=== PATIENT | female | born 1955 | race Caucasian/White ===

== ENCOUNTER → 2016-05-10 | Outpatient (CLI) | payer OTHER ==
[~2016-05-10] MED LIST: /CELE20CA; /HCTZ25TA PO; /ONDA4TA OR; /PANT40TA OR; /PRAV20TA PO; /QUET10TA; /ZOLP6ER; AMBI10TA; AMBI10TA OR; AMBI5TAB; AMIT75TA PO; ARTIDRO OU; ASPI81TA7 PO; BUDE150T OR; BUSP15TA OR; BUSP5TA PO; CALCCHW19 PO; CLON1TAB OR; CLON2TAB PO; COLA100C2 OR; DALMANE PO; DEPAKOTE ER; DOCU10ELUD PO; EFFE75CA75 OR; HYDR12.56 PO; HYDR25TA6 OR; HYDR25TA8 OR; IBUP800T; KLON0.5T OR; KLON1TAB; KLON1TAB OR; KLON1TAB PO; LAMICTAL PO; LUNE3TAB PO; LYRI150C OR; LYRI200C OR; PAXI20TA3 PO; PRAV10TA2 OR; PREG100CA OR; PROZ20CA OR; PROZ20CA11 PO; PROZ40CA OR; PROZ40CA PO; PROZAC20 PO; PROZAC40 PO; QUET20XRTB; QUET30TA OR; SENO8.6T5; SER; SERO200T PO; SEROQUEL PO; SUBOXONE; Seroquel; TOPA50TA PO; TRAZ100T; TRAZ100T OR; TRAZ150T PO; TRAZODONE PO; Trazodone; VICODIN-ES 1-2 TABS; VICODIN-ES PO; WELL100T OR; WELL75TA PO; WELLTAB4 PO; XANA1TAB2 PO; ZOLO100T; ZOLO50TA; ZOLOFT; ZOLOFT100; ambien PO
[2016-05-10 12:56] LABS: ALBUMIN 3.9 GM/DL (3.2-5.2); ALBUMIN/GLOBULIN RATIO 1.08 (1.00-1.93); ALKALINE PHOSPHATASE 62 U/L (45-117); ALT/SGPT 34 U/L (12-78); ANION GAP 8 MEQ/L (8-16); AST/SGOT 21 U/L (15-37); BILIRUBIN,TOTAL 0.8 MG/DL (0.2-1.0); BLOOD UREA NITROGEN 12 MG/DL (7-18); CALCIUM LEVEL 9.3 MG/DL (8.5-10.1); CARBON DIOXIDE LEVEL 29 MEQ/L (21-32); CHLORIDE LEVEL 103 MEQ/L (98-107); CHOLESTEROL LEVEL 239 MG/DL (<200); CREATININE FOR GFR 0.82 MG/DL (0.55-1.02); GLOMERULAR FILTRATION RATE > 60.0 (>51); GLUCOSE, FASTING 102 MG/DL (70-105); POTASSIUM SERUM 4.5 MEQ/L (3.5-5.1); SODIUM LEVEL 140 MEQ/L (136-145); TOTAL PROTEIN 7.5 GM/DL (6.4-8.2); TRIGLYCERIDES LEVEL 135 MG/DL (<150)
[2016-05-11 16:57] LABS: FERRITIN 51 NG/ML (8-252); MAGNESIUM LEVEL 2.2 MG/DL (1.8-2.4)
[2016-05-11 18:28] LABS: PERCENT SATURATION 23.9 % (13.2-37.4); TOTAL IRON BINDING CAPACITY 364 UG/DL (250-450)
== END ==
LOC: M WUC 09:25
PROVIDERS: ATTEND Student in an Organized Health Care Education/Training Program
DX: E78.5 Hyperlipidemia, unspecified (principal); I10 Essential (primary) hypertension

== ENCOUNTER 2016-07-07 10:07 | Emergency (ER) | payer OTHER ==
[~2016-07-07] VITALS: Ht 165.1 cm; Wt 91.6 kg
[2016-07-07] MEDS ORDERED: TRAZ50TA4 (10:28)
[2016-07-07] MEDS ORDERED: SENE8.6T3 (10:28)
[2016-07-07] MEDS ORDERED: VITA200015 (10:28)
[2016-07-07] MEDS ORDERED: FLUO20CA9 (10:28)
[2016-07-07] MEDS ORDERED: GABA-282 (10:28)
[2016-07-07] MEDS ORDERED: HYDR25T (10:28)
[2016-07-07] MEDS ORDERED: KETOROLAC 60 MG/2 ML VIAL (J1885) IM ONE (10:45)
--- NOTE | 2016-07-07 10:59 | REP ---
CT Head without contrast HISTORY: Headache COMPARISON: 01/30/2012 There is no intraparenchymal hemorrhage, acute infarct, mass or midline shift. The ventricular system and cortical sulci are dilated consistent with minimal volume loss. There is no extra cerebral collection. There is no fracture. The visualized sinuses are clear. IMPRESSION: Minimal volume loss. Signed by Manolo Bowles MD 07/07/2016 10:51 A
[2016-07-07 11:25] VITALS: BP 134/69
== END 2016-07-07 11:35 | disposition home or self-care (01) ==
LOC: M ED 11:01
DX: R51 Headache (principal); I10 Essential (primary) hypertension; Z86.73 Personal history of transient ischemic attack (TIA), and cerebral infarction without residual deficits
CPT/HCPCS: 70450; 96372; 99282; J1885

== ENCOUNTER → 2016-09-05 | Outpatient (REF) | payer BC ==
[~2016-09-05] MED LIST changes: +FLUO20CA9; +GABA-282; +HYDR25T; +SENE8.6T3; +TRAZ50TA4; +VITA200015
== END ==
LOC: M SFHCPLAZ 12:09
PROVIDERS: ATTEND Family Medicine
DX: F32.9 Major depressive disorder, single episode, unspecified (principal); E55.9 Vitamin D deficiency, unspecified

== ENCOUNTER → 2016-10-24 | Outpatient (REF) | payer MEDICAID ==
[~2016-10-24] MED LIST changes: +FLUO20CA19; -FLUO20CA9; +HYDR-3363; -HYDR25T; +TRAZ50TA11; -TRAZ50TA4
[2016-10-24 11:12] LABS: BASO % 1.2 % (0.0-1.0); EOS # 0.2 K/mm3 (0.0-0.50); EOS % 5.4 % (0.0-3.0); LARGE UNSTAINED CELL # 0.1 K/mm3 (0.0-0.4); LARGE UNSTAINED CELL % 2.7 % (0.0-4.0); LYMPH # 2.1 K/mm3 (1.5-4.5); LYMPH % 44.4 % (24.0-44.0); MEAN CORPUSCULAR HEMOGLOBIN 30.2 pg (27.0-33.0); MEAN CORPUSCULAR HGB CONC 34.5 g/dl (32.0-36.5); MEAN CORPUSCULAR VOLUME 87.7 fl (80.0-96.0); MONO # 0.3 K/mm3 (0.0-0.8); MONO % 6.5 % (0.0-5.0); NEUTROPHILS # 1.8 K/mm3 (1.8-7.7); NEUTROPHILS % 39.8 % (36.0-66.0); PLATELET COUNT, AUTOMATED 262 k/mm3 (150-450); RED CELL DISTRIBUTION WIDTH 13.7 % (11.5-14.5); WHITE BLOOD COUNT 4.4 K/mm3 (4.0-10.0)
[2016-10-24 11:41] LABS: ALBUMIN 3.7 GM/DL (3.2-5.2); ALBUMIN/GLOBULIN RATIO 1.09 (1.00-1.93); ALKALINE PHOSPHATASE 66 U/L (45-117); ALT/SGPT 29 U/L (12-78); ANION GAP 11 MEQ/L (8-16); AST/SGOT 24 U/L (15-37); BILIRUBIN,TOTAL 0.4 MG/DL (0.2-1.0); BLOOD UREA NITROGEN 18 MG/DL (7-18); CALCIUM LEVEL 8.8 MG/DL (8.8-10.2); CARBON DIOXIDE LEVEL 25 MEQ/L (21-32); CHLORIDE LEVEL 106 MEQ/L (98-107); CREATININE FOR GFR 0.81 MG/DL (0.55-1.02); GLOMERULAR FILTRATION RATE > 60.0 (>45); GLUCOSE, FASTING 115 MG/DL (80-110); POTASSIUM SERUM 4.6 MEQ/L (3.5-5.1); SODIUM LEVEL 142 MEQ/L (136-145); TOTAL PROTEIN 7.1 GM/DL (6.4-8.2); VITAMIN B12 LEVEL 262 PG/ML (247-911)
== END ==
LOC: M SFHCPLAZ 09:37
PROVIDERS: ATTEND Student in an Organized Health Care Education/Training Program
DX: I10 Essential (primary) hypertension (principal); R53.82 Chronic fatigue, unspecified; R73.02 Impaired glucose tolerance (oral)

== ENCOUNTER → 2016-11-08 | Outpatient (REF) | payer MEDICAID ==
[2016-11-08 14:59] LABS: FREE T4 1.11 NG/DL (0.76-1.46)
== END ==
LOC: M SFHCPLAZ 11:26
PROVIDERS: ATTEND Family Medicine
DX: R82.90 Unspecified abnormal findings in urine (principal); R73.09 Other abnormal glucose; R53.83 Other fatigue

== ENCOUNTER → 2017-06-18 | Outpatient (CLI) | payer OTHER ==
[2017-06-18 11:43] LABS: ALBUMIN 3.6 GM/DL (3.2-5.2); ALBUMIN/GLOBULIN RATIO 0.95 (1.00-1.93); ALKALINE PHOSPHATASE 68 U/L (45-117); ALT/SGPT 73 U/L (12-78); ANION GAP 6 MEQ/L (8-16); AST/SGOT 45 U/L (7-37); BILIRUBIN,TOTAL 0.4 MG/DL (0.2-1.0); BLOOD UREA NITROGEN 11 MG/DL (7-18); CALCIUM LEVEL 9.2 MG/DL (8.8-10.2); CARBON DIOXIDE LEVEL 28 MEQ/L (21-32); CHLORIDE LEVEL 109 MEQ/L (98-107); CHOLESTEROL LEVEL 236 MG/DL (<200); CHOLESTEROL RISK RATIO 2.681 (<5); CREATININE FOR GFR 0.89 MG/DL (0.55-1.30); GLOMERULAR FILTRATION RATE > 60.0 (>45); GLUCOSE, FASTING 132 MG/DL (70-100); HDL CHOLESTEROL 88 MG/DL (>40); LDL CHOLESTEROL 111.6 MG/DL (<100); NON-HDL-C 148 MG/DL; PHOSPHORUS LEVEL 3.3 MG/DL (2.5-4.9); POTASSIUM SERUM 4.4 MEQ/L (3.5-5.1); SODIUM LEVEL 143 MEQ/L (136-145); TOTAL PROTEIN 7.4 GM/DL (6.4-8.2); TRIGLYCERIDES LEVEL 182 MG/DL (<150)
== END ==
LOC: M LAB 10:09
DX: R07.2 Precordial pain (principal)
CPT/HCPCS: 83735

== ENCOUNTER → 2017-07-03 | Outpatient (CLI) | payer OTHER | LOC: M WHC 10:07 | DX: Z12.31 Encounter for screening mammogram for malignant neoplasm of breast (principal); Z78.0 Asymptomatic menopausal state | CPT/HCPCS: 77067 ==

== ENCOUNTER → 2017-07-03 | Outpatient (REF) | payer OTHER | LOC: M SFHCWAGY 10:16 | DX: Z12.4 Encounter for screening for malignant neoplasm of cervix (principal) ==

== ENCOUNTER → 2017-07-18 | Outpatient (REF) | payer OTHER | LOC: M LAB REF 09:46 | DX: N39.0 Urinary tract infection, site not specified (principal) ==

== ENCOUNTER → 2017-08-16 | Outpatient (REF) | payer OTHER ==
[2017-08-16 18:48] LABS: ESTIMATED AVERAGE GLUCOSE 137 MG/DL (60-110); HEMOGLOBIN A1c 6.4 %
[2017-08-16 18:54] LABS: MALB URINE SIEMENS < 5.0 MG/L; MAU/CREAT RATIO 5.2 MCG/MG (0.0-30.0)
[2017-08-16 18:57] LABS: ALBUMIN 3.6 GM/DL (3.2-5.2); ALBUMIN/GLOBULIN RATIO 1.09 (1.00-1.93); ALKALINE PHOSPHATASE 71 U/L (45-117); ALT/SGPT 45 U/L (12-78); ANION GAP 7 MEQ/L (8-16); AST/SGOT 29 U/L (7-37); BILIRUBIN,TOTAL 0.4 MG/DL (0.2-1.0); BLOOD UREA NITROGEN 13 MG/DL (7-18); CALCIUM LEVEL 9.3 MG/DL (8.8-10.2); CARBON DIOXIDE LEVEL 28 MEQ/L (21-32); CHLORIDE LEVEL 105 MEQ/L (98-107); CHOLESTEROL LEVEL 200 MG/DL (<200); CHOLESTEROL RISK RATIO 2.816 (<5); CREATININE FOR GFR 0.79 MG/DL (0.55-1.30); GLOMERULAR FILTRATION RATE > 60.0 (>45); GLUCOSE, FASTING 109 MG/DL (70-100); HDL CHOLESTEROL 71 MG/DL (>40); LDL CHOLESTEROL 61.6 MG/DL (<100); NON-HDL-C 129 MG/DL; POTASSIUM SERUM 4.3 MEQ/L (3.5-5.1); SODIUM LEVEL 140 MEQ/L (136-145); TOTAL PROTEIN 6.9 GM/DL (6.4-8.2); TRIGLYCERIDES LEVEL 337 MG/DL (<150)
== END ==
LOC: M SFHCPLAZ 14:56
DX: R63.5 Abnormal weight gain (principal); E11.9 Type 2 diabetes mellitus without complications

== ENCOUNTER 2017-11-15 11:46 | Emergency (ER) | payer OTHER ==
[2017-11-15 13:34] LABS: ALBUMIN 3.6 GM/DL (3.2-5.2); ALBUMIN/GLOBULIN RATIO 0.95 (1.00-1.93); ALKALINE PHOSPHATASE 67 U/L (45-117); ALT/SGPT 54 U/L (12-78); ANION GAP 7 MEQ/L (8-16); AST/SGOT 30 U/L (7-37); BILIRUBIN,DIRECT 0.2 MG/DL (0.0-0.2); BLOOD UREA NITROGEN 17 MG/DL (7-18); CARBON DIOXIDE LEVEL 29 MEQ/L (21-32); CHLORIDE LEVEL 104 MEQ/L (98-107); CPK CREATINE PHOSPHOKINASE 77 U/L (26-192); CREATININE FOR GFR 1.03 MG/DL (0.55-1.30); GLUCOSE, FASTING 109 MG/DL (70-100); POTASSIUM SERUM 4.1 MEQ/L (3.5-5.1); SODIUM LEVEL 140 MEQ/L (136-145); TOTAL PROTEIN 7.4 GM/DL (6.4-8.2); TROPONIN I < 0.02 NG/ML (< 0.10)
[2017-11-15 13:36] LABS: BEDSIDE GLUCOSE 113 MG/DL (80-115)
[2017-11-15 13:40] LABS: BASO % 0.6 % (0.0-1.0); CK-MB VALUE MASS < 1.0 NG/ML (<3.6); EOS # 0.3 10^3/uL (0.0-0.50); EOS % 6.8 % (0.0-3.0); HEMATOCRIT 42.8 % (36.0-47.0); HEMOGLOBIN 14.6 g/dl (12.0-15.5); IMMATURE GRANULOCYTE % 0.4 % (0-3.0); LYMPH # 2.2 10^3/uL (1.5-4.5); LYMPH % 46.3 % (24.0-44.0); MB/CK RELATIVE INDEX 1.29 (< OR =4); MEAN CORPUSCULAR HEMOGLOBIN 31.6 pg (27.0-33.0); MEAN CORPUSCULAR HGB CONC 34.1 g/dl (32.0-36.5); MEAN CORPUSCULAR VOLUME 92.6 fl (80.0-96.0); MONO # 0.4 10^3/uL (0.0-0.8); MONO % 8.7 % (0.0-5.0); NEUTROPHILS # 1.7 10^3/uL (1.8-7.7); NEUTROPHILS % 37.2 % (36.0-66.0); PLATELET COUNT, AUTOMATED 203 10^3/uL (150-450); RED BLOOD COUNT 4.62 10^6/uL (4.00-5.40); RED CELL DISTRIBUTION WIDTH 13.3 % (11.5-14.5); WHITE BLOOD COUNT 4.7 10^3/uL (4.0-10.0)
[2017-11-15] MEDS: NS 1,000 ML IV (13:42)
[2017-11-15] MEDS: MECLIZINE 25 MG TABLET PO (13:43)
[2017-11-15 14:10] LABS: KETONE, URINE AUTO RFX NEGATIVE (NEGATIVE); MUCUS, URINE RFX SMALL (NEGATIVE); NITRITE, URINE AUTO RFX NEGATIVE (NEGATIVE); RBC, URINE AUTO RFX 1 /HPF (0-3); SPECIFIC GRAVITY UR AUTO RFX 1.008 (1.002-1.035); SQUAM EPITHELIAL CELL UR AURFX 9 /HPF (0-6); WBC, URINE AUTO RFX 3 /HPF (0-3)
[2017-11-15 14:28] LABS: LEUKOCYTE ESTERASE UR AUTO RFX TRACE (NEGATIVE)
== END 2017-11-15 15:36 | disposition home or self-care (01) ==
LOC: M ED 11:46
DX: H83.09 Labyrinthitis, unspecified ear (principal); E11.9 Type 2 diabetes mellitus without complications; Z79.899 Other long term (current) drug therapy; Z88.8 Allergy status to other drugs, medicaments and biological substances; Z91.013 Allergy to seafood
CPT/HCPCS: 71046

== ENCOUNTER → 2017-12-12 | Outpatient (REF) | payer OTHER, MEDICAID | LOC: M LAB REF 18:24 | DX: L92.1 Necrobiosis lipoidica, not elsewhere classified (principal) ==

== ENCOUNTER → 2018-02-19 | Outpatient (REF) | payer OTHER ==
[2018-02-19 16:25] LABS: BLOOD UREA NITROGEN 16 MG/DL (7-18); CARBON DIOXIDE LEVEL 29 MEQ/L (21-32); CHLORIDE LEVEL 105 MEQ/L (98-107); CREATININE FOR GFR 0.87 MG/DL (0.55-1.30); GLOMERULAR FILTRATION RATE > 60.0 (>45); GLUCOSE, FASTING 108 MG/DL (70-100); POTASSIUM SERUM 4.6 MEQ/L (3.5-5.1); SODIUM LEVEL 141 MEQ/L (136-145)
[2018-02-19 16:26] LABS: ALBUMIN 3.7 GM/DL (3.2-5.2); ALBUMIN/GLOBULIN RATIO 1.16 (1.00-1.93); ALKALINE PHOSPHATASE 59 U/L (45-117); ALT/SGPT 41 U/L (12-78); ANION GAP 7 MEQ/L (8-16); AST/SGOT 23 U/L (7-37); BILIRUBIN,TOTAL 0.6 MG/DL (0.2-1.0); C REACTIVE PROTEIN QUANTITATIV < 0.30 MG/DL (0.00-0.30); CALCIUM LEVEL 9.4 MG/DL (8.8-10.2); CHOLESTEROL LEVEL 215 MG/DL (<200); CHOLESTEROL RISK RATIO 2.311 (<5); HDL CHOLESTEROL 93 MG/DL (>40); LDL CHOLESTEROL 99 MG/DL (<100); NON-HDL-C 122 MG/DL; THYROID STIMULATING HORMONE 0.793 uIU/ML (0.358-3.740); TOTAL PROTEIN 6.9 GM/DL (6.4-8.2); TRIGLYCERIDES LEVEL 113 MG/DL (<150)
[2018-02-21 10:12] LABS: TISSUE TRANSGLUTAMINASE IgG <2 U/mL (0-5)
== END ==
LOC: M SFHCPLAZ 14:21
DX: K58.2 Mixed irritable bowel syndrome (principal)
CPT/HCPCS: 84443

== ENCOUNTER → 2018-07-08 | Outpatient (REF) | payer OTHER ==
[~2018-07-08] MED LIST changes: -/CELE20CA; -/HCTZ25TA PO; -/ONDA4TA OR; -/PANT40TA OR; -/PRAV20TA PO; -/QUET10TA; +BUPR300T34; +CELE1CAP4; -DOCU10ELUD PO; +DOCU5LIQ PO; -GABA-282; +GABA-843; +HYDR-3644 PO; +MECL-68 PO; +ONDA-1 OR; +PRAV1TAB39 PO; +PROT1TAB2 OR; -QUET20XRTB; +SERO1TAB; +SERO200T43; +TRAZ-160; -TRAZ50TA11
== END ==
LOC: M SFHCPLAZ 20:49
PROVIDERS: ATTEND Dermatology
DX: D48.5 Neoplasm of uncertain behavior of skin (principal)

== ENCOUNTER → 2018-10-30 | Outpatient (CLI) | payer OTHER, SELFPAY ==
[~2018-10-30] MED LIST changes: -TRAZ-160; +TRAZ-252
--- NOTE | 2018-11-05 00:33 | SLEEPHOME ---
DATE OF PROCEDURE: 10/30/2018 ORDERED BY: PAYTON Rivera Diagnostic home sleep testing was performed due to concern for the obstructive sleep apnea syndrome in this patient with a history of excessive somnolence and nonrestorative sleep. For testing a nocturnal T3 respiratory monitoring device was used. Continuous record was made of pulse, oxygen saturation, airflow, chest, abdominal strain and body position. 9 hours and 59 minutes of data were reviewed. There were 7 hours and 18 minutes marked as time in bed. During the interval marked time in bed, there were 64 respiratory events identified of 10 seconds in duration or greater for a respiratory event index of 8.8. The events were primarily obstructive. Baseline pulse rate 58, pulse rate ranged 49-90. Baseline saturation 89%, saturations fell to 83%. Testing was performed in both the supine and nonsupine positions. IMPRESSION: Abnormal home sleep testing with repetitive respiratory events and oxygen desaturations to 83% with a respiratory event index of 8.8 is consistent with the obstructive sleep apnea syndrome. RECOMMENDATIONS: The patient should be encouraged to undergo a formal sleep evaluation.
== END ==
LOC: M SLEEP HO 10-24 09:51
PROVIDERS: ATTEND Nurse Practitioner Family
DX: R40.0 Somnolence (principal)

== ENCOUNTER → 2018-12-05 | Outpatient (REF) | payer OTHER ==
[2018-12-05 19:43] LABS: HEMOGLOBIN A1c 6.8 %
[2018-12-05 19:55] LABS: CREATININE, URINE 83.9 MG/DL; MALB URINE SIEMENS < 5.0 MG/L; MAU/CREAT RATIO 5.9 MCG/MG (0.0-30.0)
[2018-12-05 19:59] LABS: BLOOD UREA NITROGEN 14 MG/DL (7-18); CALCIUM LEVEL 9.4 MG/DL (8.8-10.2); CARBON DIOXIDE LEVEL 30 MEQ/L (21-32); CHLORIDE LEVEL 103 MEQ/L (98-107); CHOLESTEROL LEVEL 159 MG/DL (<200); CHOLESTEROL RISK RATIO 2.038 (<5); CREATININE FOR GFR 0.77 MG/DL (0.55-1.30); GLOMERULAR FILTRATION RATE > 60.0 (>45); GLUCOSE, FASTING 90 MG/DL (70-100); HDL CHOLESTEROL 78 MG/DL (>40); LDL CHOLESTEROL 48 MG/DL (<100); NON-HDL-C 81 MG/DL; POTASSIUM SERUM 4.5 MEQ/L (3.5-5.1); SODIUM LEVEL 139 MEQ/L (136-145); TOTAL 25(OH) VITAMIN D 28.1 NG/ML (30.0-100.0); TRIGLYCERIDES LEVEL 165 MG/DL (<150)
== END ==
LOC: M SFHCPLAZ 14:38
DX: E11.9 Type 2 diabetes mellitus without complications (principal)

== ENCOUNTER → 2019-05-07 | Outpatient (CLI) | payer OTHER ==
[~2019-05-07] MED LIST changes: -BUPR300T34; +BUPR300T92; -FLUO20CA19; +FLUO20CA22; -MECL-68 PO; +MECL1TAB31 PO
--- NOTE | 2019-05-07 11:17 | REP ---
Clinical: Acute lower back pain. Technique: AP, lateral, bilateral oblique and coned-down views of the lumbosacral spine. Comparison: 11/16/2017 Findings: Alignment and lordosis maintained. No acute fracture / compression injury or subluxation. No spondylolysis or spondylolisthesis. Moderate to early advanced multilevel degenerative changes include endplate sclerosis, marginal spurring, disc space narrowing and hypertrophic facet changes most pronounced at the L5-S1, L4-5, and L3-4 levels. Calcified granulomata in the gluteal region again identified. Impression: Moderate/early advanced multilevel degenerative changes minimally progressed from prior examination. Electronically Signed by Alexis Garza MD 05/07/2019 11:08 A
== END ==
LOC: M RAD 10:38
PROVIDERS: ATTEND Student in an Organized Health Care Education/Training Program
DX: M54.5 Low back pain (principal)

== ENCOUNTER → 2019-07-09 | Outpatient (CLI) | payer OTHER ==
[2019-07-09 11:45] LABS: MALB URINE SIEMENS 7.6 MG/L; MAU/CREAT RATIO 4.7 MCG/MG (0.0-30.0)
[2019-07-09 12:12] LABS: BLOOD UREA NITROGEN 14 MG/DL (7-18); CALCIUM LEVEL 9.7 MG/DL (8.8-10.2); CARBON DIOXIDE LEVEL 28 MEQ/L (21-32); CHLORIDE LEVEL 104 MEQ/L (98-107); CHOLESTEROL LEVEL 176 MG/DL (<200); CREATININE FOR GFR 0.84 MG/DL (0.55-1.30); GLOMERULAR FILTRATION RATE > 60.0 (>45); GLUCOSE, FASTING 153 MG/DL (70-100); HDL CHOLESTEROL 85 MG/DL (>40); LDL CHOLESTEROL 66 MG/DL (<100); NON-HDL-C 91 MG/DL; POTASSIUM SERUM 4.5 MEQ/L (3.5-5.1); SODIUM LEVEL 139 MEQ/L (136-145); TRIGLYCERIDES LEVEL 127 MG/DL (<150)
[2019-07-09 12:57] LABS: HEMOGLOBIN A1c 7.8 %
== END ==
LOC: M LAB 09:13
PROVIDERS: ATTEND Internal Medicine
DX: E11.9 Type 2 diabetes mellitus without complications (principal)

== ENCOUNTER → 2019-08-26 | Outpatient (CLI) | payer OTHER ==
--- NOTE | 2019-08-26 10:08 | REP ---
MR LUMBAR SPINE: 08/26/2019 INDICATION: Low back pain with incontinence. TECHNIQUE: Multiplanar short and long TR sequences of the lumbar spine were obtained without IV gadolinium. COMPARISON: None. FINDINGS: Minimal retrolisthesis of L5 on S1 is present. Vertebral body alignment is otherwise unremarkable. Chronic appearing Schmorl's nodes are noted within the inferior L3 and L4 endplates. Disc desiccation and disc space narrowing are present at L3-L4 and to a lesser extent L4-L5. The visualized cord is unremarkable as are the paraspinal soft tissues. There is a small focus of elevated T1 and T2 signal within the right pedicle of L5 most consistent with an intraosseous hemangioma or focal fatty marrow. L1-2 and L2-3: There is no focal disc herniation or significant spinal canal/neural foraminal narrowing. L3-4: Diffuse disc and spur complex most pronounced anteriorly bilateral facet arthropathy and mild ligamental laxity are present. There is mild narrowing of the spinal canal/lateral recesses. Moderate left and mild right neural foraminal narrowing is present. L4-5: Diffuse disc and spur complex is present most pronounced anteriorly on the right. Bilateral facet arthropathy and mild ligamental laxity are additionally noted. There is mild narrowing of the spinal canal. Moderate left greater than right neural foraminal narrowing is present. L5-S1: Diffuse disc bulge is present with mild bilateral facet arthropathy. There is mild narrowing of the spinal canal. Mild to moderate bilateral neural foraminal narrowing is present. IMPRESSION: Degenerative sequelae of the lumbar spine as described without significant spinal canal or neural foraminal narrowing. MTDD
== END ==
LOC: M RAD 06:30
PROVIDERS: ATTEND Internal Medicine
DX: M54.5 Low back pain (principal); R32 Unspecified urinary incontinence

== ENCOUNTER → 2019-12-08 | Outpatient (CLI) | payer OTHER ==
[2019-12-08 14:46] LABS: HEMATOCRIT 41.6 % (36.0-47.0); HEMOGLOBIN 14.2 g/dl (12.0-15.5); MEAN CORPUSCULAR HEMOGLOBIN 31.6 pg (27.0-33.0); MEAN CORPUSCULAR HGB CONC 34.1 g/dl (32.0-36.5); MEAN CORPUSCULAR VOLUME 92.4 fl (80.0-96.0); PLATELET COUNT, AUTOMATED 222 10^3/uL (150-450); WHITE BLOOD COUNT 5.2 10^3/uL (4.0-10.0)
[2019-12-08 15:20] LABS: MALB URINE SIEMENS 12.3 MG/L; MAU/CREAT RATIO 5.4 MCG/MG (0.0-30.0)
[2019-12-08 15:39] LABS: BLOOD UREA NITROGEN 17 MG/DL (7-18); CARBON DIOXIDE LEVEL 26 MEQ/L (21-32); CHLORIDE LEVEL 103 MEQ/L (98-107); GLOMERULAR FILTRATION RATE > 60.0 (>45); GLUCOSE, FASTING 131 MG/DL (70-100); POTASSIUM SERUM 4.4 MEQ/L (3.5-5.1); SODIUM LEVEL 134 MEQ/L (136-145)
[2019-12-08 15:40] LABS: CALCIUM LEVEL 9.9 MG/DL (8.8-10.2); CHOLESTEROL LEVEL 171 MG/DL (<200); CHOLESTEROL RISK RATIO 1.781 (<5); HDL CHOLESTEROL 96 MG/DL (>40); LDL CHOLESTEROL 49 MG/DL (<100); NON-HDL-C 75 MG/DL; TRIGLYCERIDES LEVEL 129 MG/DL (<150)
[2019-12-08 17:00] LABS: HEMOGLOBIN A1c 7.5 %
== END ==
LOC: M LAB 14:14
DX: E11.8 Type 2 diabetes mellitus with unspecified complications (principal)

== ENCOUNTER → 2020-02-24 | Outpatient (CLI) | payer SELFPAY | LOC: M LABSMTC 14:50 | PROVIDERS: ATTEND Pediatrics | DX: Z11.59 Encounter for screening for other viral diseases (principal) ==

== ENCOUNTER → 2020-04-13 | Outpatient (REF) | payer OTHER ==
[~2020-04-13] MED LIST changes: +GABA-282; -GABA-843
[2020-04-13 14:41] LABS: ALT/SGPT 49 U/L (12-78); BILIRUBIN,TOTAL 0.6 MG/DL (0.2-1.0); BLOOD UREA NITROGEN 15 MG/DL (7-18); CALCIUM LEVEL 10.1 MG/DL (8.8-10.2); CARBON DIOXIDE LEVEL 31 MEQ/L (21-32); CHLORIDE LEVEL 102 MEQ/L (98-107); CHOLESTEROL LEVEL 167 MG/DL (<200); CHOLESTEROL RISK RATIO 1.795 (<5); CREATININE FOR GFR 0.88 MG/DL (0.55-1.30); GLOMERULAR FILTRATION RATE > 60.0 (>45); GLUCOSE, FASTING 107 MG/DL (70-100); HDL CHOLESTEROL 93 MG/DL (>40); LDL CHOLESTEROL 57 MG/DL (<100); NON-HDL-C 74 MG/DL; POTASSIUM SERUM 4.8 MEQ/L (3.5-5.1); SODIUM LEVEL 137 MEQ/L (136-145); TOTAL PROTEIN 7.5 GM/DL (6.4-8.2); TRIGLYCERIDES LEVEL 83 MG/DL (<150)
[2020-04-13 15:13] LABS: MALB URINE SIEMENS 6.3 MG/L; MAU/CREAT RATIO 3.5 MCG/MG (0.0-30.0)
[2020-04-13 16:13] LABS: HEMOGLOBIN A1c 6.6 %
== END ==
LOC: M SFHCPLAZ 11:45
PROVIDERS: ATTEND Family Medicine
DX: E11.9 Type 2 diabetes mellitus without complications (principal)

== ENCOUNTER 2020-06-01 12:37 | Inpatient (IN) | payer MEDICAID, OTHER ==
[~2020-06-01] VITALS: Ht 167.6 cm; Wt 87.4 kg
[~2020-06-01 12:37] MED LIST changes: +FLUO20CA22 PO; -TRAZ-252; +TRAZ-252 PO
[2020-06-01] MEDS ORDERED: LISI10TA22 PO (12:50)
[2020-06-01] MEDS ORDERED: TRUL0.5I SQ (12:50)
[2020-06-01] MEDS ORDERED: ATOR1TAB21 PO (12:50)
[2020-06-01 13:55] LABS: HEMOGLOBIN 14.4 g/dl (12.0-15.5); MEAN CORPUSCULAR HEMOGLOBIN 30.4 pg (27.0-33.0); MEAN CORPUSCULAR HGB CONC 32.7 g/dl (32.0-36.5); PLATELET COUNT, AUTOMATED 223 10^3/uL (150-450); RED BLOOD COUNT 4.73 10^6/uL (4.00-5.40); WHITE BLOOD COUNT 5.6 10^3/uL (4.0-10.0)
[2020-06-01 14:33] LABS: ACETAMINOPHEN LEVEL < 2.0 UG/ML (10.0-30.0); ALBUMIN 3.7 GM/DL (3.2-5.2); ALT/SGPT 57 U/L (12-78); AMPHETAMINES LEVEL URINE NEGATIVE (NEGATIVE); BARBITURATES URINE NEGATIVE (NEGATIVE); BENZODIAZEPINES URINE NEGATIVE (NEGATIVE); BILIRUBIN,DIRECT 0.2 MG/DL (0.0-0.2); BILIRUBIN,TOTAL 0.6 MG/DL (0.2-1.0); BLOOD UREA NITROGEN 14 MG/DL (7-18); CALCIUM LEVEL 9.7 MG/DL (8.8-10.2); CANNABINOIDS URINE NEGATIVE (NEGATIVE); CARBON DIOXIDE LEVEL 33 MEQ/L (21-32); CHLORIDE LEVEL 104 MEQ/L (98-107); COCAINE METABOLITE URINE NEGATIVE (NEGATIVE); CREATININE FOR GFR 0.88 MG/DL (0.55-1.30); ETHYL ALCOHOL (ETHANOL) < 0.003 % (0.000-0.010); GLOMERULAR FILTRATION RATE > 60.0 (>45); GLUCOSE, FASTING 103 MG/DL (70-100); METHADONE URINE NEGATIVE (NEGATIVE); OPIATES URINE NEGATIVE (NEGATIVE); PHENCYCLIDINE URINE NEGATIVE (NEGATIVE); POTASSIUM SERUM 3.7 MEQ/L (3.5-5.1); SALICYLATE LEVEL < 1.7 MG/DL (5.0-30.0); SODIUM LEVEL 140 MEQ/L (136-145); TOTAL PROTEIN 7.1 GM/DL (6.4-8.2)
[2020-06-01] MEDS ORDERED: ASPI81TA27 PO (15:39)
[2020-06-01 16:32] LABS: RSV AMPLIFICATION NEGATIVE (NEGATIVE)
[2020-06-01] MEDS ORDERED: ACETAMINOPHEN TAB 650MG DOSE (2X325MG) PO PRN (16:55)
[2020-06-01] MEDS ORDERED: traZODone 50 MG TAB PO PRN (16:55)
[2020-06-01] MEDS ORDERED: MAALOX 30 ML SUSP *UDC PO PRN (16:55)
[2020-06-01] MEDS ORDERED: MOM 30ML SUSPENSION UDC PO PRN (16:55)
[2020-06-01 19:17] VITALS: BP 11/60
[2020-06-02 06:37] VITALS: BP 115/58
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
[2020-06-02] MEDS ORDERED: GLUCAGON INJ 1MG VIAL SC PRN (16:30)
[2020-06-02] MEDS ORDERED: DEXTROSE 50% 50 ML SYRINGE IV PRN (16:30)
[2020-06-02] MEDS ORDERED: GLUCOSE 4GM CHEW TABLET PO PRN (16:30)
[2020-06-02 16:42] VITALS: BP 140/70
[2020-06-02] MEDS: ATORVASTATIN 20 MG TAB PO SCH (17:06)
[2020-06-02] MEDS: ASPIRIN 81MG ENTERIC TABLET PO SCH (17:06)
[2020-06-02] MEDS: HumaLOG INSULIN (NovoLOG) PER UNIT SC SCH (17:12)
[2020-06-02] MEDS ORDERED: HumaLOG INSULIN (NovoLOG) PER UNIT SC SCH (21:00)
[2020-06-03 06:15] VITALS: BP 132/73
[2020-06-03] MEDS: HumaLOG INSULIN (NovoLOG) PER UNIT SC SCH (07:04)
[2020-06-03 09:05] VITALS: BP 132/73
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
[2020-06-03 09:44] VITALS: BP 132/73
[2020-06-03] MEDS: ASPIRIN 81MG ENTERIC TABLET PO SCH (09:44)
[2020-06-03] MEDS: ATORVASTATIN 20 MG TAB PO SCH (09:44)
== END 2020-06-03 11:15 | disposition home or self-care (01) | DRG 754 ==
LOC: M ED 12:37 → M ED INP 16:51 → M PSY 17:20
PROVIDERS: ADMIT Psychiatry & Neurology Child & Adolescent Psychiatry; ATTEND Psychiatry & Neurology Child & Adolescent Psychiatry
DX: F43.21 Adjustment disorder with depressed mood (principal); E11.9 Type 2 diabetes mellitus without complications; R45.851 Suicidal ideations; Z79.899 Other long term (current) drug therapy; Z79.82 Long term (current) use of aspirin; Z88.8 Allergy status to other drugs, medicaments and biological substances; Z91.013 Allergy to seafood; F41.9 Anxiety disorder, unspecified; Z86.73 Personal history of transient ischemic attack (TIA), and cerebral infarction without residual deficits; I10 Essential (primary) hypertension; E78.5 Hyperlipidemia, unspecified

== ENCOUNTER → 2020-07-21 | Outpatient (REF) | payer OTHER ==
[~2020-07-21] MED LIST changes: +ASPI81TA27 PO; +ATOR1TAB21 PO; +BUPR150T12 PO; +CLON0.5T2 PO; +KP F1200 PO; +LISI10TA22 PO; +SENN8.6T58 PO; +TRUL0.5I SQ; +VITA-243 PO; +ZOLP10TA2 PO
== END ==
LOC: M SFHCWAGY 10:09
PROVIDERS: ATTEND Nurse Practitioner Women's Health
DX: Z12.4 Encounter for screening for malignant neoplasm of cervix (principal); R87.610 Atypical squamous cells of undetermined significance on cytologic smear of cervix (ASC-US)

== ENCOUNTER → 2020-07-21 | Outpatient (CLI) | payer OTHER ==
--- NOTE | 2020-07-21 16:06 | REPMRS ---
Patient History The patient states she had a clinical breast exam in 07/2020. Patient is postmenopausal. Family history of breast cancer at age 50 or over in paternal aunt, endometrial cancer in paternal grandmother. Took estrogen for 1 year. Patient states no breast complaints today. Patient has signed MRS History Sheet. Digital Woman Screen Mammo: July 21, 2020 - Exam #: [id number] Bilateral CC and MLO view(s) were taken. Technologist: Yue Rosenberg, Technologist Prior study comparison: July 03, 2017, digital woman screen mammo performed at [facility]. February 16, 2016, digital woman screen mammo performed at [facility]. FINDINGS: The breast tissue is heterogeneously dense. This may lower the sensitivity of mammography. Screening. Digital screening (2D) mammography was performed bilaterally in the CC and MLO projections. Additionally, breast tomosynthesis (3D mammography) was performed bilaterally in the CC and MLO projections. Todays exam was compared to the prior exams(s). By history, the patient has no complaints of a palpable breast abnormality or other significant breast complaints. The breasts are unchanged in size and shape. There are no radhika-soft tissue densities or spiculated masses. There is no internal architectural distortion. There are no suspicious radhika-calcific clusters. Skin thickening or nipple retraction is not present. IMPRESSION: BI-RADS Category 2- Benign Findings(s). There is no evidence of malignant alteration of the breasts. Followup examination recommended in one year. This mammogram was read with the assistance of [facility],an FDA approved computer aided detection system for mammography. The Volpara volumetric breast density category is B, there are scattered areas of fibroglandular density. Negative x-ray reports should not delay surgical consultation if a dominant or clinically suspicious mass is present. The lifetime Tyrer-Cuzick score is 8.3% Not all breast cancers can be identified by mammography. Therefore, we recommend that you continue to perform regular breast self-examination and physical examination and then promptly contact your physician of any concerns or changes. Adenosis and dense breasts may obscure an underlying neoplasm. Assessment: BI-RADS/ACR category 2 mammogram. Benign Findings. Recommendation Routine screening mammogram of both breasts in 1 year. Electronically Signed By: Andrwe Martinez, 07/21/20 [id number]
--- NOTE | 2020-07-21 16:23 | DEXAMM ---
INDICATION: Z13.820 SCREENING FOR OSTEOPOROSIS. COMPARISON: None. TECHNIQUE: Bone density was measured using dual-energy x-ray absorptionmetry (DEXA). FINDINGS: AP SPINE L1-L4 BMD 1.256 g/cm2 Young Adult T-Score 0.5 Age Matched Z-Score 2.0. LT FEMUR, TOTAL BMD 1.072 g/cm2 Young Adult T-Score 0.5 Age Matched Z-Score 1.6. LT NECK BMD 0.963 g/cm2 Young Adult T-Score -0.5 Age Matched Z-Score 0.9. RT FEMUR, TOTAL BMD 1.042 g/cm2 Young Adult T-Score 0.3 Age Matched Z-Score 1.4. RT NECK BMD 0.927 g/cm2 Young Adult T-Score -0.8 Age Matched Z-Score 0.6. IMPRESSION: There is normal bone density of the spine. There is normal bone density of the left hip. There is normal bone density of the right hip. FOLLOW-UP: Recommendation for the next bone density exam: 5 years. <Electronically signed by Moses Triplett > 07/21/20 [id number]
== END ==
LOC: M WHC 14:08
PROVIDERS: ATTEND Student in an Organized Health Care Education/Training Program
DX: Z12.31 Encounter for screening mammogram for malignant neoplasm of breast (principal); Z13.820 Encounter for screening for osteoporosis; Z78.0 Asymptomatic menopausal state; Z92.23 Personal history of estrogen therapy

== ENCOUNTER → 2020-07-24 | Outpatient (CLI) | payer OTHER | LOC: M LABSMTC 09:26 | PROVIDERS: ATTEND Anesthesiology | DX: Z01.812 Encounter for preprocedural laboratory examination (principal); Z11.52 Encounter for screening for COVID-19 ==

== ENCOUNTER → 2020-07-26 | Outpatient (REF) | payer OTHER ==
[2020-07-26 13:25] LABS: BLOOD UREA NITROGEN 10 MG/DL (7-18); CALCIUM LEVEL 9.7 MG/DL (8.8-10.2); CARBON DIOXIDE LEVEL 29 MEQ/L (21-32); CHLORIDE LEVEL 104 MEQ/L (98-107); CREATININE FOR GFR 0.67 MG/DL (0.55-1.30); GLOMERULAR FILTRATION RATE > 60.0 (>45); GLUCOSE, FASTING 105 MG/DL (70-100); POTASSIUM SERUM 4.4 MEQ/L (3.5-5.1); SODIUM LEVEL 138 MEQ/L (136-145)
[2020-07-26 13:30] LABS: CREATININE, URINE 76.1 MG/DL; MALB URINE SIEMENS < 5.0 MG/L; MAU/CREAT RATIO 6.5 MCG/MG (0.0-30.0)
[2020-07-26 13:48] LABS: HEMOGLOBIN A1c 6.1 %
== END ==
LOC: M SFHCPLAZ 10:06
PROVIDERS: ATTEND Family Medicine
DX: E11.9 Type 2 diabetes mellitus without complications (principal)

== ENCOUNTER → 2020-08-08 | Outpatient (CLI) | payer OTHER ==
--- NOTE | 2020-08-09 14:43 | SLEEPCENT ---
NOCTURNAL POLYSOMNOGRAPHY DATE: 08/08/2020 ORDERED BY: CESARIO Rivera Nocturnal polysomnography was performed for evaluation of sleep physiology in this patient with a history of excessive somnolence and nonrestorative sleep. Prior home testing suggesting the presence of sleep apnea as well. 7 hours and 19 minutes of data were reviewed. There were 301.5 minutes of sleep identified. Sleep latency was prolonged at 87.5 minutes. REM latency was prolonged at 180 minutes. Sleep architecture showed fragmentation. There were only two brief REM cycles noted. Overall sleep efficiency was 69.5%. The electrocardiogram showed a sinus bradycardia with an average heart rate of 44 beats per minute. EEG showed normal waveforms for wake and sleep. There were 81 respiratory events identified of 10 seconds in duration or greater for an apnea-hypopnea index of 16.1. The events were primarily obstructive, not exclusive to sleep stage nor body posture. Arousals from respiratory events occurred 4.8 times per hour. There was significant limb activity noted in the EMG leads, three to four trains of events, and limb movement arousal index was 11.5. IMPRESSION: 1. Obstructive sleep apnea syndrome (G47.33), apnea-hypopnea index 16. 2. Periodic limb movement disorder (G47.61), limb movement arousal index 11.5. RECOMMENDATION: The patient should be encouraged to return to [facility] for [facility]. In the interim, alcohol and sedative avoidance should be practiced and caution exercised during the operation of motor vehicles. Pending response to pressure therapy interventions to reduce the frequency of arousal from limb activity may also be helpful.
== END ==
LOC: M SLEEP 20:00
PROVIDERS: ATTEND Nurse Practitioner Family
DX: G47.33 Obstructive sleep apnea (adult) (pediatric) (principal); G47.61 Periodic limb movement disorder

== ENCOUNTER → 2020-08-21 | Outpatient (CLI) | payer OTHER | LOC: M LABSMTC 09:05 | PROVIDERS: ATTEND Anesthesiology | DX: Z01.812 Encounter for preprocedural laboratory examination (principal); Z11.52 Encounter for screening for COVID-19 ==

== ENCOUNTER 2020-08-26 08:21 | Day surgery (SDC) | payer OTHER ==
[~2020-08-26] VITALS: Ht 170.2 cm; Wt 83.5 kg
[~2020-08-26 08:21] MED LIST changes: +LR 1,000 ML IV ONE; +TRUL0.5I SC; -TRUL0.5I SQ; +dexameTHASONE 4 MG/ML 1ML VIAL (J1100 PER 1MG) IV ONE
[2020-08-26] MEDS ORDERED: MIDAZOLAM INJ 2MG/2ML VIAL (J2250 PER 1MG) As Ordered ONE (11:07)
[2020-08-26] MEDS ORDERED: fentaNYL 250 MCG/5 ML INJECTION (J3010) As Ordered ONE (11:07)
[2020-08-26] MEDS ORDERED: LIDOCAINE 2% 100MG/5ML SDV (FOR ANES.) As Ordered ONE (11:08)
[2020-08-26] MEDS ORDERED: propofoL 200 MG/20 ML VIAL As Ordered ONE (11:08)
[2020-08-26] MEDS ORDERED: dexameTHASONE 4 MG/ML 1ML VIAL (J1100 PER 1MG) As Ordered ONE (11:08)
[2020-08-26] MEDS ORDERED: ROCURONIUM BROMIDE 50 MG/5 ML VIAL As Ordered ONE (11:08)
[2020-08-26] MEDS ORDERED: ONDANSETRON 4MG/2ML VIAL As Ordered ONE (11:08)
[2020-08-26] MEDS ORDERED: METHYLENE BLUE 0.5% (5MG/ML) 10 ML AMP (PROVAYBLUE) As Ordered ONE (12:02)
[2020-08-26] MEDS ORDERED: LIDOCAINE W/EPINEPHRINE 1% 20ML VIAL As Ordered ONE (12:02)
[2020-08-26] MEDS ORDERED: EPINEPHrine 1MG/ML INJ 30ML MD-VIAL As Ordered ONE (12:03)
[2020-08-26] MEDS ORDERED: SUGAMMADEX SODIUM 500 MG/5 ML VIAL (BRIDION) As Ordered ONE (12:53)
[2020-08-26] MEDS ORDERED: SODIUM CHLORIDE 0.9% NASAL GEL 15GM (AYR) As Ordered ONE (13:07)
[2020-08-26] MEDS ORDERED: ONDANSETRON 4MG/2ML VIAL IV PRN ×2 (13:30→13:40)
[2020-08-26] MEDS ORDERED: fentaNYL 100 MCG/2 ML INJECTION (J3010) IV PRN (13:30)
[2020-08-26] MEDS ORDERED: HYDROMORPHONE HCL 0.5 MG/ 0.5 ML SYRINGE (J1170 PER 1) IV PRN (13:30)
[2020-08-26] MEDS ORDERED: LR 1,000 ML IV SCH ×3 (13:30→14:45)
[2020-08-26] MEDS ORDERED: METOCLOPRAMIDE INJ 10MG/2ML VIAL (J2765 PER 1) IV PRN (13:30)
[2020-08-26] MEDS ORDERED: PERCOCET 5MG/325MG TAB PO PRN ×2 (13:30→16:20)
[2020-08-26] MEDS ORDERED: ACETAMINOPHEN TAB 650MG DOSE (2X325MG) PO PRN (13:35)
[2020-08-26] MEDS ORDERED: GLUCAGON INJ 1MG VIAL SC PRN (13:35)
[2020-08-26] MEDS ORDERED: GLUCOSE 4GM CHEW TABLET PO PRN (13:35)
[2020-08-26] MEDS ORDERED: DEXTROSE 50% 50 ML SYRINGE IV PRN (13:35)
[2020-08-26] MEDS ORDERED: MORPHINE 4 MG/ML 1ML VIAL/SYRINGE (J2270) IV PRN ×2 (13:40→16:20)
[2020-08-26 14:29] VITALS: BP 145/75
[2020-08-26] MEDS ORDERED: clonazePAM 0.5 MG TAB PO PRN (15:00)
[2020-08-26 15:09] VITALS: BP 163/80
[2020-08-26] MEDS: SODIUM CHLORIDE NASAL 0.65% SPRAY BTL (OCEAN) SCH ×2 (15:53→21:40)
[2020-08-26 16:12] VITALS: BP 134/74
--- NOTE | 2020-08-26 16:23 | HPEPDOC ---
[facility] Medical History & Physical Date of Admission Aug 26, 2020 Date of Service: Aug 26, 2020 Attending Physician: NIDHI DOMINGUEZ MD History and Physical CHIEF COMPLAINT: Post septoplasty observation HISTORY OF PRESENT ILLNESS: 65 yo W with a history of DM, HTN, HLD, depression, remote history of PSUD and [place] who had an elective septoplasty by ENT today and is being admitted to medicine for observation post-op. She reports a history of chronic nasal congestion with a history of a traumatic fall and breaking her nose >10y ago that may have been the event that led up to a deviated septum. Her pre-op optimization was done by her PCP in the outpatient setting without any complications. On arrival to the floor, she reports 8/10 pain around her nose. Bleeding has stopped with some now drying bloody gauze and bandaid around her nose. She otherwise is now on room air and speaking in fulll sentences. She denies any headache, vision changes, recent fever, chills, chest pain. Past Medical History HX DUB HX PMB 2009, 2012 HX ALCOHOL AND DRUG ABUSE, TREATED [facility] 2008 AND [facility] 2010 INTERSTITIAL CYSTITIS/OAB FRACTURED SHOULDER WITH FALL 2012 DEPRESSION/ANXIETY MAJOR DEPRESSIVE EPISODE 2009 , [facility] [place], SUICIDAL IDEATIONS HTN HX HSV II SHINGLES 2006 TIAS AGE 33 PNEUMONIA 2009 11 YEAR ASCVD RISK 2.0% - 07/09/2014 DIABETES MELLITUS, TYPE II, NON-INSULIN DEPEDENT Surgical History ENDOMETRIAL BIOSPY 2006, 2009 TUBAL LIGATION 2000 TONSILLECTOMY CHILD ADENOIDECTOMY CHILD HYSTEROSCOPY, D&C 2009 COLONOSCOPY (DR. GEORGE) 2010 Family History FATHER: 84 YRS, ALZHEIMER MOTHER: 83 YRS, RESTLESS LEG SYNDROME, MULTIPLE FX, OSTEOPOROSIS, HTN HEART DISEASE ALLERGIES: iodine, shellfish derived. REVIEW OF SYSTEMS: 10 point ROS was negative except the pain noted in the HPI. HOME MEDICATIONS: Please see below. PHYSICAL EXAMINATION: VITAL SIGNS: see below GENERAL APPEARANCE: NAD, speaking in full sentences HEENT: NCAT, with bandaid with small gauze with drying blood at nasal entrance, EOMI, MMM CARDIOVASCULAR: RRR, no m/r/g LUNGS: CTAB ABDOMEN: Obese, soft, NTND EXTREMITIES: WWP, no LE edema NEUROLOGICAL: CN 3-12 intact, moving all extremities, grossly nonfocal examination PSYCHIATRIC: AOx3 LABORATORY DATA: See below. MICROBIOLOGY: Please see below. ASSESSMENT: 65 yo W with a history of DM, HTN, HLD, depression, remote history of PSUD and [place] who had an elective septoplasty by ENT today and is being admitted to medicine for observation post-op. Deviated septum s/p septoplasty: -Tylenol 650mg q6HP for mild pain -Percocet 1 tab Q4HP for moderate pain -Percocet 2tabs Q6HP for severe pain -morphine 4mg Q8HP for severe breakthrough pain DM: -hold PO antihyperglycemics -SSI AC/HS -FSBG AC/HS -hypoglycemia protocol -consistent carb diet [place]O: -recently not on CPAP as she could not tolerate it -may require supplemental O2 overnight HTN: -cont home meds HLD -cont home meds Depression, anxiety -continue home meds DVT ppx: ESTEFANY and sequentials Vital Signs Vital Signs Date Time Temp Pulse Resp B/P (MAP) Pulse Ox O2 Delivery O2 Flow Rate FiO2 08/26/20 15:53 20 08/26/20 14:29 97.6 59 145/75 (98) 92 Room Air 08/26/20 13:55 2.0 Laboratory Data Labs 24H Laboratory Tests 2 08/26/20 09:00: Bedside Glucose (Misc Panel) 113 Home Medications Scheduled Ascorbic Acid (Vitamin C) 500 Mg Tablet, 1,000 MG PO DAILY Aspirin (Aspirin EC) 81 Mg Tablet.dr, 81 MG PO DAILY Atorvastatin Calcium (Atorvastatin Calcium) 20 Mg Tablet, 20 MG PO DAILY Dulaglutide (Trulicity) 1.5 Mg/0.5 Ml Pen.injctr, 1.5 MG SQ QWEEK Fish Oil/Dha/Epa (Fish Oil 1,200 mg Fish Oil) 1 Each Capsule, 1 CAP PO DAILY Fluoxetine HCl (Prozac) 40 Mg Capsule, 40 MG PO DAILY Lisinopril (Lisinopril) 10 Mg Tablet, 10 MG PO DAILY Sennosides (Senna) 8.6 Mg Tablet, 1 TAB PO DAILY Scheduled PRN Clonazepam (Clonazepam) 0.5 Mg Tablet, 0.5 MG PO TIDP PRN for ANXIETY Trazodone HCl (Trazodone HCl) 50 Mg Tab, 50 MG PO QHS PRN for SLEEP Zolpidem Tartrate (Zolpidem Tartrate) 10 Mg Tablet, 10 MG PO QHSP PRN for INSOMNIA Allergies Coded Allergies: iodine (Verified Allergy, Severe, anaphylaxis, 08/19/20) shellfish derived (Verified Allergy, Severe, anaphylaxis, 08/19/20) A-FIB/CHADSVASC A-FIB History Current/History of A-Fib/PAF?: No Current PO Anticoag Therapy: No Age/Risk Factor Scoring CHADSVASC: CHADSVASC Response (Comments) Value Age Risk Factor Age < 65 years old 0 Gender Risk Factor Female 1 Hx of CHF No 0 Hx of HTN Yes 1 Hx of Stroke/TIA/or VTE No 0 Hx of Diabetes Yes 1 Hx of Vascular Disease No 0 Total 3 Treatment Treatment ordered: NONE Reason Anticoagulant not given: Not indicated/[id number] NIDHI DOMINGUEZ MD Aug 26, 2020 16:23
[2020-08-26 17:16] VITALS: BP 137/77
[2020-08-26] MEDS: HumaLOG INSULIN (NovoLOG) PER UNIT SC SCH (18:02)
[2020-08-26 18:21] VITALS: BP 142/75
[2020-08-26] MEDS ORDERED: AUGMENTIN 875 MG TAB PO SCH (21:00)
[2020-08-26] MEDS ORDERED: HumaLOG INSULIN (NovoLOG) PER UNIT SC SCH (21:00)
[2020-08-26] MEDS ORDERED: traZODone 50 MG TAB PO PRN (21:00)
[2020-08-26] MEDS: PERCOCET 5MG/325MG TAB PO PRN (21:39)
[2020-08-26] MEDS: AUGMENTIN 875 MG TAB PO SCH (21:39)
[2020-08-26 22:00] VITALS: BP 134/66
[2020-08-27] MEDS ORDERED: zolPIDEM TARTRATE 5 MG TAB PO PRN (03:10)
[2020-08-27 06:00] VITALS: BP 124/56
[2020-08-27 06:23] LABS: HEMOGLOBIN 13.9 g/dl (12.0-15.5); MEAN CORPUSCULAR HEMOGLOBIN 30.5 pg (27.0-33.0); MEAN CORPUSCULAR HGB CONC 33.1 g/dl (32.0-36.5); MEAN CORPUSCULAR VOLUME 92.1 fl (80.0-96.0); PLATELET COUNT, AUTOMATED 208 10^3/uL (150-450); RED BLOOD COUNT 4.56 10^6/uL (4.00-5.40)
[2020-08-27 06:55] LABS: BLOOD UREA NITROGEN 15 MG/DL (7-18); CALCIUM LEVEL 9.1 MG/DL (8.8-10.2); CARBON DIOXIDE LEVEL 28 MEQ/L (21-32); CHLORIDE LEVEL 103 MEQ/L (98-107); CREATININE FOR GFR 0.69 MG/DL (0.55-1.30); GLOMERULAR FILTRATION RATE > 60.0 (>45); GLUCOSE, FASTING 136 MG/DL (70-100); POTASSIUM SERUM 4.3 MEQ/L (3.5-5.1); SODIUM LEVEL 138 MEQ/L (136-145)
--- NOTE | 2020-08-27 08:05 | DS.PDOC ---
Discharge Summary General Date of Admission 08/26/2020 Date of Discharge 08/27/2020 Attending Physician: NIDHI DOMINGUEZ MD Discharge Summary PROCEDURES PERFORMED DURING STAY: None ADMITTING DIAGNOSES: Deviated nasal septum DISCHARGE DIAGNOSES: Deviated nasal septum s/p septoplasty [place] DM Depression HTN HLD COMPLICATIONS/CHIEF COMPLAINT: Deviated Nasal Septum. HISTORY OF PRESENT ILLNESS: 65 yo W with a history of DM, HTN, HLD, depression, remote history of PSUD and [place] who had an elective septoplasty by ENT and admitted to medicine for observation post-op. She reported a history of chronic nasal congestion with a history of a traumatic fall and breaking her nose >10y ago that may have been the event that led up to a deviated septum. Her pre-op optimization was done by her PCP in the outpatient setting without any complications. HOSPITAL COURSE: On arrival to the floor, she reports 8/10 pain around her nose. She otherwise was on room air and speaking in full sentences. She denied any headaches, vision changes, recent fever, chills, chest pain. Her overnight observational stay was unremarkable and pain was well controlled with Percocet. She is now being d ischarged home with 10d of augmentin prescribed already by ENT and he recommended saline nasal spray TID and PRN and is to follow up with ENT within 1 week for stent removal and nasal cavity debridement. DISCHARGE MEDICATIONS: Please see below. ALLERGIES: Please see below. PHYSICAL EXAMINATION ON DISCHARGE: VITAL SIGNS: Please see below. GENERAL APPEARANCE: NAD, speaking in full sentences HEENT: NCAT, with bandaid with small gauze with no active bleeding, EOMI, MMM CARDIOVASCULAR: RRR, no m/r/g LUNGS: CTAB ABDOMEN: Obese, soft, NTND EXTREMITIES: WWP, no LE edema NEUROLOGICAL: CN 3-12 intact, moving all extremities, grossly nonfocal examination PSYCHIATRIC: AOx3 LABORATORY DATA: Please see below. IMAGING: none PROGNOSIS: Good ACTIVITY: As tolerated DIET: consistent carb DISCHARGE PLAN: Home with 10d of augmentin already sent to the pharmacy by ENT and close ENT follow up DISPOSITION: Home DISCHARGE INSTRUCTIONS: Home with 10d of augmentin already sent to the pharmacy by ENT and close ENT follow up ITEMS TO FOLLOWUP ON ON OUTPATIENT: s/p septoplasty to follow up with ENT Pulmonology with ongoing [place] evaluation pending CPAP fitting DISCHARGE CONDITION: Stable TIME SPENT ON DISCHARGE: 34 minutes. Vital Signs/I&Os Vital Signs Date Time Temp Pulse Resp B/P (MAP) Pulse Ox O2 Delivery O2 Flow Rate FiO2 08/27/20 06:00 97.4 52 19 124/56 (78) 94 Room Air 08/26/20 13:55 2.0 I&O- Last 24 Hours up to 6 AM 08/27/20 06:00 Intake Total 1650 ml Output Total 5 ml Balance 1645 ml Laboratory Data Labs 24H Laboratory Tests 2 08/26/20 09:00: Bedside Glucose (Misc Panel) 113 08/26/20 17:14: Bedside Glucose (Misc Panel) 162H 08/26/20 21:46: Bedside Glucose (Misc Panel) 205H 08/27/20 05:54: Nucleated Red Blood Cells % (auto) 0.0, Anion Gap 7L, Glomerular Filtration Rate > 60.0, Calcium Level 9.1 CBC/BMP Laboratory Tests 08/27/20 05:54 FSBS Laboratory Tests Test 08/26/20 09:00 08/26/20 17:14 08/26/20 21:46 Range/Units Bedside Glucose (Misc Panel) 113 162 205 80-115 MG/DL Discharge Medications Scheduled Ascorbic Acid (Vitamin C) 500 Mg Tablet, 1,000 MG PO DAILY, (Reported) Aspirin (Aspirin EC) 81 Mg Tablet.dr, 81 MG PO DAILY, (Reported) Atorvastatin Calcium (Atorvastatin Calcium) 20 Mg Tablet, 20 MG PO DAILY, (Reported) Dulaglutide (Trulicity) 1.5 Mg/0.5 Ml Pen.injctr, 1.5 MG SQ QWEEK, (Reported) Fish Oil/Dha/Epa (Fish Oil 1,200 mg Fish Oil) 1 Each Capsule, 1 CAP PO DAILY, (Reported) Fluoxetine HCl (Prozac) 40 Mg Capsule, 40 MG PO DAILY, (Reported) Lisinopril (Lisinopril) 10 Mg Tablet, 10 MG PO DAILY, (Reported) Sennosides (Senna) 8.6 Mg Tablet, 1 TAB PO DAILY, (Reported) Scheduled PRN Clonazepam (Clonazepam) 0.5 Mg Tablet, 0.5 MG PO TIDP PRN for ANXIETY, (Reported) Trazodone HCl (Trazodone HCl) 50 Mg Tab, 50 MG PO QHS PRN for SLEEP, (Reported) Zolpidem Tartrate (Zolpidem Tartrate) 10 Mg Tablet, 10 MG PO QHSP PRN for INSOMNIA, (Reported) Allergies Coded Allergies: iodine (Verified Allergy, Severe, anaphylaxis, 08/19/20) shellfish derived (Verified Allergy, Severe, anaphylaxis, 08/19/20) NIDHI DOMINGUEZ MD Aug 27, 2020 08:05
[2020-08-27] MEDS ORDERED: HM S0.65 NARES (08:11)
[2020-08-27] MEDS ORDERED: PERCOCET PO (08:11)
[2020-08-27] MEDS ORDERED: DIFL150T PO (08:13)
[2020-08-27] MEDS: SODIUM CHLORIDE NASAL 0.65% SPRAY BTL (OCEAN) SCH (08:45)
[2020-08-27] MEDS: PERCOCET 5MG/325MG TAB PO PRN (08:46)
[2020-08-27] MEDS: AUGMENTIN 875 MG TAB PO SCH (08:47)
[2020-08-27 08:49] VITALS: BP 117/64
[2020-08-27] MEDS: HumaLOG INSULIN (NovoLOG) PER UNIT SC SCH (08:50)
[2020-08-27] MEDS ORDERED: SENNA 8.6 MG TAB (SENOKOT) PO SCH (09:00)
[2020-08-27] MEDS ORDERED: ASCORBIC ACID 500 MG TAB PO SCH (09:00)
[2020-08-27] MEDS ORDERED: ATORVASTATIN 20 MG TAB PO SCH (09:00)
[2020-08-27] MEDS ORDERED: FLUoxetine 20 MG CAP PO SCH (09:00)
[2020-08-27] MEDS ORDERED: ASPIRIN 81MG ENTERIC TABLET PO SCH (09:00)
--- NOTE | 2020-09-07 11:06 | RO ---
OPERATIVE NOTE DATE OF OPERATION: 08/26/2020 PREOPERATIVE DIAGNOSIS: Deviated nasal septum. POSTOPERATIVE DIAGNOSIS: Deviated nasal septum. PROCEDURE PERFORMED: Septoplasty. SURGEON: Ramy Franklin MD. CNC OPERATOR PROGRAMMER: ANESTHESIA: General. CLINICAL PREAMBLE: This 65-year-old woman presented to the office complaining of chronic nasal congestion, worse on the left side. She has had a history of nasal trauma eight years ago. Physical examination confirmed presence of a deviated nasal septum with a bony spur impinging on the left inferior nasal turbinate. Management options including septoplasty have been discussed with the patient. She understood and consented to the procedure. OR NARRATION: Patient was identified in preholding and brought to the operating room in stable condition. In the supine position on the operating table, patient received general anesthesia followed by orotracheal intubation without incident. Patient was prepped and draped in the usual fashion for the procedure. The nasal L-strut was palpated and found to be intact. Both sides of the nasal cavity were then packed using pledgets soaked in 1:1000 epinephrine. After a waiting period, the pledgets were removed. The nasal septum was then infiltrated with 1% lidocaine with 1:100,000 epinephrine. The left hemitransfixion incision was made. The mucoperichondrial and mucoperiosteal flap was developed on the left side of the nasal septum. The bony cartilaginous junction was identified and then disarticulated. The deviated portion of the vomer bone and the perpendicular plate was then isolated and resected using the cutting Farlington-Cespedes forceps. The deviated portion of the nasal septum was isolated and resected as well. The maxillary crest was then also isolated and resected as well. At this time, the nasal septum had returned to a more midline position. The left hemitransfixion incision was closed using chromic suture. The Hood splints were inserted into each side of the nasal cavity and then secured anteriorly using the 3-0 nylon suture. At the end of the procedure, sponge and instrument counts were correct. No complication was encountered. Estimated blood loss was approximately 20 mL. General anesthesia was reversed, and patient was extubated and brought to the recovery room in stable condition.
== END 2020-08-27 11:24 | disposition home or self-care (01) ==
LOC: M SDC 08:21 → M ED INP 13:39 → M MS5PR 14:20 → M SDC 08-27 11:24
PROVIDERS: ADMIT Internal Medicine; ATTEND Otolaryngology
DX: J34.2 Deviated nasal septum (principal); J34.89 Other specified disorders of nose and nasal sinuses; G47.33 Obstructive sleep apnea (adult) (pediatric); E11.9 Type 2 diabetes mellitus without complications; I10 Essential (primary) hypertension; E78.5 Hyperlipidemia, unspecified; F32.9 Major depressive disorder, single episode, unspecified; Z87.440 Personal history of urinary (tract) infections; R94.31 Abnormal electrocardiogram [ECG] [EKG]; M19.90 Unspecified osteoarthritis, unspecified site; Z86.73 Personal history of transient ischemic attack (TIA), and cerebral infarction without residual deficits; Z91.5 Personal history of self-harm; J45.909 Unspecified asthma, uncomplicated; E66.9 Obesity, unspecified; Z68.30 Body mass index [BMI] 30.0-30.9, adult; Z87.898 Personal history of other specified conditions; Z79.899 Other long term (current) drug therapy; Z79.82 Long term (current) use of aspirin; Z79.84 Long term (current) use of oral hypoglycemic drugs; Z88.8 Allergy status to other drugs, medicaments and biological substances; Z91.013 Allergy to seafood
CPT/HCPCS: 30520; 36415; 80048; 85027; 88300; 96374; J1100; J2250; J2270; J2405; J3010; Q9968

== ENCOUNTER 2020-09-05 20:12 | Emergency (ER) | payer OTHER ==
[~2020-09-05] VITALS: Ht 167.6 cm; Wt 82.7 kg
[~2020-09-05 20:12] MED LIST changes: +DIFL150T PO; +HM S0.65 NARES; -LR 1,000 ML IV ONE; +PERCOCET PO; -TRUL0.5I SC; +TRUL0.5I SQ; -dexameTHASONE 4 MG/ML 1ML VIAL (J1100 PER 1MG) IV ONE
[2020-09-05 21:33] LABS: BASO % 0.5 % (0.0-1.0); EOS # 0.2 10^3/uL (0.0-0.5); EOS % 1.8 % (0.0-3.0); HEMATOCRIT 44.2 % (36.0-47.0); HEMOGLOBIN 14.5 g/dl (12.0-15.5); LYMPH # 3.2 10^3/uL (1.5-5.0); MEAN CORPUSCULAR HEMOGLOBIN 30.3 pg (27.0-33.0); MEAN CORPUSCULAR HGB CONC 32.8 g/dl (32.0-36.5); MEAN CORPUSCULAR VOLUME 92.3 fl (80.0-96.0); MONO # 0.7 10^3/uL (0.0-0.8); MONO % 8.1 % (2.0-8.0); NEUTROPHILS # 4.7 10^3/uL (1.5-8.5); NEUTROPHILS % 53.1 % (36.0-66.0); PLATELET COUNT, AUTOMATED 293 10^3/uL (150-450); RED BLOOD COUNT 4.79 10^6/uL (4.00-5.40); WHITE BLOOD COUNT 8.8 10^3/uL (4.0-10.0)
[2020-09-05] MEDS ORDERED: NS 1,000 ML IV SCH (22:00)
[2020-09-05 22:02] LABS: AMPHETAMINES LEVEL URINE NEGATIVE (NEGATIVE); BARBITURATES URINE NEGATIVE (NEGATIVE); BENZODIAZEPINES URINE NEGATIVE (NEGATIVE); CANNABINOIDS URINE NEGATIVE (NEGATIVE); COCAINE METABOLITE URINE NEGATIVE (NEGATIVE); METHADONE URINE NEGATIVE (NEGATIVE); OPIATES URINE NEGATIVE (NEGATIVE); PHENCYCLIDINE URINE NEGATIVE (NEGATIVE)
[2020-09-05 22:10] LABS: ALBUMIN 4.1 GM/DL (3.2-5.2); ALT/SGPT 58 U/L (12-78); BILIRUBIN,DIRECT 0.3 MG/DL (0.0-0.2); BILIRUBIN,TOTAL 0.8 MG/DL (0.2-1.0); BLOOD UREA NITROGEN 12 MG/DL (7-18); CALCIUM LEVEL 9.7 MG/DL (8.8-10.2); CARBON DIOXIDE LEVEL 28 MEQ/L (21-32); CHLORIDE LEVEL 102 MEQ/L (98-107); CK-MB VALUE MASS 1.6 NG/ML (<3.6); CPK CREATINE PHOSPHOKINASE 104 U/L (26-192); CREATININE FOR GFR 0.79 MG/DL (0.55-1.30); GLOMERULAR FILTRATION RATE > 60.0 (>45); GLUCOSE, FASTING 159 MG/DL (70-100); MB/CK RELATIVE INDEX 1.54 (< OR =4); SALICYLATE LEVEL < 1.7 MG/DL (5.0-30.0); SODIUM LEVEL 138 MEQ/L (136-145); TOTAL PROTEIN 7.7 GM/DL (6.4-8.2); TROPONIN I 0.96 NG/ML (< 0.10)
[2020-09-05] MEDS ORDERED: THIAMINE 100 MG TAB PO ONE (22:10)
[2020-09-05 22:11] LABS: ACETAMINOPHEN LEVEL < 2.0 UG/ML (10.0-30.0); ETHYL ALCOHOL (ETHANOL) < 0.003 % (0.000-0.010)
--- NOTE | 2020-09-05 23:06 | REPVR ---
PROCEDURE INFORMATION: Exam: CT Head Without Contrast Exam date and time: 09/05/2020 9:40 PM Age: 65 years old Clinical indication: Altered mental status/memory loss TECHNIQUE: Imaging protocol: Computed tomography of the head without contrast. Radiation optimization: All CT scans at this facility use at least one of these dose optimization techniques: automated exposure control; mA and/or kV adjustment per patient size (includes targeted exams where dose is matched to clinical indication); or iterative reconstruction. COMPARISON: CT Head without contrast 11/15/2017 12:59 PM FINDINGS: Brain: Normal. No hemorrhage. Unremarkable white matter. No mass effect. There are upper normal sulci. Cerebral ventricles: No ventriculomegaly. Paranasal sinuses: Visualized sinuses are unremarkable. No fluid levels. Mastoid air cells: Visualized mastoid air cells are well aerated. Bones/joints: Unremarkable. No acute fracture. Soft tissues: Unremarkable. IMPRESSION: Negative noncontrast head CT without change from 11/15/2017. Electronically signed by: Subhash Whitehead On 09/05/2020 23:05:59 PM
--- NOTE | 2020-09-05 23:07 | REPVR ---
PROCEDURE INFORMATION: Exam: XR Chest Exam date and time: 09/05/2020 9:54 PM Age: 65 years old Clinical indication: Other: AMS; Additional info: Altered mental status TECHNIQUE: Imaging protocol: XR of the chest. Views: 2 views. COMPARISON: CR Chest, 1 view 09/14/2015 2:37 PM FINDINGS: Lungs: There are no interval infiltrates. Pleural spaces: Unremarkable. No pleural effusion. No pneumothorax. Heart/Mediastinum: The heart and mediastinum are unchanged. Bones/joints: Degenerative spurring is noted in the left humeral head with question of residua of old fracture. Wedge compression of T12 which is likely chronic. Soft tissues: There are moderately generous overlying soft tissues. IMPRESSION: Stable essentially negative chest since 09/14/2015. Electronically signed by: Subhash Whitehead On 09/05/2020 23:07:12 PM
[2020-09-05] MEDS ORDERED: ASPIRIN 325 MG TAB PO ONE (23:40)
[2020-09-06 00:29] LABS: CK-MB VALUE MASS 4.5 NG/ML (<3.6); MB/CK RELATIVE INDEX 3.52 (< OR =4); TROPONIN I 1.79 NG/ML (< 0.10)
[2020-09-06] MEDS ORDERED: LORazepam 2 MG/ML VIAL IV STA (00:54)
[2020-09-06 01:30] LABS: RSV AMPLIFICATION NEGATIVE (NEGATIVE)
[2020-09-06] MEDS ORDERED: NITROGLYCERIN 2% OINT 1 GM *U/D* PKT TOP ONE (01:30)
[2020-09-06] MEDS ORDERED: HEPARIN SOD (PORCINE) 5000UNITS/ML 1ML VIAL/SYRINGE IV ONE (01:30)
[2020-09-06] MEDS ORDERED: HEPARIN DRIP 25,000 UNITS in IV 1 EA IV SCH (01:35)
[2020-09-06 01:52] VITALS: BP 167/81
[2020-09-06 02:45] VITALS: BP 168/77
--- NOTE | 2020-09-06 15:19 | ECGEPIP ---
[facility] - ED Test Date: 2020-09-05 Pat Name: HEYDI SANTO Department: Room: - Gender: Female Ophthalmic Technologist: LESLY : 1955 Requested By: PAUL Croonel Order Number: [id number] Reading MD: Addison Gomes Measurements Intervals [place] Rate: 95 P: 43 MA: 244 QRS: -1 QRSD: 78 T: 255 QT: 332 QTc: 417 Interpretive Statements Sinus rhythm with 1st degree AV block ST & T wave abnormality, consider anterolateral ischemia Similar to tracing done 09-14-15 but with more artifact Electronically Signed on 09-06-2020 15:19:05 EDT by Addison Gomes
--- NOTE | 2020-09-06 15:23 | ECGEPIP ---
[facility] [place] - ED Test Date: 2020-09-05 Pat Name: HEYDI SANTO Department: Room: - Gender: Female Car Distributor: CHRISTOPHER HENRIQUEZ : 1955 Requested By: PAUL Coronel Order Number: [id number] Reading MD: Addison Gomes Measurements Intervals [place] Rate: 95 P: 70 MS: 230 QRS: -23 QRSD: 76 T: 269 QT: 370 QTc: 464 Interpretive Statements Sinus rhythm with 1st degree AV block ST & T wave abnormality, consider lateral ischemia Baseline artifact Similar to tracing done 20:50 on same date Electronically Signed on 09-06-2020 15:23:05 EDT by Addison Gomes
== END 2020-09-06 02:59 | disposition short-term general hospital (02) ==
LOC: M ED 20:12
DX: I21.4 Non-ST elevation (NSTEMI) myocardial infarction (principal); F19.10 Other psychoactive substance abuse, uncomplicated; G47.33 Obstructive sleep apnea (adult) (pediatric); E11.9 Type 2 diabetes mellitus without complications; Z79.82 Long term (current) use of aspirin; Z79.891 Long term (current) use of opiate analgesic; Z79.899 Other long term (current) drug therapy
CPT/HCPCS: 51701; 70450; 71046; 80048; 80076; 80143; 80307; 81001; 82077; 82140; 82550; 82553; 84443; 85025; 87631; 93005; 93041; 94760; 96361; 96365; 96375; 99285; J1644; J2060

== ENCOUNTER 2020-10-21 22:20 | Inpatient (IN) | payer OTHER ==
[~2020-10-21] VITALS: Ht 165.1 cm; Wt 79.1 kg
[~2020-10-21 22:20] MED LIST changes: +TRUL0.5I SC; -TRUL0.5I SQ
[2020-10-21 22:53] LABS: HEMATOCRIT 42.6 % (36.0-47.0); HEMOGLOBIN 14.3 g/dl (12.0-15.5); MEAN CORPUSCULAR HGB CONC 33.6 g/dl (32.0-36.5); MEAN CORPUSCULAR VOLUME 89.5 fl (80.0-96.0); PLATELET COUNT, AUTOMATED 246 10^3/uL (150-450); RED BLOOD COUNT 4.76 10^6/uL (4.00-5.40); WHITE BLOOD COUNT 7.1 10^3/uL (4.0-10.0)
[2020-10-21 23:14] LABS: BASO # 0.1 10^3/uL (0.0-0.2); BASO % 0.7 % (0.0-1.0); EOS # 0.1 10^3/uL (0.0-0.5); EOS % 0.9 % (0.0-3.0); LYMPH # 2.4 10^3/uL (1.5-5.0); LYMPH % 32.4 % (24.0-44.0); MONO # 0.5 10^3/uL (0.0-0.8); NEUTROPHILS # 4.4 10^3/uL (1.5-8.5); NEUTROPHILS % 58.7 % (36.0-66.0)
[2020-10-21 23:31] LABS: OSMOLALITY SERUM 284 MOSM/KG (280-301)
--- NOTE | 2020-10-21 23:34 | REPVR ---
PROCEDURE INFORMATION: Exam: CT Head Without Contrast Exam date and time: 10/21/2020 10:51 PM Age: 65 years old Clinical indication: Altered mental status/memory loss; Confusion or disorientation TECHNIQUE: Imaging protocol: Computed tomography of the head without contrast. Radiation optimization: All CT scans at this facility use at least one of these dose optimization techniques: automated exposure control; mA and/or kV adjustment per patient size (includes targeted exams where dose is matched to clinical indication); or iterative reconstruction. COMPARISON: CT Head without contrast 09/05/2020 9:30 PM FINDINGS: Brain: Age-related volume loss. No acute intracranial hemorrhage, midline shift or intracranial mass effect. Cerebral ventricles: No hydrocephalus. Paranasal sinuses: Visualized sinuses are unremarkable. No fluid levels. Mastoid air cells: Visualized mastoid air cells are well aerated. Bones/joints: Unremarkable. No acute fracture. Soft tissues: Unremarkable. IMPRESSION: No acute intracranial abnormality. Electronically signed by: Sergio Vu On 10/21/2020 23:33:41 PM
--- NOTE | 2020-10-21 23:35 | REPVR ---
PROCEDURE INFORMATION: Exam: XR Chest Exam date and time: 10/21/2020 11:04 PM Age: 65 years old Clinical indication: Other: Altered mental status TECHNIQUE: Imaging protocol: XR of the chest. Views: 1 view. COMPARISON: CR Chest, 2 view PA, Lat 09/05/2020 9:36 PM FINDINGS: Lungs: No consolidation. Pleural spaces: Unremarkable. No pleural effusion. No pneumothorax. Heart/Mediastinum: Stable cardiac silhouette. Bones/joints: Osteopenia. IMPRESSION: No acute process. Electronically signed by: Sergio Vu On 10/21/2020 23:34:41 PM
[2020-10-21 23:40] LABS: AMPHETAMINES LEVEL URINE NEGATIVE (NEGATIVE); BARBITURATES URINE NEGATIVE (NEGATIVE); BENZODIAZEPINES URINE NEGATIVE (NEGATIVE); CANNABINOIDS URINE NEGATIVE (NEGATIVE); COCAINE METABOLITE URINE NEGATIVE (NEGATIVE); METHADONE URINE NEGATIVE (NEGATIVE); OPIATES URINE NEGATIVE (NEGATIVE); PHENCYCLIDINE URINE NEGATIVE (NEGATIVE)
[2020-10-21 23:53] LABS: ACETAMINOPHEN LEVEL < 2.0 UG/ML (10.0-30.0); BLOOD UREA NITROGEN 7 MG/DL (7-18); CARBON DIOXIDE LEVEL 27 MEQ/L (21-32); CHLORIDE LEVEL 105 MEQ/L (98-107); CK-MB VALUE MASS < 1.0 NG/ML (<3.6); CPK CREATINE PHOSPHOKINASE 123 U/L (26-192); CREATININE FOR GFR 0.72 MG/DL (0.55-1.30); ETHYL ALCOHOL (ETHANOL) < 0.003 % (0.000-0.010); GLOMERULAR FILTRATION RATE > 60.0 (>45); GLUCOSE, FASTING 155 MG/DL (70-100); MB/CK RELATIVE INDEX 0.81 (< OR =4); SALICYLATE LEVEL < 1.7 MG/DL (5.0-30.0); SODIUM LEVEL 138 MEQ/L (136-145); TROPONIN I < 0.02 NG/ML (< 0.10)
[2020-10-22] VITALS (7 sets, daily range): BP systolic 106–150; BP diastolic 56–82
[2020-10-22] MEDS ORDERED: hydrALAZINE 20MG/ML 1ML VIAL (J0360 PER 20MG) IV ONE (00:30)
[2020-10-22] MEDS ORDERED: **hydrALAZINE HCL** 25 MG TAB PO ONE (01:05)
[2020-10-22] MEDS ORDERED: LORazepam 2 MG/ML VIAL IV STA (02:11)
[2020-10-22] MEDS ORDERED: MAALOX 30 ML SUSP *UDC PO PRN (02:15)
[2020-10-22] MEDS ORDERED: DEXTROSE 50% 50 ML SYRINGE IV PRN (02:15)
[2020-10-22] MEDS ORDERED: MOM 30ML SUSPENSION UDC PO PRN (02:15)
[2020-10-22] MEDS ORDERED: GLUCAGON INJ 1MG VIAL SC PRN (02:15)
[2020-10-22] MEDS ORDERED: GLUCOSE 4GM CHEW TABLET PO PRN (02:15)
[2020-10-22] MEDS ORDERED: LORazepam 2 MG TAB PO PRN (02:15)
[2020-10-22] MEDS ORDERED: SENN8.6T28 PO (02:17)
[2020-10-22] MEDS ORDERED: HM S0.65 (02:17)
[2020-10-22] MEDS ORDERED: PROAAER10 INH (02:17)
[2020-10-22] MEDS ORDERED: FISH1000 PO (02:17)
[2020-10-22] MEDS ORDERED: ATIV1TAB7 PO (02:17)
[2020-10-22] MEDS ORDERED: ZALE10CA PO (02:17)
[2020-10-22] MEDS ORDERED: FLUO20CA20 PO (02:18)
--- NOTE | 2020-10-22 02:18 | HPEPDOC ---
[facility] & Physical Date of Admission Oct 22, 2020 Date of Service: Oct 22, 2020 Attending Physician: PATRICIA VALENCIA MD History and Physical CHIEF COMPLAINT: [65 y/o presents with ams] HISTORY OF PRESENT ILLNESS: [This is a 65 y/o female with a pmh of cva, tia, migraines, hld, htn and dm2 who was brought to our ed on 10/21 by her son for evaluation of altered mental status. As of my seeing of the patient, the son has left and patient is not oriented and unable to provide me history due to her incoherence. History is obtained from ed staff and the chart. Apparently, patient is a former alcoholic and has been 8 years sober up until 2 days ago. Patient began drinking two days ago after an episode of family drama. It is unclear how much she was drinking or what she was drinking. Blood pressures in the ED shown to be very elevated with highest readings showing systolic >240 ] PAST MEDICAL HISTORY: 1. [See HPI PAST SURGICAL HISTORY: 1. [Tonsillectomy]. 2. [Cystoscopy x2]. SOCIAL HISTORY: Unable to obtain d/t mentation FAMILY HISTORY: Unable to obtain d/t mentation ALLERGIES: Please see below. REVIEW OF SYSTEMS: Unable to obtain d/t mentation HOME MEDICATIONS: Please see below. PHYSICAL EXAMINATION: VITAL SIGNS: Please see below. GENERAL APPEARANCE: [This is a disheveled appearing 65 y/o female. She is awake and answers questions with nonsensical answers. She appears anxious and diaphoretic but does not appear to be in distress]. HEENT: [No mass or lesion. EOMI. Pupils even. No scleral icterus. Nares patent. Oral mucosa very dry.]. CARDIOVASCULAR: [Tachy rate, regular rhythm. No murmurs, rubs, gallops]. LUNGS: [Good air flow b/l. No wheezing, rales, rhonchi.]. ABDOMEN: [Soft, non tender]. MUSCULOSKELETAL: [No joint deformity noted]. EXTREMITIES: [No pedal edema appreciated. No overlying skin changes. Pulses intact]. NEUROLOGICAL: [Patient not oriented. Speech nonsensical. Patient moves all fours during exam.]. PSYCHIATRIC: [Patient is not oriented]. LABORATORY DATA: See below. IMAGING: [CXR: FINDINGS: Lungs: No consolidation. Pleural spaces: Unremarkable. No pleural effusion. No pneumothorax. Heart/Mediastinum: Stable cardiac silhouette. Bones/joints: Osteopenia. IMPRESSION: No acute process. Head CT: FINDINGS: Brain: Age-related volume loss. No acute intracranial hemorrhage, midline shift or intracranial mass effect. Cerebral ventricles: No hydrocephalus. Paranasal sinuses: Visualized sinuses are unremarkable. No fluid levels. Mastoid air cells: Visualized mastoid air cells are well aerated. Bones/joints: Unremarkable. No acute fracture. Soft tissues: Unremarkable. IMPRESSION: No acute intracranial abnormality. ] MICROBIOLOGY: Please see below. ASSESSMENT: [Very confused 65 y/o female with supposedly distant history of alcohol abuse with recent relapse. Patient unable to provide history at time of my exam. Blood pressures in the ED shown to be very elevated with highest readings showing systolic >240]. . PLAN: 1. [AMS - Potentially hypertensive encephalopathy. Other ddx includes etoh withdrawal/korsakoff syndrome, cva - Patient given hydralazine in the ed to brief relief - Will give iv labetalol - Will start ciwa protocol - MRI/MRA brain ordered to r/o cva or other acute intracranial activity - Suspicion for encephalitis is low without fevers, white count, nuchal rigidity - Will keep on tele d/t possible etoh withdrawal - b1, b12, folate, ggt ordered - Admit to pcu for w/u and tx 2. DM2 - sliding scale coverage - hypoglycemic protocol 3. HTN - continue lisinopril - patient most likely needs up titration of this dose pending workup 4. HLD - continue atorvastatin 5. Asthma - continue inhalers 6. Depression/anxiety - continue prozac - holding at home ativan dose for now. patient will be receiving this via ciwa protocol for now DVT prophylaxis - mechanical]. Vital Signs Vital Signs Date Time Temp Pulse Resp B/P (MAP) Pulse Ox O2 Delivery O2 Flow Rate FiO2 10/22/20 00:35 242/116 10/22/20 00:29 99.7 10/22/20 00:08 80 18 97 Room Air Laboratory Data Labs 24H Laboratory Tests 2 10/21/20 22:37: Immature Granulocyte % (Auto) 0.3, Neutrophils (%) (Auto) 58.7, Lymphocytes (%) (Auto) 32.4, Monocytes (%) (Auto) 7.0, Eosinophils (%) (Auto) 0.9, Basophils (%) (Auto) 0.7, Neutrophils # (Auto) 4.4, Lymphocytes # (Auto) 2.4, Monocytes # (Auto) 0.5, Eosinophils # (Auto) 0.1, Basophils # (Auto) 0.1, Nucleated Red Blood Cells % (auto) 0.0, Anion Gap 6L, Glomerular Filtration Rate > 60.0, Osmolality 284, Calcium Level 9.0, Total Creatine Kinase 123, Creatine Kinase MB < 1.0, Creatine Kinase MB Relative Index 0.81, Troponin I < 0.02, Salicylates Level < 1.7L, Acetaminophen Level < 2.0L, Ethyl Alcohol Level < 0.003 10/21/20 22:55: Urine Color YELLOW, Urine Appearance CLEAR, Urine pH 7.0, Urine Specific [place] 1.006, Urine Protein NEGATIVE, Urine Glucose (UA) NEGATIVE, Urine Ketones NEGATIVE, Urine Blood NEGATIVE, Urine Nitrite NEGATIVE, Urine Bilirubin NEGATIVE, Urine Urobilinogen 0.2, Urine Leukocyte Esterase TRACEH, Urine WBC (Auto) 2, Urine RBC (Auto) 0, Urine Hyaline Casts (Auto) 0, Urine Bacteria (Auto) NEGATIVE, Urine Squamous Epithelial Cells 5, Urine Sperm (Auto) 10/21/20 22:57: Urine Opiates Screen NEGATIVE, Urine Methadone Screen NEGATIVE, Urine Barbiturates Screen NEGATIVE, Urine Phencyclidine Screen NEGATIVE, Urine Amphetamines Screen NEGATIVE, Urine Benzodiazepines Screen NEGATIVE, Urine Cocaine Metabolite Screen NEGATIVE, Urine Cannabinoids Screen NEGATIVE 10/22/20 00:27: Ammonia 21 CBC/BMP Laboratory Tests 10/21/20 22:37 Microbiology Microbiology 10/21/20 Urine Culture, Received Pending Home Medications Scheduled Ascorbic Acid (Vitamin C) 500 Mg Tablet, 1,000 MG PO DAILY Aspirin (Aspirin EC) 81 Mg Tablet.dr, 81 MG PO DAILY Atorvastatin Calcium (Atorvastatin Calcium) 20 Mg Tablet, 20 MG PO DAILY Dulaglutide (Trulicity) 1.5 Mg/0.5 Ml Pen.injctr, 1.5 MG SC QWEEK Fluoxetine Hcl (Fluoxetine HCl) 20 Mg Capsule, 40 MG PO DAILY Lisinopril (Lisinopril) 10 Mg Tablet, 10 MG PO DAILY [place]-3 Fatty Acids/Fish Oil (Fish Oil 1,000 mg Capsule) 1 Each Capsule, 1,000 MG PO DAILY Sennosides (Senna) 8.6 Mg Tablet, 1 TAB PO DAILY Scheduled PRN Albuterol Sulfate (Proair Hfa) 8.5 Gm Hfa.aer.ad, 2 PUFF INH QID PRN for SHORTNESS OF BREATH Lorazepam (Ativan) 1 Mg Tablet, 1 MG PO QID PRN for ANXIETY Sodium Chloride (Saline Nasal [place]) 44 Ml [place], 1 SPRAY NA QID PRN for NASAL DRYNESS Trazodone HCl (Trazodone HCl) 50 Mg Tab, 50 MG PO QHS PRN for INSOMNIA Zaleplon (Zaleplon) 10 Mg Capsule, 10 MG PO QHS PRN for INSOMNIA Allergies Coded Allergies: iodine (Verified Allergy, Severe, anaphylaxis, 08/19/20) shellfish derived (Verified Allergy, Severe, anaphylaxis, 08/19/20) A-FIB/CHADSVASC A-FIB History Current/History of A-Fib/PAF?: No TOD PASTRANA Oct 22, 2020 02:18
[2020-10-22] MEDS ORDERED: HOME MED LIST COMPLETE! XX SCH (02:20)
[2020-10-22] MEDS ORDERED: ALBUTEROL 90 MCG/ACT 8GM HFA INHALER INH PRN (02:25)
[2020-10-22] MEDS ORDERED: SODIUM CHLORIDE NASAL 0.65% SPRAY BTL (OCEAN) PRN (02:25)
[2020-10-22] MEDS: LABETALOL 100MG/20ML VIAL IV SCH ×3 (03:00→03:10)
[2020-10-22 03:06] LABS: RSV AMPLIFICATION NEGATIVE (NEGATIVE)
[2020-10-22] MEDS ORDERED: LORazepam 2 MG/ML VIAL IV PRN (04:05)
[2020-10-22] MEDS: OXAZEPAM 10 MG CAP PO SCH ×3 (06:24→21:00)
--- NOTE | 2020-10-22 08:02 | ECGEPIP ---
[facility] - ED Test Date: 2020-10-21 Pat Name: HEYDI SANTO Department: Room: [place] [address] Gender: Female Lift Operator: PAUL : 1955 Requested By: RITA Espinoza Order Number: [id number] Reading MD: James Molina Measurements Intervals [place] Rate: 82 P: 7 GA: 94 QRS: -30 QRSD: 82 T: 24 QT: 394 QTc: 460 Interpretive Statements Sinus rhythm with short GA Nonspecific ST and T wave abnormality BASELINE ARTIFACT AFFECTS INTERPRETATION SIMILAR TO 09/05/20 Electronically Signed on 10-22-2020 8:02:01 EDT by James Molina
[2020-10-22 08:19] LABS: FOLATE 21.9 NG/ML (>5.4)
--- NOTE | 2020-10-22 08:56 | REPVR ---
PROCEDURE INFORMATION: Exam: MR Head Without Contrast Exam date and time: 10/22/2020 8:12 AM Age: 65 years old Clinical indication: Altered mental status/memory loss; Confusion or disorientation; Additional info: AMS, hypertensive crisis TECHNIQUE: Imaging protocol: MR of the head without contrast. COMPARISON: CT Head without contrast 10/21/2020 11:16 PM FINDINGS: Brain: There is mild patchy increased T2 signal intensity within the bilateral cerebral periventricular white matter, consistent with chronic microvascular ischemic changes. There is no abnormal diffusion weighted signal intensity to suggest an acute ischemic event. On gradient echo imaging, no susceptibility changes are seen to represent parenchymal calcification or degraded blood products. There is mild diffuse cerebral atrophy present, consistent with this patient's age. Cerebral ventricles: The ventricular system demonstrates mild diffuse compensatory enlargement. Bones/joints: Unremarkable. Paranasal sinuses: Normal as visualized. No acute sinusitis. Mastoid air cells: Normal as visualized. No mastoid effusion. Orbital cavity: Unremarkable. Soft tissues: Unremarkable. IMPRESSION: 1. No acute infarction, masses or hemorrhage is seen. No acute intracranial abnormality is identified. 2. Diffuse age-related cerebral atrophy and mild chronic microvascular white matter ischemic changes, without evidence of an acute intracranial abnormality. 3. There has been no adverse interval change since the previous study. Electronically signed by: Greyson Rashid On 10/22/2020 08:56:29 AM
--- NOTE | 2020-10-22 08:56 | REP ---
INDICATION: Assess stenosis TECHNIQUE: Carotid ultrasonography was performed bilaterally FINDINGS: Right: CCA systolic: 58.5 centimeters/second CCA diastolic: 12.8 centimeters/second ICA systolic: 53.6 centimeters/second ICA diastolic: 20.6 centimeters/second ICA CCA ratio: 0.92 Left: CCA systolic: 78.1 centimeters/second CCA diastolic: 24.6 centimeters/second ICA systolic: 52.8 centimeters/second ICA diastolic: 22.9 centimeters/second ICA CCA ratio: 0.68 Vertebral artery: Right: Antegrade flow left: Antegrade flow IMPRESSION: According to the SRU criteria there is less than 50% stenosis of the internal carotid artery bilaterally <Electronically signed by Andrew Martinez > 10/22/20 [id number]
--- NOTE | 2020-10-22 08:59 | REPVR ---
PROCEDURE INFORMATION: Exam: MRA Head Without Contrast; Arteriography Exam date and time: 10/22/2020 8:12 AM Age: 65 years old Clinical indication: Cognitive deficit; Altered mental status; Additional info: Encephalopathy TECHNIQUE: Imaging protocol: Magnetic resonance angiography head without contrast. Exam focused on the arteries. 3D rendering (Not supervised by radiologist): MIP and/or 3D reconstructed images were created by the technologist. COMPARISON: CT Head without contrast 10/21/2020 11:16 PM FINDINGS: ANTERIOR CIRCULATION: Right internal carotid artery: Intracranial segment is patent with no significant stenosis. No aneurysm. Right middle cerebral artery: No occlusion or significant stenosis. No aneurysm. Right anterior cerebral artery: No occlusion or significant stenosis. No aneurysm. Left internal carotid artery: Intracranial segment is patent with no significant stenosis. No aneurysm. Left middle cerebral artery: No occlusion or significant stenosis. No aneurysm. Left anterior cerebral artery: No occlusion or significant stenosis. No aneurysm. POSTERIOR CIRCULATION: Right vertebral artery: No occlusion or significant stenosis. No aneurysm. Hypoplastic. Left vertebral artery: No occlusion or significant stenosis. No aneurysm. Basilar artery: No occlusion or significant stenosis. No aneurysm. Right posterior cerebral artery: No occlusion or significant stenosis. No aneurysm. origin. Left posterior cerebral artery: No occlusion or significant stenosis. No aneurysm. IMPRESSION: No stenosis.No occlusion. No aneurysm. Electronically signed by: Greyson Rashid On 10/22/2020 08:58:56 AM
[2020-10-22] MEDS: THIAMINE 100 MG TAB PO SCH ×2 (09:22→21:00)
[2020-10-22] MEDS: DOCUSATE SODIUM 100MG CAPSULE PO SCH ×2 (09:22→20:59)
[2020-10-22] MEDS: FLUoxetine 20 MG CAP PO SCH (09:22)
[2020-10-22] MEDS: SENNA 8.6 MG TAB (SENOKOT) PO SCH (09:23)
[2020-10-22] MEDS: MULTIVITAMINS/MINERALS THERAP 1 TAB PO SCH (09:23)
[2020-10-22] MEDS: ASPIRIN 81MG ENTERIC TABLET PO SCH (09:23)
[2020-10-22] MEDS: FOLIC ACID 1 MG TAB PO SCH (09:23)
[2020-10-22] MEDS: ATORVASTATIN 20 MG TAB PO SCH (09:23)
[2020-10-22] MEDS: HumaLOG INSULIN (NovoLOG) PER UNIT SC SCH ×4 (09:27→20:09)
--- NOTE | 2020-10-22 14:32 | IPNPDOC ---
Text Note Date of Service The patient was seen on 10/22/20. NOTE Subjective: Patient is a 65-year-old female with past medical history of CVA, TIA, migraines, hyperlipidemia, hypertension and type 2 diabetes who was brought to the emergency department on 10 21 by her son for evaluation for altered mental status. Patient was unable to provide a history at the time of her admission. Patient tells me today that she has been having issues with her family. Patient states that she started drinking but only drank 2 malt beverages 3 days ago. Patient was reported to have very high blood pressures when she initially presented. Patient tells me today that she has been hearing spiritual music and other sounds but denies having any suicidal or homicidal ideation. Patient denies hearing any voices. Patient says that she is feeling better than she was when she came in. Review of systems: General: Patient denies fevers HEENT: Patient denies headaches Cardiovascular: Patient denies chest pain Respiratory: Patient denies shortness of breath, cough GI: Patient denies abdominal pain, nausea, vomiting, diarrhea : Patient denies increased frequency or pain with urination Extremities: Patient denies swelling or pain in extremities Neurological: Patient denies numbness or tingling in legs Physical exam: Vitals: See below General: Alert and oriented female patient who was sitting up in bed when I walked in. Patient did not appear to be in any acute distress. HEENT: Normocephalic, atraumatic, moist mucous membranes. Neck: No lymphadenopathy or thyromegaly Cardiac: Regular rate and rhythm, no murmurs, normal S1, normal S2 Pulm: Clear to auscultation bilaterally. No wheezes, rhonchi, rales Abd: Nondistended, nontender to palpation, normal bowel sounds Ext: No edema bilateral lower extremities Psych: Patient denies suicidal homicidal ideations. Patient does report hearing spiritual music. Labs: See below Imaging: MRI of the brain performed without contrast on 10/22/2020 is reported to show no acute infarction, masses or hemorrhage is seen. No acute intracranial abnormalities identified. Diffuse age-related cerebral atrophy and mild chronic microvascular white matter ischemic changes, without evidence of an acute intra cranial abnormality. There has been no adverse interval change since the previous study. MRA of the head performed without contrast on 10/22/2020 was reported to show no stenosis, no occlusion, no aneurysm. Carotid duplex ultrasound performed on 10/22/2020 is reported to show according to the SRU criteria there is less than 50% stenosis of the internal carotid arteries bilaterally. Assessment/plan: 65-year-old female supposedly distant history of alcohol abuse with recent relapse who presented to the emergency department with her son due to altered mental status who was found to have very elevated blood pressures. 1. Altered mental status. This was potentially due to hypertensive encepha lopathy although other differential included EtOH withdrawal/Korsakoff syndrome/CVA. MRI does not show any evidence of CVA. Patient's mentation is better today as her blood pressure has improved. Patient will remain on the CIWA protocol. We will continue to monitor the patient's blood pressure. In talking with nursing who spoke with the patient's daughter who cares for the patient, patient has been known to take a 30-day supply of medication in 3 days. Patient is prescribed benzodiazepines for anxiety which this may be the reason why the patient was having the altered mental status although her tox screen was negative. Patient also does have a psychiatric history with suicidal ideations in the past. Once the patient is medically stable, I will consult psychiatry to see the patient. This will most likely be tomorrow. 2. Hypertensive emergency, resolved. Patient's systolic blood pressures were greater than 240 on the highest reading of the altered mental status patient's blood pressure needed to be decreased quickly. Patient's blood pressure is now back within a normal range and we will continue her home hypertensives. 3. Type 2 diabetes. Sliding scale coverage. 4. Hyperlipidemia. Continue atorvastatin. 5. Asthma. Continue inhalers. 6. Depression/anxiety. Hold Ativan for now. Patient will be on CIPR protocol. DVT Prophylaxis: Mechanical Disposition: Pending clinical improvement and psychiatric evaluation. VS,Fishbone, I+O VS, Fishbone, I+O Laboratory Tests 10/21/20 22:37 Vital Signs Date Time Temp Pulse Resp B/P (MAP) Pulse Ox O2 Delivery O2 Flow Rate FiO2 10/22/20 09:26 145/80 10/22/20 08:30 98.4 89 18 96 Room Air I&O- Last 24 Hours up to 6 AM 10/22/20 06:00 Intake Total 0 ml Output Total 150 ml Balance -150 ml MARCIA GUADALUPE DO Oct 22, 2020 14:32
[2020-10-23] VITALS (9 sets, daily range): BP systolic 106–163; BP diastolic 59–92
[2020-10-23] MEDS: OXAZEPAM 10 MG CAP PO SCH (05:54)
[2020-10-23] MEDS: ACETAMINOPHEN TAB 650MG DOSE (2X325MG) PO PRN (06:01)
[2020-10-23 06:07] LABS: HEMATOCRIT 42.3 % (36.0-47.0); MEAN CORPUSCULAR HGB CONC 33.1 g/dl (32.0-36.5); MEAN CORPUSCULAR VOLUME 90.8 fl (80.0-96.0); PLATELET COUNT, AUTOMATED 224 10^3/uL (150-450); RED BLOOD COUNT 4.66 10^6/uL (4.00-5.40); WHITE BLOOD COUNT 7.5 10^3/uL (4.0-10.0)
[2020-10-23 06:32] LABS: ALBUMIN 3.6 GM/DL (3.2-5.2); ALT/SGPT 80 U/L (12-78); BILIRUBIN,TOTAL 1.3 MG/DL (0.2-1.0); BLOOD UREA NITROGEN 12 MG/DL (7-18); CALCIUM LEVEL 8.9 MG/DL (8.8-10.2); CARBON DIOXIDE LEVEL 26 MEQ/L (21-32); CHLORIDE LEVEL 108 MEQ/L (98-107); GLOMERULAR FILTRATION RATE > 60.0 (>45); GLUCOSE, FASTING 137 MG/DL (70-100); MAGNESIUM LEVEL 2.2 MG/DL (1.8-2.4); POTASSIUM SERUM 4.2 MEQ/L (3.5-5.1); SODIUM LEVEL 139 MEQ/L (136-145); TOTAL PROTEIN 6.9 GM/DL (6.4-8.2)
[2020-10-23] MEDS: HumaLOG INSULIN (NovoLOG) PER UNIT SC SCH ×4 (08:43→21:04)
[2020-10-23] MEDS: MULTIVITAMINS/MINERALS THERAP 1 TAB PO SCH (08:43)
[2020-10-23] MEDS: ASPIRIN 81MG ENTERIC TABLET PO SCH (08:43)
[2020-10-23] MEDS: FLUoxetine 20 MG CAP PO SCH (08:43)
[2020-10-23] MEDS: FOLIC ACID 1 MG TAB PO SCH (08:43)
[2020-10-23] MEDS: SENNA 8.6 MG TAB (SENOKOT) PO SCH (08:44)
[2020-10-23] MEDS: DOCUSATE SODIUM 100MG CAPSULE PO SCH ×2 (08:44→20:27)
[2020-10-23] MEDS: ATORVASTATIN 20 MG TAB PO SCH (08:44)
[2020-10-23] MEDS: THIAMINE 100 MG TAB PO SCH ×2 (09:02→20:27)
--- NOTE | 2020-10-23 09:55 | MHCRPDOC ---
[facility] Consultation Consultation DATE OF CONSULTATION: 10/23/20 CONSULTATION REQUESTED BY: REASON FOR CONSULTATION: Altered mental status. RELEVANT HISTORY: 65-year-old female with history of the polysubstance abuse primarily benzodiazepine Percocet and alcohol. She reportedly was in sobriety for 6 years but in the past 3 months has been using combination of benzodiazepine and also started drinking heavily in the past 2 weeks. Patient came to emergency room and grossly confused mental status admitted for evaluation of encephalopathy and admission tox screen was negative.. PAST PSYCHIATRIC HISTORY: Patient has long history of prescription medicine abuse and alcohol abuse. She had 1 brief admission inpatient psychiatry in August of this year but discharged after 2 days. PAST MEDICAL HISTORY: History of hypertension FAMILY HISTORY: Mother: Father: Siblings: Children: Has 1 son biological son with schizoaffective disorder and 1 adopted a daughter who also has schizoaffective disorder PERSONAL AND SOCIAL HISTORY: The patient was born and raised in [place]. 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 Currently doing volunteer work SUBSTANCE ABUSE HISTORY: Smoking: ETOH: Was in sobriety but relapsed about 2 months ago last drink was about 4 nights ago Illicit Drugs: Primarily prescription medicine Percocet Vicodin and benzodiazepines. Recently used 3-month supply of benzodiazepine in a matter of few days but last use was about 7 days ago which he explains may be a negative tox screen. She denies any use of Percocet or Vicodin since nasal surgery 2 months ago LEGAL HISTORY: No legal history. MENTAL STATUS EXAMINATION: Patient is a AGE-year old female, who is alert awake in no acute distress. Speech is rational and coherent but at times slightly circumstantial. Language skills are good. Thought processes including: Organized but at times circumstantial. Thought content: Denies any paranoia hallucination or suicidal thoughts. Abstract reasoning, and computation: Fair. Description of associations: Fairly well organized. Description of abnormal or psychotic thoughts: Was reporting hearing some music at times but currently no auditory or visual hallucinations and no paranoia. Judgment: Fair. Insight: Fair. Orientation to well oriented. Recent and remote memory: No gross impairment. Attention span and concentration: Fair. Language:. Fund of knowledge: Average. Mood: Euthymic. Affect: Appropriate. DIAGNOSIS: 1. The patient apparently suffered from acute delirium most likely from benzodiazepine abuse. Her last use of the benzodiazepine was 7 days ago and her continued alcohol use might have masked acute withdrawal until she stopped drinking 4 nights ago. In either case she is showing much improvement and currently showing no gross hallucination paranoia or confusion and does not appear to be clinically depressed and not suicidal. She is not showing good deal of intellectual insight and understands that she cannot be taking any benzodiazepine or opiate pain medicine. She will be encouraged to attend substance abuse treatment including self-help group.. PLAN: 1.. Patient can be discharged when medically clear 2.. Vital Signs Vital Signs Date Time Temp Pulse Resp B/P (MAP) Pulse Ox O2 Delivery O2 Flow Rate FiO2 10/23/20 08:48 64 148/78 10/23/20 08:37 98.7 18 97 Room Air Laboratory Data 24H Labs Laboratory Tests 2 10/22/20 12:10: Bedside Glucose (Misc Panel) 115 10/22/20 17:28: Bedside Glucose (Misc Panel) 117H 10/22/20 20:08: Bedside Glucose (Misc Panel) 146H 10/23/20 05:43: Nucleated Red Blood Cells % (auto) 0.0, Anion Gap 5L, Glomerular Filtration Rate > 60.0, Calcium Level 8.9, Magnesium Level 2.2, Total Bilirubin 1.3H, Aspartate Amino Transf (AST/SGOT) 50H, Alanine Aminotransferase (ALT/SGPT) 80H, Alkaline Phosphatase 86, Total Protein 6.9, Albumin 3.6, Albumin/Globulin Ratio 1.1L Home Medications Current Medications Current Medications Medications (Trade) Dose Ordered Sig/Natan Route PRN Reason Start Time Stop Time Status Last Admin Dose Admin Acetaminophen (Tylenol Tab) 650 mg Q4H PRN PO MILD PAIN or TEMP > 101 10/22/20 02:15 10/23/20 06:01 Al Hydrox/Mg Hydrox/Simethicone (Mylanta) 30 ml DAILY PRN PO DYSPEPSIA 10/22/20 02:15 Albuterol Sulfate (Proventil, Ventolin Hfa) 2 puff QID PRN INH SHORTNESS OF BREATH 10/22/20 02:25 Aspirin (Ecotrin) 81 mg DAILY PO 10/22/20 09:00 10/23/20 08:43 Atorvastatin Calcium (Lipitor) 20 mg DAILY PO 10/22/20 09:00 10/23/20 08:44 Dextrose (Dextrose 50%) 25 ml ASDIRECTED PRN IV SEE LABEL COMMENTS 10/22/20 02:15 Docusate Sodium (Colace) 100 mg BID PO 10/22/20 09:00 10/23/20 08:44 Fluoxetine HCl (PROzac) 40 mg DAILY PO 10/22/20 09:00 10/23/20 08:43 Folic Acid (Folic Acid) 1 mg DAILY PO 10/22/20 09:00 10/23/20 08:43 Glucagon (Glucagon) 1 mg ASDIRECTED PRN SC SEE LABEL COMMENTS 10/22/20 02:15 Glucose (Glucose) 16 GM ASDIRECTED PRN PO SEE LABEL COMMENTS 10/22/20 02:15 Home Med (Home Med List Complete!) ASDIRECTED XX 10/22/20 02:20 10/22/20 02:43 DC Insulin Human Lispro (HumaLOG INSULIN) SEE PROTOCOL TABLE AC SC 10/22/20 07:30 10/23/20 08:43 Insulin Human Lispro (HumaLOG INSULIN) SEE PROTOCOL TABLE QHS SC 10/22/20 21:00 Labetalol HCl (Normodyne, Trandate) 20 mg Q5M IV 10/22/20 03:00 10/22/20 03:11 DC Lisinopril (Prinivil) 10 mg DAILY PO 10/22/20 09:00 10/23/20 08:44 Lorazepam (Ativan) 2 mg ASDIRECTED PRN IV SEE PROTOCOL 10/22/20 04:05 Lorazepam (Ativan) 2 mg ASDIRECTED PRN PO SEE PROTOCOL 10/22/20 02:15 10/22/20 04:08 DC Lorazepam (Ativan) 2 mg STAT STAT IV 10/22/20 02:11 10/22/20 02:17 DC 10/22/20 02:40 Magnesium Hydroxide (Milk Of Magnesia) 30 ml DAILY PRN PO CONSTIPATION 10/22/20 02:15 Multivitamins (Theragram-M) 1 tab DAILY PO 10/22/20 09:00 10/23/20 08:43 Oxazepam (Serax) 20 mg Q8H PO 10/22/20 06:00 10/23/20 05:54 Senna (Senokot) 1 tab DAILY PO 10/22/20 09:00 10/23/20 08:44 Sodium Chloride ([place] Nasal [place]) 1 spray QID PRN NA NASAL DRYNESS 10/22/20 02:25 Thiamine HCl (Thiamine HCl) 100 mg BID PO 10/22/20 09:00 10/25/20 08:59 10/23/20 09:02 Scheduled Ascorbic Acid (Vitamin C) 500 Mg Tablet, 1,000 MG PO DAILY, (Reported) Aspirin (Aspirin EC) 81 Mg Tablet.dr, 81 MG PO DAILY, (Reported) Atorvastatin Calcium (Atorvastatin Calcium) 20 Mg Tablet, 20 MG PO DAILY, (Reported) Dulaglutide (Trulicity) 1.5 Mg/0.5 Ml Pen.injctr, 1.5 MG SC QWEEK, (Reported) Fluoxetine Hcl (Fluoxetine HCl) 20 Mg Capsule, 40 MG PO DAILY, (Reported) Lisinopril (Lisinopril) 10 Mg Tablet, 10 MG PO DAILY, (Reported) [place]-3 Fatty Acids/Fish Oil (Fish Oil 1,000 mg Capsule) 1 Each Capsule, 1,000 MG PO DAILY, (Reported) Sennosides (Senna) 8.6 Mg Tablet, 1 TAB PO DAILY, (Reported) Scheduled PRN Albuterol Sulfate (Proair Hfa) 8.5 Gm Hfa.aer.ad, 2 PUFF INH QID PRN for SHORTNESS OF BREATH, (Reported) Lorazepam (Ativan) 1 Mg Tablet, 1 MG PO QID PRN for ANXIETY, (Reported) Sodium Chloride (Saline Nasal [place]) 44 Ml [place], 1 SPRAY NA QID PRN for NASAL DRYNESS, (Reported) Trazodone HCl (Trazodone HCl) 50 Mg Tab, 50 MG PO QHS PRN for INSOMNIA, (Reported) Zaleplon (Zaleplon) 10 Mg Capsule, 10 MG PO QHS PRN for INSOMNIA, (Reported) Allergies Coded Allergies: iodine (Verified Allergy, Severe, anaphylaxis, 08/19/20) shellfish derived (Verified Allergy, Severe, anaphylaxis, 08/19/20) ADE MARTINEZ M.D. Oct 23, 2020 09:55
[2020-10-23] MEDS ORDERED: OXAZ15CA4 PO (10:22)
[2020-10-23] MEDS ORDERED: OXAZ10CA3 PO ×4 (10:22→10:26)
[2020-10-23] MEDS ORDERED: OXAZEPAM 15 MG CAP PO SCH (14:00)
--- NOTE | 2020-10-23 14:22 | IPNPDOC ---
Text Note Date of Service The patient was seen on 10/23/20. NOTE Subjective: 65-year-old female with past medical history of CVA, TIA, migraines, hyperlipidemia, hypertension, and type 2 diabetes who was brought to the emergency room by her son for evaluation due to altered mental status. Patient most likely was withdrawing from benzodiazepines. Patient will go in and out of being lucid before, becoming paranoid. Patient is otherwise doing well at this time. Patient was seen by psychiatry earlier today. Review of systems: General: Patient denies fevers HEENT: Patient denies headaches Cardiovascular: Patient denies chest pain Respiratory: Patient denies shortness of breath, cough GI: Patient denies abdominal pain, nausea, vomiting, diarrhea : Patient denies increased frequency or pain with urination Extremities: Patient denies swelling or pain in extremities Neurological: Patient denies numbness or tingling in legs Physical exam: Vitals: See below General: Alert and oriented female sitting up in bed when I walked in. Patient did not appear to be in any acute distress. HEENT: Normocephalic, atraumatic, moist mucous membranes. Neck: No lymphadenopathy or thyromegaly Cardiac: Regular rate and rhythm, no murmurs, normal S1, normal S2 Pulm: Clear to auscultation bilaterally. No wheezes, rhonchi, rales Abd: Nondistended, nontender to palpation, normal bowel sounds Ext: No edema bilateral lower extremities psych: Patient denies any suicidal or homicidal ideations. Patient denies hearing spiritual or other music Labs: See below Imaging: No new imaging has been performed Assessment/plan: 65-year-old female with supposedly distant history of alcohol abuse with long history of benzodiazepine abuse who presented to the hospital with altered mental status. 1. Altered mental status. Potentially due to hypertensive encephalopathy however, patient continues to have episodes of paranoia. Patient was seen by anastasiia morocho who cleared the patient from a mental health standpoint however, patient still having some paranoid delusions which may be secondary to the patient's benzodiazepine withdrawal. I queried the state prescription monitoring program (iSTOP: [id number]) and saw that the patient received a presc ription of lorazepam 1 mg on 10/09/2020 for a 30-day supply with 120 tablets dispensed. In speaking with the patient's daughter who had a long conversation on the phone that lasted about 26 minutes, patient's daughter states that the patient took all of these medications within an 8 to 10-day period. Patient's daughter states that the patient does not tell them what medication she is prescribed. The prescription monitoring program states that the patient has been getting 0.5 mg of clonazepam on a regular basis for a 30-day supply of 120 tablets dispensed on a monthly basis for the past few months prior to October 09 when she was switched over to lorazepam. I believe the patient is still with drawing from benzodiazepines. Patient was initially planned to be discharged today however, the patient appeared to be more confused and paranoid in the afternoon so her discharge was canceled. 2. Hypertensive emergency, resolved. Patient systolic blood pressures were greater than 240 at the highest. Altered mental status has waxed and waned as above now that her pressures are back in the normal range. We will have to continue to monitor. 3. Type 2 diabetes. Sliding scale coverage. 4. Hyperlipidemia. Continue atorvastatin. 5. Asthma. Continue inhalers. 6. Depression/anxiety. Hold benzodiazepines for now. Patient is currently on Serax. DVT Prophylaxis: Mechanical Disposition: Pending clinical improvement. VS,Stevebone, I+O VS, Fishbone, I+O Laboratory Tests 10/23/20 05:43 Vital Signs Date Time Temp Pulse Resp B/P (MAP) Pulse Ox O2 Delivery O2 Flow Rate FiO2 10/23/20 12:00 80 144/83 10/23/20 08:37 98.7 18 97 Room Air I&O- Last 24 Hours up to 6 AM 10/23/20 06:00 Intake Total 900 ml Output Total 0 ml Balance 900 ml MARCIA GUADALUPE DO Oct 23, 2020 14:22
[2020-10-23] MEDS: OXAZEPAM 15 MG CAP PO SCH (20:27)
[2020-10-24] MEDS: OXAZEPAM 15 MG CAP PO SCH ×2 (01:58→08:06)
[2020-10-24 06:00] VITALS: BP 142/86
[2020-10-24 07:43] LABS: HEMATOCRIT 45.3 % (36.0-47.0); HEMOGLOBIN 15.2 g/dl (12.0-15.5); MEAN CORPUSCULAR HEMOGLOBIN 30.1 pg (27.0-33.0); MEAN CORPUSCULAR HGB CONC 33.6 g/dl (32.0-36.5); MEAN CORPUSCULAR VOLUME 89.7 fl (80.0-96.0); PLATELET COUNT, AUTOMATED 293 10^3/uL (150-450); RED BLOOD COUNT 5.05 10^6/uL (4.00-5.40); WHITE BLOOD COUNT 9.9 10^3/uL (4.0-10.0)
[2020-10-24] MEDS: FLUoxetine 20 MG CAP PO SCH ×2 (08:06→09:00)
[2020-10-24] MEDS: DOCUSATE SODIUM 100MG CAPSULE PO SCH ×3 (08:06→22:08)
[2020-10-24] MEDS: FOLIC ACID 1 MG TAB PO SCH ×2 (08:06→09:00)
[2020-10-24] MEDS: ASPIRIN 81MG ENTERIC TABLET PO SCH ×2 (08:06→09:00)
[2020-10-24] MEDS: ATORVASTATIN 20 MG TAB PO SCH ×2 (08:06→09:00)
[2020-10-24] MEDS: MULTIVITAMINS/MINERALS THERAP 1 TAB PO SCH ×2 (08:06→09:00)
[2020-10-24] MEDS: THIAMINE 100 MG TAB PO SCH ×3 (08:07→22:08)
[2020-10-24] MEDS: SENNA 8.6 MG TAB (SENOKOT) PO SCH ×2 (08:08→09:00)
[2020-10-24] MEDS: HumaLOG INSULIN (NovoLOG) PER UNIT SC SCH ×4 (08:08→22:07)
[2020-10-24 08:17] LABS: ALBUMIN 4.1 GM/DL (3.2-5.2); ALT/SGPT 93 U/L (12-78); BILIRUBIN,TOTAL 1.3 MG/DL (0.2-1.0); BLOOD UREA NITROGEN 11 MG/DL (7-18); CARBON DIOXIDE LEVEL 23 MEQ/L (21-32); CHLORIDE LEVEL 105 MEQ/L (98-107); CREATININE FOR GFR 0.78 MG/DL (0.55-1.30); GLOMERULAR FILTRATION RATE > 60.0 (>45); GLUCOSE, FASTING 163 MG/DL (70-100); MAGNESIUM LEVEL 2.3 MG/DL (1.8-2.4); SODIUM LEVEL 138 MEQ/L (136-145); TOTAL PROTEIN 8.2 GM/DL (6.4-8.2)
[2020-10-24] MEDS: clonazePAM 1 MG TAB PO SCH ×3 (10:25→22:05)
--- NOTE | 2020-10-24 10:38 | MHCRPDOC ---
[facility] Consultation Consultation DATE OF CONSULTATION: 10/24/20 This is a psychiatric follow-up consult due to persistent mental status changes. When she was seen on October 23 she was in very good contact and control and was quite coherent and rational with no gross confusion. Patient apparently has been showing increasing confusion with the poor orientation and also making comments about hearing different voices with some paranoid islam preoccupations. Patient was seen for follow-up evaluation this morning and she is showing very poor orientation ,does not remember this MD from yesterday's visits and she is not sure of the date and place. She admits that she sometimes hear noises and voices but not able to elaborate. She is showing fairly clear evidence of delirium with the fluctuating level of memory and orientation and appears perplexed and very anxious. The history again shows serious abuse of benzodiazepine and reportedly was given either 120 tablets or 300 some tablets of Ativan 1 mg to be taken 4 times a day in September and apparently does not have any medication left. She was also given Klonopin prior to that. Her admission tox screen and tox screen done yesterday shows no presence of benzodiazepine. Patient specifically was asked about diverting the benzodiazepine prescription and the patient strongly denies giving it away and believes that she took it all. The short half-life of Ativan may be the reason why the tox screen is negative. In any case the patient seems to show significant withdrawal symptoms from benzodiazepine which could have been masked earlier by her alcohol abuse. I will have to assume that this is case of serious benzodiazepine withdrawal and first try long-acting benzodiazepine Klonopin to treat the withdrawal and gradually taper off. CONSULTATION REQUESTED BY: REASON FOR CONSULTATION: Patient has been showing increasing confusion and has been reporting occasional hallucinations. RELEVANT HISTORY: Per previous notes. PAST PSYCHIATRIC HISTORY: Per previous notes PAST MEDICAL HISTORY: FAMILY HISTORY: Mother: Father: Siblings: Children: PERSONAL AND SOCIAL HISTORY: The patient was born and raised in [place]. Resides in: [place] Marital Status: M Children: Employment: SUBSTANCE ABUSE HISTORY: Smoking: ETOH: Illicit Drugs: LEGAL HISTORY: . MENTAL STATUS EXAMINATION: Patient is a 65]-year old female, who is in control but very perplexed and poor contact. Speech is relevant but not coherent. Language skills are poor. Thought processes including: Fragmented. Thought content: Ms. grossly disorganized. Abstract reasoning, and computation: Poor. Description of associations: Disorganized. Description of abnormal or psychotic thoughts: Admits to occasional hallucinations auditory and visual. Judgment: Poor. Insight: Poor. Orientation to grossly confused. Recent and remote memory: Poor. Attention span and concentration: Poor. Language:. Fund of knowledge:. Mood: Anxious perplexed. Affect: Somewhat labile. DIAGNOSIS: 1. Acute delirium from benzodiazepine withdrawal. PLAN: 1. Start Klonopin 1 mg every 8 hours p.o.. 2.. Supportive care and I will follow Vital Signs Vital Signs Date Time Temp Pulse Resp B/P (MAP) Pulse Ox O2 Delivery O2 Flow Rate FiO2 10/24/20 08:07 135/86 10/24/20 06:00 101 10/24/20 06:00 96.6 18 99 Room Air Laboratory Data 24H Labs Laboratory Tests 2 10/23/20 11:41: Bedside Glucose (Misc Panel) 106 10/23/20 16:54: Bedside Glucose (Misc Panel) 96 10/23/20 21:03: Bedside Glucose (Misc Panel) 148H 10/24/20 06:34: Nucleated Red Blood Cells % (auto) 0.0, Anion Gap 10, Glomerular Filtration Rate > 60.0, Calcium Level 10.0, Magnesium Level 2.3, Total Bilirubin 1.3H, Aspartate Amino Transf (AST/SGOT) 47H, Alanine Aminotransferase (ALT/SGPT) 93H, Alkaline Phosphatase 113, Total Protein 8.2, Albumin 4.1, Albumin/Globulin Ratio 1.0L 10/24/20 07:57: Bedside Glucose (Misc Panel) 162H Home Medications Current Medications Current Medications Medications (Trade) Dose Ordered Sig/Natan Route PRN Reason Start Time Stop Time Status Last Admin Dose Admin Acetaminophen (Tylenol Tab) 650 mg Q4H PRN PO MILD PAIN or TEMP > 101 10/22/20 02:15 10/23/20 06:01 Al Hydrox/Mg Hydrox/Simethicone (Mylanta) 30 ml DAILY PRN PO DYSPEPSIA 10/22/20 02:15 Albuterol Sulfate (Proventil, Ventolin Hfa) 2 puff QID PRN INH SHORTNESS OF BREATH 10/22/20 02:25 Aspirin (Ecotrin) 81 mg DAILY PO 10/22/20 09:00 10/24/20 08:06 Atorvastatin Calcium (Lipitor) 20 mg DAILY PO 10/22/20 09:00 10/24/20 08:06 Clonazepam (KlonoPIN) 1 mg TID PO 10/24/20 09:00 Dextrose (Dextrose 50%) 25 ml ASDIRECTED PRN IV SEE LABEL COMMENTS 10/22/20 02:15 Docusate Sodium (Colace) 100 mg BID PO 10/22/20 09:00 10/24/20 08:06 Fluoxetine HCl (PROzac) 40 mg DAILY PO 10/22/20 09:00 10/24/20 08:06 Folic Acid (Folic Acid) 1 mg DAILY PO 10/22/20 09:00 10/24/20 08:06 Glucagon (Glucagon) 1 mg ASDIRECTED PRN SC SEE LABEL COMMENTS 10/22/20 02:15 Glucose (Glucose) 16 GM ASDIRECTED PRN PO SEE LABEL COMMENTS 10/22/20 02:15 Home Med (Home Med List Complete!) ASDIRECTED XX 10/22/20 02:20 10/22/20 02:43 DC Insulin Human Lispro (HumaLOG INSULIN) SEE PROTOCOL TABLE AC SC 10/22/20 07:30 10/24/20 08:08 Insulin Human Lispro (HumaLOG INSULIN) SEE PROTOCOL TABLE QHS SC 10/22/20 21:00 Labetalol HCl (Normodyne, Trandate) 20 mg Q5M IV 10/22/20 03:00 10/22/20 03:11 DC Lisinopril (Prinivil) 10 mg DAILY PO 10/22/20 09:00 10/24/20 08:07 Lorazepam (Ativan) 2 mg ASDIRECTED PRN IV SEE PROTOCOL 10/22/20 04:05 Lorazepam (Ativan) 2 mg ASDIRECTED PRN PO SEE PROTOCOL 10/22/20 02:15 10/22/20 04:08 DC Lorazepam (Ativan) 2 mg STAT STAT IV 10/22/20 02:11 10/22/20 02:17 DC 10/22/20 02:40 Magnesium Hydroxide (Milk Of Magnesia) 30 ml DAILY PRN PO CONSTIPATION 10/22/20 02:15 Multivitamins (Theragram-M) 1 tab DAILY PO 10/22/20 09:00 10/24/20 08:06 Oxazepam (Serax) 15 mg Q6H PO 10/23/20 20:00 10/24/20 09:37 DC 10/24/20 01:58 Oxazepam (Serax) 15 mg Q8H PO 10/23/20 14:00 10/23/20 15:07 DC 10/23/20 14:18 Oxazepam (Serax) 20 mg Q8H PO 10/22/20 06:00 10/23/20 10:06 DC 10/23/20 05:54 Senna (Senokot) 1 tab DAILY PO 10/22/20 09:00 10/24/20 08:08 Sodium Chloride ([place] Nasal [place]) 1 spray QID PRN NA NASAL DRYNESS 10/22/20 02:25 Thiamine HCl (Thiamine HCl) 100 mg BID PO 10/22/20 09:00 10/25/20 08:59 10/24/20 08:07 Scheduled Ascorbic Acid (Vitamin C) 500 Mg Tablet, 1,000 MG PO DAILY, (Reported) Aspirin (Aspirin EC) 81 Mg Tablet.dr, 81 MG PO DAILY, (Reported) Atorvastatin Calcium (Atorvastatin Calcium) 20 Mg Tablet, 20 MG PO DAILY, (Reported) Dulaglutide (Trulicity) 1.5 Mg/0.5 Ml Pen.injctr, 1.5 MG SC QWEEK, (Reported) Fluoxetine Hcl (Fluoxetine HCl) 20 Mg Capsule, 40 MG PO DAILY, (Reported) Lisinopril (Lisinopril) 10 Mg Tablet, 10 MG PO DAILY, (Reported) [place]-3 Fatty Acids/Fish Oil (Fish Oil 1,000 mg Capsule) 1 Each Capsule, 1,000 MG PO DAILY, (Reported) Oxazepam (Oxazepam) 15 Mg Capsule, 1 CAP PO TID Oxazepam (Oxazepam) 10 Mg Capsule, 1 CAP PO TID Oxazepam (Oxazepam) 10 Mg Capsule, 1 CAP PO BID Oxazepam (Oxazepam) 10 Mg Capsule, 10 MG PO QHS Sennosides (Senna) 8.6 Mg Tablet, 1 TAB PO DAILY, (Reported) Scheduled PRN Albuterol Sulfate (Proair Hfa) 8.5 Gm Hfa.aer.ad, 2 PUFF INH QID PRN for SHORTNESS OF BREATH, (Reported) Sodium Chloride (Saline Nasal [place]) 44 Ml [place], 1 SPRAY NA QID PRN for NASAL DRYNESS, (Reported) Trazodone HCl (Trazodone HCl) 50 Mg Tab, 50 MG PO QHS PRN for INSOMNIA, (Reported) Allergies Coded Allergies: iodine (Verified Allergy, Severe, anaphylaxis, 08/19/20) shellfish derived (Verified Allergy, Severe, anaphylaxis, 08/19/20) ADE MARTINEZ M.D. Oct 24, 2020 10:38
[2020-10-24 14:00] VITALS: BP 152/113
[2020-10-24] MEDS ORDERED: HALOPERIDOL 5MG/ML VIAL (J1630 PER 1) IM STA (14:05)
[2020-10-24] MEDS ORDERED: diphenhydrAMINE 50MG/ML VIAL (J1200) IM STA (14:05)
[2020-10-24] MEDS ORDERED: HALOPERIDOL 5MG/ML VIAL (J1630 PER 1) IM PRN (14:15)
[2020-10-24] MEDS ORDERED: diphenhydrAMINE 50MG/ML VIAL (J1200) IM PRN (14:15)
--- NOTE | 2020-10-24 16:39 | IPNPDOC ---
Text Note Date of Service The patient was seen on 10/24/20. NOTE Subjective: 65-year-old female with past medical history of CVA, TIA, migraines, hyperlipidemia, hypertension, and type 2 diabetes who was brought to the emergency department by her son for evaluation due to altered mental status. Patient is most likely withdrawing from benzodiazepines. Patient is much more paranoid and delusional today. Psychiatry came and saw the patient and agrees the patient is much more confused than she was yesterday. Patient is walking around with a bed sheet around her with orthodox preoccupation and talking about how we would do not look her in the eye when speaking with her. Patient was becoming more aggressive and agitated with staff. Patient initially would not speak to me when I went to talk to her today. Patient would not open her eyes and look at me when I was in the room talking with her. Review of systems: Unobtainable as the patient would not speak to me. Physical exam: Vitals: See below General: Alert but not oriented female who was sitting up in bed. Patient was seen walking around the unit. Patient did not appear to be in any acute distress. HEENT: Normocephalic, atraumatic, moist mucous membranes. Neck: No lymphadenopathy or thyromegaly Cardiac: Regular rate and rhythm, no murmurs, normal S1, normal S2 Pulm: Clear to auscultation bilaterally. No wheezes, rhonchi, rales Abd: Nondistended, nontender to palpation, normal bowel sounds Ext: No edema bilateral lower extremities Psych: Patient was paranoid and had orthodox preoccupation. Patient was walking around with a bedsheet draped over her shoulders and then wrapped around her waist with her hands up stating that Gaby and Cedrick were present. Labs: See below Imaging: No new imaging has been performed. Assessment/plan: 65-year-old female with a supposedly distant history of alcohol abuse with long history of benzodiazepine abuse who presented to the hospital with altered mental status. 1. Altered mental status. This may have been secondary to hypertensive encephalopathy however, the patient continues to have episodes of paranoia. Pat ient appears to be in benzodiazepine withdrawal. Patient has been treated with clonazepam 1 mg every 8 hours however, patient was not getting better and actually getting worse as the patient was now becoming more agitated with staff. Patient has as needed Benadryl and haloperidol ordered for increased agitation and this need to be given around 1420 this afternoon. We will continue to monitor. Psychiatry will continue to follow with the patient. 2. Hypertensive emergency, resolved. Systolic blood pressures were 2 oh 40 at their greatest. Patient's mental status has waxed and waned as her blood pressure is back in the normal range. 3. Diabetes mellitus. Sliding scale coverage 4. Hyperlipidemia. Continue atorvastatin. 5. Asthma. Continue inhalers. 6. Depression/anxiety. Patient will be treated with Klonopin for benzodiazepine withdrawal. DVT Prophylaxis: Mechanical Disposition: Patient will most likely need extended stay at detox facility for benzodiazepine withdrawal. VS,Fishbone, I+O VS, Fishbone, I+O Laboratory Tests 10/24/20 06:34 Vital Signs Date Time Temp Pulse Resp B/P (MAP) Pulse Ox O2 Delivery O2 Flow Rate FiO2 10/24/20 06:00 101 142/86 10/24/20 06:00 96.6 18 99 Room Air I&O- Last 24 Hours up to 6 AM 10/24/20 06:00 Intake Total 1530 ml Balance 1530 ml MARCIA GUADALUPE DO Oct 24, 2020 16:39
[2020-10-24 22:00] VITALS: BP 166/78
[2020-10-25 06:00] VITALS: BP 168/86
[2020-10-25 06:21] LABS: HEMATOCRIT 42.2 % (36.0-47.0); HEMOGLOBIN 14.2 g/dl (12.0-15.5); MEAN CORPUSCULAR HEMOGLOBIN 30.3 pg (27.0-33.0); MEAN CORPUSCULAR HGB CONC 33.6 g/dl (32.0-36.5); MEAN CORPUSCULAR VOLUME 90.2 fl (80.0-96.0); PLATELET COUNT, AUTOMATED 232 10^3/uL (150-450); RED BLOOD COUNT 4.68 10^6/uL (4.00-5.40); WHITE BLOOD COUNT 6.8 10^3/uL (4.0-10.0)
[2020-10-25 06:53] LABS: ALBUMIN 3.8 GM/DL (3.2-5.2); ALT/SGPT 81 U/L (12-78); BILIRUBIN,TOTAL 1.5 MG/DL (0.2-1.0); BLOOD UREA NITROGEN 9 MG/DL (7-18); CALCIUM LEVEL 9.6 MG/DL (8.8-10.2); CARBON DIOXIDE LEVEL 24 MEQ/L (21-32); CHLORIDE LEVEL 107 MEQ/L (98-107); CREATININE FOR GFR 0.69 MG/DL (0.55-1.30); GLOMERULAR FILTRATION RATE > 60.0 (>45); GLUCOSE, FASTING 147 MG/DL (70-100); MAGNESIUM LEVEL 2.2 MG/DL (1.8-2.4); POTASSIUM SERUM 3.9 MEQ/L (3.5-5.1); SODIUM LEVEL 139 MEQ/L (136-145); TOTAL PROTEIN 7.2 GM/DL (6.4-8.2)
[2020-10-25] MEDS: HumaLOG INSULIN (NovoLOG) PER UNIT SC SCH ×4 (08:21→20:36)
[2020-10-25] MEDS: ATORVASTATIN 20 MG TAB PO SCH (08:22)
[2020-10-25] MEDS: ASPIRIN 81MG ENTERIC TABLET PO SCH (08:22)
[2020-10-25] MEDS: SENNA 8.6 MG TAB (SENOKOT) PO SCH (08:22)
[2020-10-25] MEDS: DOCUSATE SODIUM 100MG CAPSULE PO SCH ×2 (08:22→20:38)
[2020-10-25] MEDS: FOLIC ACID 1 MG TAB PO SCH (08:22)
[2020-10-25] MEDS: FLUoxetine 20 MG CAP PO SCH (08:23)
[2020-10-25] MEDS: MULTIVITAMINS/MINERALS THERAP 1 TAB PO SCH (08:24)
[2020-10-25] MEDS: clonazePAM 1 MG TAB PO SCH ×5 (08:24→20:38)
--- NOTE | 2020-10-25 10:03 | MHCRPDOC ---
[facility] Consultation Consultation DATE OF CONSULTATION: 10/25/20 Saw the patient for follow-up. She had a very agitated episode yesterday and required Haldol and Benadryl injection to control the agitation. She appears in better control and contact this morning is able to recognize the MD and has fully cooperate with assessment. She stated that she really did not sleep last night, was awake most of the time and had a several episode of auditory hallucination and some visual illusions. She stated that she felt the presence of her ex- and also hearing noises and voices which were not there. She is not expressing any gross delusional ideas and appears to be much better organized and oriented this morning. She admits that she was taking 8 to 10 tablets of Ativan in September after she received prescription for 120 tablets but did not get any Klonopin prescription none she does not remember when was the last time she took Ativan. She understands that she was hallucinating occasionally since her admission but does not remember the episode yesterday when she was agitated and required injectable Haldol. She apparently refused to her Klonopin yesterday but this morning she understands the reason for that prescription and she agreed to cooperate and took Klonopin without any objection. I would recommend to continue Klonopin 1 mg 3 times a day until the delirium is under control and then will taper to half milligrams 3 times a day before discontinuing. CONSULTATION REQUESTED BY: REASON FOR CONSULTATION:. RELEVANT HISTORY:. PAST PSYCHIATRIC HISTORY: PAST MEDICAL HISTORY: FAMILY HISTORY: Mother: Father: Siblings: Children: PERSONAL AND SOCIAL HISTORY: The patient was born and raised in [place]. Resides in: [place] Marital Status: M Children: Employment: SUBSTANCE ABUSE HISTORY: Smoking: ETOH: Illicit Drugs: LEGAL HISTORY: . MENTAL STATUS EXAMINATION: Patient is a AGE-year old female, who is. Speech is. Language skills are. Thought processes including:. Thought content:. Abstract reasoning, and computation:. Description of associations:. Description of abnormal or psychotic thoughts:. Judgment:. Insight:. Orientation to. Recent and remote memory:. Attention span and concentration:. Language:. Fund of knowledge:. Mood:. Affect:. DIAGNOSIS: 1.. PLAN: 1.. 2.. Vital Signs Vital Signs Date Time Temp Pulse Resp B/P (MAP) Pulse Ox O2 Delivery O2 Flow Rate FiO2 10/25/20 08:23 148/94 10/25/20 06:00 98.4 78 18 99 Room Air Laboratory Data 24H Labs Laboratory Tests 2 10/24/20 11:58: Bedside Glucose (Misc Panel) 187H 10/24/20 16:31: Bedside Glucose (Misc Panel) 168H 10/24/20 22:04: Bedside Glucose (Misc Panel) 126H 10/25/20 06:02: Nucleated Red Blood Cells % (auto) 0.0, Anion Gap 8, Glomerular Filtration Rate > 60.0, Calcium Level 9.6, Magnesium Level 2.2, Total Bilirubin 1.5H, Aspartate Amino Transf (AST/SGOT) 45H, Alanine Aminotransferase (ALT/SGPT) 81H, Alkaline Phosphatase 95, Total Protein 7.2, Albumin 3.8, Albumin/Globulin Ratio 1.1L Home Medications Current Medications Current Medications Medications (Trade) Dose Ordered Sig/Natan Route PRN Reason Start Time Stop Time Status Last Admin Dose Admin Acetaminophen (Tylenol Tab) 650 mg Q4H PRN PO MILD PAIN or TEMP > 101 10/22/20 02:15 10/23/20 06:01 Al Hydrox/Mg Hydrox/Simethicone (Mylanta) 30 ml DAILY PRN PO DYSPEPSIA 10/22/20 02:15 Albuterol Sulfate (Proventil, Ventolin Hfa) 2 puff QID PRN INH SHORTNESS OF BREATH 10/22/20 02:25 Aspirin (Ecotrin) 81 mg DAILY PO 10/22/20 09:00 10/25/20 08:22 Atorvastatin Calcium (Lipitor) 20 mg DAILY PO 10/22/20 09:00 10/25/20 08:22 Clonazepam (KlonoPIN) 1 mg TID PO 10/24/20 09:00 10/24/20 22:05 Dextrose (Dextrose 50%) 25 ml ASDIRECTED PRN IV SEE LABEL COMMENTS 10/22/20 02:15 Diphenhydramine HCl (Benadryl) 50 mg Q6HP PRN IM AGITATION 10/24/20 14:15 10/24/20 14:20 Diphenhydramine HCl (Benadryl) 50 mg STAT STAT IM 10/24/20 14:05 10/24/20 14:11 DC Docusate Sodium (Colace) 100 mg BID PO 10/22/20 09:00 10/25/20 08:22 Fluoxetine HCl (PROzac) 40 mg DAILY PO 10/22/20 09:00 10/25/20 08:23 Folic Acid (Folic Acid) 1 mg DAILY PO 10/22/20 09:00 10/25/20 08:22 Glucagon (Glucagon) 1 mg ASDIRECTED PRN SC SEE LABEL COMMENTS 10/22/20 02:15 Glucose (Glucose) 16 GM ASDIRECTED PRN PO SEE LABEL COMMENTS 10/22/20 02:15 Haloperidol (Haldol) 5 mg Q8HP PRN IM AGITATION 10/24/20 14:15 10/24/20 14:20 Haloperidol (Haldol) 5 mg STAT STAT IM 10/24/20 14:05 10/24/20 14:11 DC Home Med (Home Med List Complete!) ASDIRECTED XX 10/22/20 02:20 10/22/20 02:43 DC Insulin Human Lispro (HumaLOG INSULIN) SEE PROTOCOL TABLE AC SC 10/22/20 07:30 10/25/20 08:21 Insulin Human Lispro (HumaLOG INSULIN) SEE PROTOCOL TABLE QHS SC 10/22/20 21:00 Labetalol HCl (Normodyne, Trandate) 20 mg Q5M IV 10/22/20 03:00 10/22/20 03:11 DC Lisinopril (Prinivil) 10 mg DAILY PO 10/22/20 09:00 10/25/20 08:23 Lorazepam (Ativan) 2 mg ASDIRECTED PRN IV SEE PROTOCOL 10/22/20 04:05 Lorazepam (Ativan) 2 mg ASDIRECTED PRN PO SEE PROTOCOL 10/22/20 02:15 10/22/20 04:08 DC Lorazepam (Ativan) 2 mg STAT STAT IV 10/22/20 02:11 10/22/20 02:17 DC 10/22/20 02:40 Magnesium Hydroxide (Milk Of Magnesia) 30 ml DAILY PRN PO CONSTIPATION 10/22/20 02:15 Multivitamins (Theragram-M) 1 tab DAILY PO 10/22/20 09:00 10/25/20 08:24 Oxazepam (Serax) 15 mg Q6H PO 10/23/20 20:00 10/24/20 09:37 DC 10/24/20 01:58 Oxazepam (Serax) 15 mg Q8H PO 10/23/20 14:00 10/23/20 15:07 DC 10/23/20 14:18 Oxazepam (Serax) 20 mg Q8H PO 10/22/20 06:00 10/23/20 10:06 DC 10/23/20 05:54 Senna (Senokot) 1 tab DAILY PO 10/22/20 09:00 10/25/20 08:22 Sodium Chloride ([place] Nasal [place]) 1 spray QID PRN NA NASAL DRYNESS 10/22/20 02:25 Thiamine HCl (Thiamine HCl) 100 mg BID PO 10/22/20 09:00 10/25/20 08:59 10/23/20 20:27 Scheduled Ascorbic Acid (Vitamin C) 500 Mg Tablet, 1,000 MG PO DAILY, (Reported) Aspirin (Aspirin EC) 81 Mg Tablet.dr, 81 MG PO DAILY, (Reported) Atorvastatin Calcium (Atorvastatin Calcium) 20 Mg Tablet, 20 MG PO DAILY, (Reported) Dulaglutide (Trulicity) 1.5 Mg/0.5 Ml Pen.injctr, 1.5 MG SC QWEEK, (Reported) Fluoxetine Hcl (Fluoxetine HCl) 20 Mg Capsule, 40 MG PO DAILY, (Reported) Lisinopril (Lisinopril) 10 Mg Tablet, 10 MG PO DAILY, (Reported) [place]-3 Fatty Acids/Fish Oil (Fish Oil 1,000 mg Capsule) 1 Each Capsule, 1,000 MG PO DAILY, (Reported) Sennosides (Senna) 8.6 Mg Tablet, 1 TAB PO DAILY, (Reported) Scheduled PRN Albuterol Sulfate (Proair Hfa) 8.5 Gm Hfa.aer.ad, 2 PUFF INH QID PRN for SHORTNESS OF BREATH, (Reported) Sodium Chloride (Saline Nasal [place]) 44 Ml [place], 1 SPRAY NA QID PRN for NASAL DRYNESS, (Reported) Trazodone HCl (Trazodone HCl) 50 Mg Tab, 50 MG PO QHS PRN for INSOMNIA, (Repo rted) Allergies Coded Allergies: iodine (Verified Allergy, Severe, anaphylaxis, 08/19/20) shellfish derived (Verified Allergy, Severe, anaphylaxis, 08/19/20) ADE MARTINEZ M.D. Oct 25, 2020 10:03
--- NOTE | 2020-10-25 12:02 | IPNPDOC ---
Text Note Date of Service The patient was seen on 10/25/20. NOTE Subjective: Patient is a 65-year-old female with past medical history of CVA, TIA, migraines, hyperlipidemia, hypertension, and type 2 diabetes who was brought to the emergency department by her son for evaluation of her altered mental status. Patient is most likely withdrawing from benzodiazepines as she was getting many of these outpatients in talking with her daughter, patient does have a history of benzodiazepine abuse who has been to rehab a few times for both alcohol and benzodiazepine abuse. Patient is feeling much better. Patient states she does not remember much of the day yesterday. Patient is more lucid today. Patient is feeling well otherwise. Review of systems: General: Patient denies fevers HEENT: Patient denies headaches Cardiovascular: Patient denies chest pain Respiratory: Patient denies shortness of breath, cough GI: Patient denies abdominal pain, nausea, vomiting, diarrhea : Patient denies increased frequency or pain with urination Extremities: Patient denies swelling or pain in extremities Neurological: Patient denies numbness or tingling in legs Physical exam: Vitals: See below General: Alert and oriented x3 female patient who was in the bathroom washing her hands when I walked in the room. Patient was able to walk without di fficulty to the bed and sat down. Patient was much more cooperative answering questions appropriately today. Patient did not appear to be in any acute distress. HEENT: Normocephalic, atraumatic, moist mucous membranes. Neck: No lymphadenopathy or thyromegaly Cardiac: Regular rate and rhythm, no murmurs, normal S1, normal S2 Pulm: Clear to auscultation bilaterally. No wheezes, rhonchi, rales Abd: Nondistended, nontender to palpation, normal bowel sounds Ext: No edema bilateral lower extremities Psych: Patient denies suicidal ideation. Patient is no longer hearing any voices. Labs: See below Imaging: No new imaging has been performed Assessment/plan: 65-year-old female with supposedly distant history of alcohol abuse with longstanding history of benzodiazepine abuse who presented to the hospital with altered mental status. 1. Altered mental status. This is secondary to benzodiazepine withdrawal. Patient is now on clonazepam 1 mg every 8 hours. Patient is more lucid today. Patient did require haloperidol and Benadryl yesterday intramuscularly in order to calm the patient down as she was going to hurt herself or somebody else she was walking around the unit was very difficult to control. Patient has not needed any more of these medications. These medications can be discontinued at this time. Psychiatry will continue to follow the patient. 2. Hypertensive emergency, resolved. Systolic blood pressures were greater than 240 at their greatest. Patient's mental status has waxed and waned as the blood pressure is back in the normal range. Blood pressure increases most likely due to benzodiazepine withdrawal. 3. Diabetes mellitus. Continue sliding scale coverage. 4. Hyperlipidemia. Continue atorvastatin. 5. Asthma. Continue inhalers. 6. Depression with anxiety. Patient will be treated with Klonopin for benzodiazepine withdrawal. DVT Prophylaxis: Mechanical in early ambulation Disposition: Patient will most likely need extended stay at detox facility for benzodiazepine withdrawal. I spoke with clinical discharge planning who will begin this process. VS,Maureen, I+O VS, Maureen, I+O Laboratory Tests 10/25/20 06:02 Vital Signs Date Time Temp Pulse Resp B/P (MAP) Pulse Ox O2 Delivery O2 Flow Rate FiO2 10/25/20 08:23 148/94 10/25/20 06:00 98.4 78 18 99 Room Air I&O- Last 24 Hours up to 6 AM 10/25/20 06:00 Intake Total 870 ml Output Total 0 ml Balance 870 ml MARCIA GUADALUPE DO Oct 25, 2020 12:02
[2020-10-25 14:00] VITALS: BP 174/96
[2020-10-25 20:50] VITALS: BP 188/84
[2020-10-25 21:17] VITALS: BP 164/100
[2020-10-25 22:01] VITALS: BP 138/78
[2020-10-26 06:00] VITALS: BP 162/82
[2020-10-26 06:31] LABS: HEMATOCRIT 44.4 % (36.0-47.0); HEMOGLOBIN 15.1 g/dl (12.0-15.5); MEAN CORPUSCULAR HEMOGLOBIN 30.6 pg (27.0-33.0); MEAN CORPUSCULAR VOLUME 89.9 fl (80.0-96.0); PLATELET COUNT, AUTOMATED 273 10^3/uL (150-450); RED BLOOD COUNT 4.94 10^6/uL (4.00-5.40); WHITE BLOOD COUNT 8.4 10^3/uL (4.0-10.0)
[2020-10-26 07:01] LABS: ALBUMIN 3.9 GM/DL (3.2-5.2); ALT/SGPT 82 U/L (12-78); BILIRUBIN,TOTAL 1.4 MG/DL (0.2-1.0); BLOOD UREA NITROGEN 10 MG/DL (7-18); CALCIUM LEVEL 9.5 MG/DL (8.8-10.2); CARBON DIOXIDE LEVEL 23 MEQ/L (21-32); CHLORIDE LEVEL 106 MEQ/L (98-107); CREATININE FOR GFR 0.69 MG/DL (0.55-1.30); GLOMERULAR FILTRATION RATE > 60.0 (>45); GLUCOSE, FASTING 138 MG/DL (70-100); SODIUM LEVEL 135 MEQ/L (136-145); TOTAL PROTEIN 8.1 GM/DL (6.4-8.2)
[2020-10-26 07:02] LABS: MAGNESIUM LEVEL 2.3 MG/DL (1.8-2.4)
[2020-10-26] MEDS: DOCUSATE SODIUM 100MG CAPSULE PO SCH ×2 (08:14→20:27)
[2020-10-26] MEDS: FOLIC ACID 1 MG TAB PO SCH (08:14)
[2020-10-26] MEDS: ASPIRIN 81MG ENTERIC TABLET PO SCH (08:14)
[2020-10-26] MEDS: FLUoxetine 20 MG CAP PO SCH (08:14)
[2020-10-26] MEDS: HumaLOG INSULIN (NovoLOG) PER UNIT SC SCH ×4 (08:14→19:17)
[2020-10-26] MEDS: MULTIVITAMINS/MINERALS THERAP 1 TAB PO SCH (08:15)
[2020-10-26] MEDS: ATORVASTATIN 20 MG TAB PO SCH (08:15)
[2020-10-26] MEDS: SENNA 8.6 MG TAB (SENOKOT) PO SCH (08:15)
[2020-10-26] MEDS: clonazePAM 1 MG TAB PO SCH ×3 (08:15→20:27)
--- NOTE | 2020-10-26 10:49 | MHCRPDOC ---
[facility] Consultation Consultation DATE OF CONSULTATION: 10/26/20 Saw the patient for follow-up evaluation. Patient is in good control but appears a little bit more preoccupied and perplexed. She appears slightly more confused today and thinks it is November and does not know the date. She also reports that she did not sleep last night and was hearing several different voices including one of her ex-. When further questioned patient stated that this type of problem started several months ago and she was having fairly frequent episodes of hearing voices and getting very scared and confused. She is denying any command hallucination and is not expressing any gross organized delusional thinking. She was in much better contact and control yesterday and her affect was more animated and appropriate yesterday but today her affect is more anxious with a moderately fearful nature. Her orientation is poor in regards to time and her memory is also poor to recent events. Considering that she showed marked improvement after the injection of Haldol and Benadryl I would like to recommend to give her Haldol 5 mg and Benadryl 50 mg orally at nighttime around 8 or 9 PM along with her current Klonopin. Depending on the response we can titrate Klonopin dose further down. I will follow. CONSULTATION REQUESTED BY: REASON FOR CONSULTATION: . RELEVANT HISTORY: . PAST PSYCHIATRIC HISTORY: PAST MEDICAL HISTORY: FAMILY HISTORY: Mother: Father: Siblings: Children: PERSONAL AND SOCIAL HISTORY: The patient was born and raised in [place]. Resides in: [place] Marital Status: M Children: Employment: SUBSTANCE ABUSE HISTORY: Smoking: ETOH: Illicit Drugs: LEGAL HISTORY: . MENTAL STATUS EXAMINATION: Patient is a [AGE]-year old female, who is . Speech is . Language skills are . Thought processes including: . Thought content: . Abstract reasoning, and computation: . Description of associations: . Description of abnormal or psychotic thoughts: . Judgment: . Insight: . Orientation to . Recent and remote memory: . Attention span and concentration: . Language: . Fund of knowledge: . Mood: . Affect: . DIAGNOSIS: 1. . PLAN: 1. . 2. . Vital Signs Vital Signs Date Time Temp Pulse Resp B/P (MAP) Pulse Ox O2 Delivery O2 Flow Rate FiO2 10/26/20 08:14 154/91 10/26/20 06:00 97.3 96 18 94 Room Air Laboratory Data 24H Labs Laboratory Tests 2 10/25/20 11:51: Bedside Glucose (Misc Panel) 128H 10/25/20 17:04: Bedside Glucose (Misc Panel) 144H 10/25/20 20:25: Bedside Glucose (Misc Panel) 122H 10/26/20 06:11: Nucleated Red Blood Cells % (auto) 0.0, Anion Gap 6L, Glomerular Filtration Rate > 60.0, Calcium Level 9.5, Magnesium Level 2.3, Total Bilirubin 1.4H, Aspartate Amino Transf (AST/SGOT) 46H, Alanine Aminotransferase (ALT/SGPT) 82H, Alkaline Phosphatase 91, Total Protein 8.1, Albumin 3.9, Albumin/Globulin Ratio 0.9L Home Medications Current Medications Current Medications Medications (Trade) Dose Ordered Sig/Natan Route PRN Reason Start Time Stop Time Status Last Admin Dose Admin Acetaminophen (Tylenol Tab) 650 mg Q4H PRN PO MILD PAIN or TEMP > 101 10/22/20 02:15 10/23/20 06:01 Al Hydrox/Mg Hydrox/Simethicone (Mylanta) 30 ml DAILY PRN PO DYSPEPSIA 10/22/20 02:15 Albuterol Sulfate (Proventil, Ventolin Hfa) 2 puff QID PRN INH SHORTNESS OF BREATH 10/22/20 02:25 Aspirin (Ecotrin) 81 mg DAILY PO 10/22/20 09:00 10/26/20 08:14 Atorvastatin Calcium (Lipitor) 20 mg DAILY PO 10/22/20 09:00 10/26/20 08:15 Clonazepam (KlonoPIN) 1 mg TID PO 10/24/20 09:00 10/26/20 08:15 Dextrose (Dextrose 50%) 25 ml ASDIRECTED PRN IV SEE LABEL COMMENTS 10/22/20 02:15 Diphenhydramine HCl (Benadryl) 50 mg Q6HP PRN IM AGITATION 10/24/20 14:15 10/24/20 14:20 Diphenhydramine HCl (Benadryl) 50 mg STAT STAT IM 10/24/20 14:05 10/24/20 14:11 DC Docusate Sodium (Colace) 100 mg BID PO 10/22/20 09:00 10/26/20 08:14 Fluoxetine HCl (PROzac) 40 mg DAILY PO 10/22/20 09:00 10/26/20 08:14 Folic Acid (Folic Acid) 1 mg DAILY PO 10/22/20 09:00 10/26/20 08:14 Glucagon (Glucagon) 1 mg ASDIRECTED PRN SC SEE LABEL COMMENTS 10/22/20 02:15 Glucose (Glucose) 16 GM ASDIRECTED PRN PO SEE LABEL COMMENTS 10/22/20 02:15 Haloperidol (Haldol) 5 mg Q8HP PRN IM AGITATION 10/24/20 14:15 10/24/20 14:20 Haloperidol (Haldol) 5 mg STAT STAT IM 10/24/20 14:05 10/24/20 14:11 DC Home Med (Home Med List Complete!) ASDIRECTED XX 10/22/20 02:20 10/22/20 02:43 DC Insulin Human Lispro (HumaLOG INSULIN) SEE PROTOCOL TABLE AC SC 10/22/20 07:30 10/26/20 08:14 Insulin Human Lispro (HumaLOG INSULIN) SEE PROTOCOL TABLE QHS SC 10/22/20 21:00 Labetalol HCl (Normodyne, Trandate) 20 mg Q5M IV 10/22/20 03:00 10/22/20 03:11 DC Lisinopril (Prinivil) 10 mg DAILY PO 10/22/20 09:00 10/26/20 08:14 Lorazepam (Ativan) 2 mg ASDIRECTED PRN IV SEE PROTOCOL 10/22/20 04:05 Cancel Lorazepam (Ativan) 2 mg ASDIRECTED PRN PO SEE PROTOCOL 10/22/20 02:15 10/22/20 04:08 DC Lorazepam (Ativan) 2 mg STAT STAT IV 10/22/20 02:11 10/22/20 02:17 DC 10/22/20 02:40 Magnesium Hydroxide (Milk Of Magnesia) 30 ml DAILY PRN PO CONSTIPATION 10/22/20 02:15 Multivitamins (Theragram-M) 1 tab DAILY PO 10/22/20 09:00 10/26/20 08:15 Oxazepam (Serax) 15 mg Q6H PO 10/23/20 20:00 10/24/20 09:37 DC 10/24/20 01:58 Oxazepam (Serax) 15 mg Q8H PO 10/23/20 14:00 10/23/20 15:07 DC 10/23/20 14:18 Oxazepam (Serax) 20 mg Q8H PO 10/22/20 06:00 10/23/20 10:06 DC 10/23/20 05:54 Senna (Senokot) 1 tab DAILY PO 10/22/20 09:00 10/26/20 08:15 Sodium Chloride ([place] Nasal [place]) 1 spray QID PRN NA NASAL DRYNESS 10/22/20 02:25 Thiamine HCl (Thiamine HCl) 100 mg BID PO 10/22/20 09:00 10/25/20 08:59 DC 10/23/20 20:27 Scheduled Ascorbic Acid (Vitamin C) 500 Mg Tablet, 1,000 MG PO DAILY, (Reported) Aspirin (Aspirin EC) 81 Mg Tablet.dr, 81 MG PO DAILY, (Reported) Atorvastatin Calcium (Atorvastatin Calcium) 20 Mg Tablet, 20 MG PO DAILY, (Reported) Dulaglutide (Trulicity) 1.5 Mg/0.5 Ml Pen.injctr, 1.5 MG SC QWEEK, (Reported) Fluoxetine Hcl (Fluoxetine HCl) 20 Mg Capsule, 40 MG PO DAILY, (Reported) Lisinopril (Lisinopril) 10 Mg Tablet, 10 MG PO DAILY, (Reported) [place]-3 Fatty Acids/Fish Oil (Fish Oil 1,000 mg Capsule) 1 Each Capsule, 1,000 MG PO DAILY, (Reported) Sennosides (Senna) 8.6 Mg Tablet, 1 TAB PO DAILY, (Reported) Scheduled PRN Albuterol Sulfate (Proair Hfa) 8.5 Gm Hfa.aer.ad, 2 PUFF INH QID PRN for SHORTNESS OF BREATH, (Reported) Sodium Chloride (Saline Nasal [place]) 44 Ml [place], 1 SPRAY NA QID PRN for NASAL DRYNESS, (Reported) Trazodone HCl (Trazodone HCl) 50 Mg Tab, 50 MG PO QHS PRN for INSOMNIA, (Reported) Allergies Coded Allergies: iodine (Verified Allergy, Severe, anaphylaxis, 08/19/20) shellfish derived (Verified Allergy, Severe, anaphylaxis, 08/19/20) ADE MARTINEZ M.D. Oct 26, 2020 10:49
[2020-10-26 14:00] VITALS: BP 134/76
[2020-10-26 16:29] VITALS: BP 132/76
--- NOTE | 2020-10-26 18:37 | IPNPDOC ---
Text Note Date of Service The patient was seen on 10/26/20. NOTE Subjective: No any acute events overnight. Patient was alert and oriented in the morning Objective: GENERAL APPEARANCE: NAD HEENT: no scleral icterus, no JVD, EOMI CARDIOVASCULAR: S1S2 LUNGS: CTA ABDOMEN: soft & not tender w palpation MUSCULOSKELETAL: no cyanosis, no swelling INTEGUMENT: no generalized pallor NEUROLOGICAL: cranial nerve function from 2-12 intact, follows commands, speech not dysarthric Assessment plan Patient is 65 years old female with past medical history of EtOH abuse and benzodiazepine abuse presented to the hospital with altered mental status Metabolic encephalopathy Improved today Most likely secondary to benzodiazepine withdrawal Continue clonazepam and Benadryl according to psych recommendation Haldol nightly Hypertensive emergency Resolved Blood pressure under control Continue lisinopril Type 2 diabetes Insulin sliding scale Glucose level under control Hyperlipidemia Continue statin Asthma Continue inhalers Not in acute exacerbation Depression and anxiety Continue Klonopin for now VS,Fishbone, I+O VS, Fishbone, I+O Laboratory Tests 10/26/20 06:11 Vital Signs Date Time Temp Pulse Resp B/P (MAP) Pulse Ox O2 Delivery O2 Flow Rate FiO2 10/26/20 16:29 82 132/76 (94) 10/26/20 14:00 98.4 17 95 Room Air LIVIA SHANKAR DO Oct 26, 2020 18:37
[2020-10-26] MEDS: diphenhydrAMINE 50MG CAP PO SCH (20:27)
[2020-10-26] MEDS: haloperidoL 5 MG TAB PO SCH (20:27)
[2020-10-26] MEDS: HEPARIN SOD (PORCINE) 5000UNITS/ML 1ML VIAL/SYRINGE SQ SCH (20:28)
[2020-10-26 20:46] VITALS: O2SAT 94
[2020-10-26 22:00] VITALS: BP 134/76
[2020-10-27 06:00] VITALS: BP 140/78
[2020-10-27 06:32] LABS: HEMOGLOBIN 14.2 g/dl (12.0-15.5); MEAN CORPUSCULAR HEMOGLOBIN 30.3 pg (27.0-33.0); MEAN CORPUSCULAR VOLUME 91.9 fl (80.0-96.0); PLATELET COUNT, AUTOMATED 229 10^3/uL (150-450); RED BLOOD COUNT 4.68 10^6/uL (4.00-5.40); WHITE BLOOD COUNT 6.2 10^3/uL (4.0-10.0)
[2020-10-27 06:55] LABS: ALBUMIN 3.5 GM/DL (3.2-5.2); ALT/SGPT 73 U/L (12-78); BILIRUBIN,TOTAL 1.2 MG/DL (0.2-1.0); BLOOD UREA NITROGEN 17 MG/DL (7-18); CALCIUM LEVEL 9.5 MG/DL (8.8-10.2); CARBON DIOXIDE LEVEL 26 MEQ/L (21-32); CHLORIDE LEVEL 108 MEQ/L (98-107); CREATININE FOR GFR 0.77 MG/DL (0.55-1.30); GLOMERULAR FILTRATION RATE > 60.0 (>45); GLUCOSE, FASTING 133 MG/DL (70-100); MAGNESIUM LEVEL 2.2 MG/DL (1.8-2.4); SODIUM LEVEL 140 MEQ/L (136-145); TOTAL PROTEIN 6.8 GM/DL (6.4-8.2)
[2020-10-27] MEDS: SENNA 8.6 MG TAB (SENOKOT) PO SCH (08:01)
[2020-10-27] MEDS: HEPARIN SOD (PORCINE) 5000UNITS/ML 1ML VIAL/SYRINGE SQ SCH ×2 (08:01→21:13)
[2020-10-27] MEDS: FOLIC ACID 1 MG TAB PO SCH (08:01)
[2020-10-27] MEDS: FLUoxetine 20 MG CAP PO SCH (08:01)
[2020-10-27] MEDS: ATORVASTATIN 20 MG TAB PO SCH (08:01)
[2020-10-27] MEDS: clonazePAM 1 MG TAB PO SCH ×2 (08:01→16:04)
[2020-10-27] MEDS: MULTIVITAMINS/MINERALS THERAP 1 TAB PO SCH (08:01)
[2020-10-27] MEDS: DOCUSATE SODIUM 100MG CAPSULE PO SCH ×2 (08:01→21:13)
[2020-10-27] MEDS: ASPIRIN 81MG ENTERIC TABLET PO SCH (08:01)
[2020-10-27] MEDS: HumaLOG INSULIN (NovoLOG) PER UNIT SC SCH ×4 (08:02→19:19)
[2020-10-27 14:00] VITALS: BP 135/78
--- NOTE | 2020-10-27 17:19 | IPNPDOC ---
Text Note Date of Service The patient was seen on 10/27/20. NOTE Subjective: No any acute events overnight. Patient mental status markedly im proved, she is alert, awake and oriented Objective: GENERAL APPEARANCE: NAD HEENT: no scleral icterus, no JVD, EOMI CARDIOVASCULAR: S1S2 LUNGS: CTA ABDOMEN: soft & not tender w palpation MUSCULOSKELETAL: no cyanosis, no swelling INTEGUMENT: no generalized pallor NEUROLOGICAL: cranial nerve function from 2-12 intact, follows commands, speech not dysarthric Assessment plan Patient is 65 years old female with past medical history of EtOH abuse and benzodiazepine abuse presented to the hospital with altered mental status Metabolic encephalopathy Resolved Most likely secondary to benzodiazepine withdrawal Continue clonazepam and Benadryl according to psych recommendation. We will titrate it down today Haldol nightly Hypertensive emergency Resolved Blood pressure under control Continue lisinopril Type 2 diabetes Insulin sliding scale Glucose level under control Hyperlipidemia Continue statin Asthma Continue inhalers Not in acute exacerbation Depression and anxiety Continue Klonopin for now VS,Fishbone, I+O VS, Fishbone, I+O Laboratory Tests 10/27/20 06:12 Vital Signs Date Time Temp Pulse Resp B/P (MAP) Pulse Ox O2 Delivery O2 Flow Rate FiO2 10/27/20 14:00 97.3 79 17 135/78 (97) 95 Room Air I&O- Last 24 Hours up to 6 AM 10/27/20 06:00 Intake Total 1980 ml Output Total 150 ml Balance 1830 ml LIVIA SHANKAR DO Oct 27, 2020 17:19
[2020-10-27] MEDS ORDERED: clonazePAM 0.5 MG TAB PO SCH (21:00)
[2020-10-27] MEDS: haloperidoL 5 MG TAB PO SCH (21:12)
[2020-10-27] MEDS: diphenhydrAMINE 50MG CAP PO SCH (21:13)
[2020-10-27 21:20] VITALS: O2SAT 93
[2020-10-27 22:00] VITALS: BP 132/78
[2020-10-28 06:00] VITALS: BP 122/77
[2020-10-28 06:38] LABS: HEMATOCRIT 40.6 % (36.0-47.0); HEMOGLOBIN 13.5 g/dl (12.0-15.5); MEAN CORPUSCULAR HEMOGLOBIN 30.3 pg (27.0-33.0); MEAN CORPUSCULAR HGB CONC 33.3 g/dl (32.0-36.5); MEAN CORPUSCULAR VOLUME 91.2 fl (80.0-96.0); PLATELET COUNT, AUTOMATED 234 10^3/uL (150-450); RED BLOOD COUNT 4.45 10^6/uL (4.00-5.40); WHITE BLOOD COUNT 6.4 10^3/uL (4.0-10.0)
[2020-10-28 06:58] LABS: ALBUMIN 3.5 GM/DL (3.2-5.2); ALT/SGPT 68 U/L (12-78); BILIRUBIN,TOTAL 0.8 MG/DL (0.2-1.0); BLOOD UREA NITROGEN 16 MG/DL (7-18); CALCIUM LEVEL 9.5 MG/DL (8.8-10.2); CARBON DIOXIDE LEVEL 26 MEQ/L (21-32); CHLORIDE LEVEL 106 MEQ/L (98-107); CREATININE FOR GFR 0.69 MG/DL (0.55-1.30); GLOMERULAR FILTRATION RATE > 60.0 (>45); GLUCOSE, FASTING 111 MG/DL (70-100); MAGNESIUM LEVEL 2.3 MG/DL (1.8-2.4); POTASSIUM SERUM 4.2 MEQ/L (3.5-5.1); SODIUM LEVEL 139 MEQ/L (136-145); TOTAL PROTEIN 6.7 GM/DL (6.4-8.2)
[2020-10-28] MEDS: HumaLOG INSULIN (NovoLOG) PER UNIT SC SCH ×4 (07:30→19:53)
[2020-10-28] MEDS: HEPARIN SOD (PORCINE) 5000UNITS/ML 1ML VIAL/SYRINGE SQ SCH ×2 (08:54→20:52)
[2020-10-28] MEDS: clonazePAM 0.5 MG TAB PO SCH ×2 (08:55→20:52)
[2020-10-28] MEDS: DOCUSATE SODIUM 100MG CAPSULE PO SCH ×2 (08:55→20:52)
[2020-10-28] MEDS: MULTIVITAMINS/MINERALS THERAP 1 TAB PO SCH (08:55)
[2020-10-28] MEDS: FLUoxetine 20 MG CAP PO SCH (08:55)
[2020-10-28] MEDS: FOLIC ACID 1 MG TAB PO SCH (08:55)
[2020-10-28] MEDS: ASPIRIN 81MG ENTERIC TABLET PO SCH (08:55)
[2020-10-28] MEDS: SENNA 8.6 MG TAB (SENOKOT) PO SCH (08:56)
[2020-10-28] MEDS: ATORVASTATIN 20 MG TAB PO SCH (08:56)
--- NOTE | 2020-10-28 09:26 | MHCRPDOC ---
[facility] Consultation Consultation DATE OF CONSULTATION: 10/28/20 Saw the patient for follow-up consult. The patient is doing much better with the Haldol 5 mg and Benadryl 50 mg at bedtime and reports that she did not have any auditory hallucination last night and does not feel so confused to paranoid anymore. She is cooperating with oral medications and her Klonopin is decreased to 0.5 mg 3 times a day and she is not showing any acute withdrawal symptoms. She is oriented to time and is able to recognize the MD and able to carry on a fairly relevant conversation. She is fully aware of the medications she is taking and the reason for that and shows good deal of insight. Vital signs are stable and she has no new complaints and denies any serious depression or suicidal thoughts. I will not be seeing this patient anymore because of my [place] assignment will be over tomorrow. I will sign off and if there is any further need for consultation please call the psychiatrist director of elementary education. The final recommendation is that the patient to be continued on Haldol and Benadryl tomorrow night and then discontinue and replace it with risperidone 2 mg at bedtime for maintenance dose for the next 2 to 4 weeks. Klonopin 0.5 mg 3 times a day also can be discontinued if she is not showing any more withdrawal symptoms within the next week. 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 CONSULTATION REQUESTED BY: REASON FOR CONSULTATION: . RELEVANT HISTORY: . PAST PSYCHIATRIC HISTORY: PAST MEDICAL HISTORY: FAMILY HISTORY: Mother: Father: Siblings: Children: PERSONAL AND SOCIAL HISTORY: The patient was born and raised in [place]. Resides in: [place] Marital Status: M Children: Employment: SUBSTANCE ABUSE HISTORY: Smoking: ETOH: Illicit Drugs: LEGAL HISTORY: . MENTAL STATUS EXAMINATION: Patient is a [AGE]-year old female, who is . Speech is . Language skills are . Thought processes including: . Thought content: . Abstract reasoning, and computation: . Description of associations: . Description of abnormal or psychotic thoughts: . Judgment: . Insight: . Orientation to . Recent and remote memory: . Attention span and concentration: . Language: . Fund of knowledge: . Mood: . Affect: . DIAGNOSIS: 1. . PLAN: 1. . 2. . Vital Signs Vital Signs Date Time Temp Pulse Resp B/P (MAP) Pulse Ox O2 Delivery O2 Flow Rate FiO2 10/28/20 08:56 136/74 10/28/20 06:00 97.7 71 14 93 Room Air Laboratory Data 24H Labs Laboratory Tests 2 10/27/20 11:29: Bedside Glucose (Misc Panel) 114 10/27/20 16:22: Bedside Glucose (Misc Panel) 89 10/27/20 19:17: Bedside Glucose (Misc Panel) 149H 10/28/20 06:05: Nucleated Red Blood Cells % (auto) 0.0, Anion Gap 7L, Glomerular Filtration Rate > 60.0, Calcium Level 9.5, Magnesium Level 2.3, Total Bilirubin 0.8, Aspartate Amino Transf (AST/SGOT) 34, Alanine Aminotransferase (ALT/SGPT) 68, Alkaline Phosphatase 88, Total Protein 6.7, Albumin 3.5, Albumin/Globulin Ratio 1.1L Home Medications Current Medications Current Medications Medications (Trade) Dose Ordered Sig/Natan Route PRN Reason Start Time Stop Time Status Last Admin Dose Admin Acetaminophen (Tylenol Tab) 650 mg Q4H PRN PO MILD PAIN or TEMP > 101 10/22/20 02:15 10/23/20 06:01 Al Hydrox/Mg Hydrox/Simethicone (Mylanta) 30 ml DAILY PRN PO DYSPEPSIA 10/22/20 02:15 10/28/20 01:18 Albuterol Sulfate (Proventil, Ventolin Hfa) 2 puff QID PRN INH SHORTNESS OF BREATH 10/22/20 02:25 Aspirin (Ecotrin) 81 mg DAILY PO 10/22/20 09:00 10/28/20 08:55 Atorvastatin Calcium (Lipitor) 20 mg DAILY PO 10/22/20 09:00 10/28/20 08:56 Clonazepam (KlonoPIN) 0.5 mg BID PO 10/28/20 09:00 10/28/20 08:55 Clonazepam (KlonoPIN) 0.5 mg TID PO 10/27/20 21:00 10/28/20 08:22 DC 10/27/20 21:12 Clonazepam (KlonoPIN) 1 mg TID PO 10/24/20 09:00 10/27/20 17:20 DC 10/27/20 16:04 Dextrose (Dextrose 50%) 25 ml ASDIRECTED PRN IV SEE LABEL COMMENTS 10/22/20 02:15 Diphenhydramine HCl (Benadryl) 50 mg Q6HP PRN IM AGITATION 10/24/20 14:15 10/24/20 14:20 Diphenhydramine HCl (Benadryl) 50 mg QHS PO 10/26/20 21:00 10/27/20 21:13 Diphenhydramine HCl (Benadryl) 50 mg STAT STAT IM 10/24/20 14:05 10/24/20 14:11 DC Docusate Sodium (Colace) 100 mg BID PO 10/22/20 09:00 10/28/20 08:55 Fluoxetine HCl (PROzac) 40 mg DAILY PO 10/22/20 09:00 10/28/20 08:55 Folic Acid (Folic Acid) 1 mg DAILY PO 10/22/20 09:00 10/28/20 08:55 Glucagon (Glucagon) 1 mg ASDIRECTED PRN SC SEE LABEL COMMENTS 10/22/20 02:15 Glucose (Glucose) 16 GM ASDIRECTED PRN PO SEE LABEL COMMENTS 10/22/20 02:15 Haloperidol (Haldol) 5 mg Q8HP PRN IM AGITATION 10/24/20 14:15 10/24/20 14:20 Haloperidol (Haldol) 5 mg QHS PO 10/26/20 21:00 10/27/20 21:12 Haloperidol (Haldol) 5 mg STAT STAT IM 10/24/20 14:05 10/24/20 14:11 DC Heparin Sodium (Porcine) (Heparin) 5,000 units BID SQ 10/26/20 21:00 10/28/20 08:54 Home Med (Home Med List Complete!) ASDIRECTED XX 10/22/20 02:20 10/22/20 02:43 DC Insulin Human Lispro (HumaLOG INSULIN) SEE PROTOCOL TABLE AC SC 10/22/20 07:30 10/27/20 08:02 Insulin Human Lispro (HumaLOG INSULIN) SEE PROTOCOL TABLE QHS SC 10/22/20 21:00 Labetalol HCl (Normodyne, Trandate) 20 mg Q5M IV 10/22/20 03:00 10/22/20 03:11 DC Lisinopril (Prinivil) 10 mg DAILY PO 10/22/20 09:00 10/28/20 08:56 Lorazepam (Ativan) 2 mg ASDIRECTED PRN IV SEE PROTOCOL 10/22/20 04:05 Cancel Lorazepam (Ativan) 2 mg ASDIRECTED PRN PO SEE PROTOCOL 10/22/20 02:15 10/22/20 04:08 DC Lorazepam (Ativan) 2 mg STAT STAT IV 10/22/20 02:11 10/22/20 02:17 DC 10/22/20 02:40 Magnesium Hydroxide (Milk Of Magnesia) 30 ml DAILY PRN PO CONSTIPATION 10/22/20 02:15 Multivitamins (Theragram-M) 1 tab DAILY PO 10/22/20 09:00 10/28/20 08:55 Oxazepam (Serax) 15 mg Q6H PO 10/23/20 20:00 10/24/20 09:37 DC 10/24/20 01:58 Oxazepam (Serax) 15 mg Q8H PO 10/23/20 14:00 10/23/20 15:07 DC 10/23/20 14:18 Oxazepam (Serax) 20 mg Q8H PO 10/22/20 06:00 10/23/20 10:06 DC 10/23/20 05:54 Senna (Senokot) 1 tab DAILY PO 10/22/20 09:00 10/28/20 08:56 Sodium Chloride ([place] Nasal [place]) 1 spray QID PRN NA NASAL DRYNESS 10/22/20 02:25 Thiamine HCl (Thiamine HCl) 100 mg BID PO 10/22/20 09:00 10/25/20 08:59 DC 10/23/20 20:27 Scheduled Ascorbic Acid (Vitamin C) 500 Mg Tablet, 1,000 MG PO DAILY, (Reported) Aspirin (Aspirin EC) 81 Mg Tablet.dr, 81 MG PO DAILY, (Reported) Atorvastatin Calcium (Atorvastatin Calcium) 20 Mg Tablet, 20 MG PO DAILY, (Reported) Dulaglutide (Trulicity) 1.5 Mg/0.5 Ml Pen.injctr, 1.5 MG SC QWEEK, (Reported) Fluoxetine Hcl (Fluoxetine HCl) 20 Mg Capsule, 40 MG PO DAILY, (Reported) Lisinopril (Lisinopril) 10 Mg Tablet, 10 MG PO DAILY, (Reported) [place]-3 Fatty Acids/Fish Oil (Fish Oil 1,000 mg Capsule) 1 Each Capsule, 1,000 MG PO DAILY, (Reported) Sennosides (Senna) 8.6 Mg Tablet, 1 TAB PO DAILY, (Reported) Scheduled PRN Albuterol Sulfate (Proair Hfa) 8.5 Gm Hfa.aer.ad, 2 PUFF INH QID PRN for SHOR TNESS OF BREATH, (Reported) Sodium Chloride (Saline Nasal [place]) 44 Ml [place], 1 SPRAY NA QID PRN for NASAL DRYNESS, (Reported) Trazodone HCl (Trazodone HCl) 50 Mg Tab, 50 MG PO QHS PRN for INSOMNIA, (Reported) Allergies Coded Allergies: iodine (Verified Allergy, Severe, anaphylaxis, 08/19/20) shellfish derived (Verified Allergy, Severe, anaphylaxis, 08/19/20) ADE MARTINEZ M.D. Oct 28, 2020 09:26
[2020-10-28 14:00] VITALS: BP 127/75
--- NOTE | 2020-10-28 18:01 | IPNPDOC ---
Text Note Date of Service The patient was seen on 10/28/20. NOTE Subjective: No any acute events overnight. Patient denied any visual halluci nations, she is alert and oriented Objective: GENERAL APPEARANCE: NAD HEENT: no scleral icterus, no JVD, EOMI CARDIOVASCULAR: S1S2 LUNGS: CTA ABDOMEN: soft & not tender w palpation MUSCULOSKELETAL: no cyanosis, no swelling INTEGUMENT: no generalized pallor NEUROLOGICAL: cranial nerve function from 2-12 intact, follows commands, speech not dysarthric Assessment plan Patient is 65 years old female with past medical history of EtOH abuse and benzodiazepine abuse presented to the hospital with altered mental status Metabolic encephalopathy Resolved Most likely secondary to benzodiazepine withdrawal According to psych recommendation continue Haldol and Benadryl for tomorrow night and then discontinue and replace it with risperidone 2 mg at bedtime for maintenance dose for the next 2 to 4 weeks. Continue to titrate down Klonopin Hypertensive emergency Resolved Blood pressure under control Continue lisinopril Type 2 diabetes Insulin sliding scale Glucose level under control Hyperlipidemia Continue statin Asthma Continue inhalers Not in acute exacerbation Depression and anxiety Continue Klonopin for now with titration VS,Fishbone, I+O VS, Fishbone, I+O Laboratory Tests 10/28/20 06:05 Vital Signs Date Time Temp Pulse Resp B/P (MAP) Pulse Ox O2 Delivery O2 Flow Rate FiO2 10/28/20 14:00 97.9 79 16 127/75 (92) 97 Room Air l I&O- Last 24 Hours up to 6 AM 10/28/20 06:00 Intake Total 2590 ml Output Total 300 ml Balance 2290 ml LIVIA SHANKAR DO Oct 28, 2020 18:01
[2020-10-28] MEDS: diphenhydrAMINE 50MG CAP PO SCH (20:52)
[2020-10-28] MEDS: haloperidoL 5 MG TAB PO SCH (20:52)
[2020-10-28 21:06] VITALS: BP 128/74
[2020-10-28] MEDS: ACETAMINOPHEN TAB 650MG DOSE (2X325MG) PO PRN (22:44)
[2020-10-29 06:11] LABS: HEMATOCRIT 38.7 % (36.0-47.0); HEMOGLOBIN 12.9 g/dl (12.0-15.5); MEAN CORPUSCULAR HEMOGLOBIN 30.4 pg (27.0-33.0); MEAN CORPUSCULAR HGB CONC 33.3 g/dl (32.0-36.5); MEAN CORPUSCULAR VOLUME 91.1 fl (80.0-96.0); PLATELET COUNT, AUTOMATED 224 10^3/uL (150-450); RED BLOOD COUNT 4.25 10^6/uL (4.00-5.40); WHITE BLOOD COUNT 5.1 10^3/uL (4.0-10.0)
[2020-10-29 06:22] VITALS: BP 123/66
[2020-10-29 06:45] LABS: ALBUMIN 3.3 GM/DL (3.2-5.2); ALT/SGPT 91 U/L (12-78); BILIRUBIN,TOTAL 0.5 MG/DL (0.2-1.0); BLOOD UREA NITROGEN 17 MG/DL (7-18); CALCIUM LEVEL 9.1 MG/DL (8.8-10.2); CARBON DIOXIDE LEVEL 28 MEQ/L (21-32); CHLORIDE LEVEL 108 MEQ/L (98-107); CREATININE FOR GFR 0.66 MG/DL (0.55-1.30); GLOMERULAR FILTRATION RATE > 60.0 (>45); GLUCOSE, FASTING 118 MG/DL (70-100); MAGNESIUM LEVEL 2.3 MG/DL (1.8-2.4); POTASSIUM SERUM 4.6 MEQ/L (3.5-5.1); SODIUM LEVEL 141 MEQ/L (136-145); TOTAL PROTEIN 6.3 GM/DL (6.4-8.2)
[2020-10-29] MEDS: clonazePAM 0.5 MG TAB PO SCH ×2 (09:05→21:04)
[2020-10-29] MEDS: SENNA 8.6 MG TAB (SENOKOT) PO SCH (09:05)
[2020-10-29] MEDS: FLUoxetine 20 MG CAP PO SCH (09:05)
[2020-10-29] MEDS: HEPARIN SOD (PORCINE) 5000UNITS/ML 1ML VIAL/SYRINGE SQ SCH ×2 (09:06→21:04)
[2020-10-29] MEDS: HumaLOG INSULIN (NovoLOG) PER UNIT SC SCH ×4 (09:06→20:59)
[2020-10-29] MEDS: ASPIRIN 81MG ENTERIC TABLET PO SCH (09:06)
[2020-10-29] MEDS: FOLIC ACID 1 MG TAB PO SCH (09:06)
[2020-10-29] MEDS: DOCUSATE SODIUM 100MG CAPSULE PO SCH ×2 (09:06→21:04)
[2020-10-29] MEDS: MULTIVITAMINS/MINERALS THERAP 1 TAB PO SCH (09:06)
[2020-10-29] MEDS: ATORVASTATIN 20 MG TAB PO SCH (09:06)
[2020-10-29 14:00] VITALS: BP 120/68
--- NOTE | 2020-10-29 17:49 | IPNPDOC ---
Text Note Date of Service The patient was seen on 10/29/20. NOTE Subjective: No any acute events overnight. Objective: GENERAL APPEARANCE: NAD HEENT: no scleral icterus, no JVD, EOMI CARDIOVASCULAR: S1S2 LUNGS: CTA ABDOMEN: soft & not tender w palpation MUSCULOSKELETAL: no cyanosis, no swelling INTEGUMENT: no generalized pallor NEUROLOGICAL: cranial nerve function from 2-12 intact, follows commands, speech not dysarthric Assessment plan Patient is 65 years old female with past medical history of EtOH abuse and benzodiazepine abuse presented to the hospital with altered mental status Metabolic encephalopathy Resolved Most likely secondary to benzodiazepine withdrawal We will start risperidone 2 mg at bedtime for maintenance dose for the next 2 to 4 weeks. Continue Klonopin 0.5 twice daily Hypertensive emergency Resolved Blood pressure under control Continue lisinopril Type 2 diabetes Insulin sliding scale Glucose level under control Hyperlipidemia Continue statin Asthma Continue inhalers Not in acute exacerbation Depression and anxiety Continue Klonopin for now with titration VS,Fishbone, I+O VS, Fishbone, I+O Laboratory Tests 10/29/20 05:42 Vital Signs Date Time Temp Pulse Resp B/P (MAP) Pulse Ox O2 Delivery O2 Flow Rate FiO2 10/29/20 14:00 98.2 72 18 120/68 (85) 97 Room Air I&O- Last 24 Hours up to 6 AM 10/29/20 05:59 Intake Total 720 ml Output Total 150 ml Balance 570 ml LIVIA SHANKAR DO Oct 29, 2020 17:49
[2020-10-29] MEDS: ACETAMINOPHEN TAB 650MG DOSE (2X325MG) PO PRN (21:05)
[2020-10-29] MEDS: risperiDONE 2 MG TAB PO SCH (21:06)
[2020-10-29 22:00] VITALS: BP 111/59
[2020-10-30 06:00] VITALS: BP 128/70
[2020-10-30] MEDS: DOCUSATE SODIUM 100MG CAPSULE PO SCH ×2 (09:08→20:39)
[2020-10-30] MEDS: clonazePAM 0.5 MG TAB PO SCH (09:08)
[2020-10-30] MEDS: SENNA 8.6 MG TAB (SENOKOT) PO SCH (09:08)
[2020-10-30] MEDS: FLUoxetine 20 MG CAP PO SCH (09:08)
[2020-10-30] MEDS: ATORVASTATIN 20 MG TAB PO SCH (09:08)
[2020-10-30] MEDS: FOLIC ACID 1 MG TAB PO SCH (09:08)
[2020-10-30] MEDS: HEPARIN SOD (PORCINE) 5000UNITS/ML 1ML VIAL/SYRINGE SQ SCH ×2 (09:09→20:39)
[2020-10-30] MEDS: ASPIRIN 81MG ENTERIC TABLET PO SCH (09:09)
[2020-10-30] MEDS: MULTIVITAMINS/MINERALS THERAP 1 TAB PO SCH (09:09)
[2020-10-30] MEDS: HumaLOG INSULIN (NovoLOG) PER UNIT SC SCH ×4 (09:12→20:39)
--- NOTE | 2020-10-30 13:58 | IPNPDOC ---
Text Note Date of Service The patient was seen on 10/30/20. NOTE Subjective: No any acute events overnight. Objective: GENERAL APPEARANCE: NAD HEENT: no scleral icterus, no JVD, EOMI CARDIOVASCULAR: S1S2 LUNGS: CTA ABDOMEN: soft & not tender w palpation MUSCULOSKELETAL: no cyanosis, no swelling INTEGUMENT: no generalized pallor NEUROLOGICAL: cranial nerve function from 2-12 intact, follows commands, speech not dysarthric Assessment plan Patient is 65 years old female with past medical history of EtOH abuse and benzodiazepine abuse presented to the hospital with altered mental status Metabolic encephalopathy Resolved Most likely secondary to benzodiazepine withdrawal Continue risperidone 2 mg at bedtime for maintenance dose for the next 2 to 4 weeks. Titrated Klonopin to 0.5 1 time daily Hypertensive emergency Resolved Blood pressure under control Continue lisinopril Type 2 diabetes Insulin sliding scale Glucose level under control Hyperlipidemia Continue statin Asthma Continue inhalers Not in acute exacerbation Depression and anxiety Continue Klonopin for now with titration VS,Fishbone, I+O VS, Fishbone, I+O Vital Signs Date Time Temp Pulse Resp B/P (MAP) Pulse Ox O2 Delivery O2 Flow Rate FiO2 10/30/20 09:08 126/73 10/30/20 06:00 97.5 66 22 95 Room Air I&O- Last 24 Hours up to 6 AM 10/30/20 06:00 Intake Total 840 ml Output Total 0 ml Balance 840 ml LIVIA SHANKAR DO Oct 30, 2020 13:58
[2020-10-30 14:00] VITALS: BP 132/72
[2020-10-30] MEDS: risperiDONE 2 MG TAB PO SCH (20:39)
[2020-10-30 22:00] VITALS: BP 126/75
[2020-10-31 06:00] VITALS: BP 150/83
[2020-10-31 08:52] VITALS: BP 126/74
[2020-10-31] MEDS: SENNA 8.6 MG TAB (SENOKOT) PO SCH (08:52)
[2020-10-31] MEDS: clonazePAM 0.5 MG TAB PO SCH (08:53)
[2020-10-31] MEDS: HEPARIN SOD (PORCINE) 5000UNITS/ML 1ML VIAL/SYRINGE SQ SCH (08:53)
[2020-10-31] MEDS: MULTIVITAMINS/MINERALS THERAP 1 TAB PO SCH (08:53)
[2020-10-31] MEDS: DOCUSATE SODIUM 100MG CAPSULE PO SCH (08:53)
[2020-10-31] MEDS: ASPIRIN 81MG ENTERIC TABLET PO SCH (08:53)
[2020-10-31] MEDS: FOLIC ACID 1 MG TAB PO SCH (08:53)
[2020-10-31] MEDS: FLUoxetine 20 MG CAP PO SCH (08:53)
[2020-10-31] MEDS: ATORVASTATIN 20 MG TAB PO SCH (08:53)
[2020-10-31] MEDS: HumaLOG INSULIN (NovoLOG) PER UNIT SC SCH ×2 (08:54→12:00)
[2020-10-31] MEDS ORDERED: RISP-9 PO (12:29)
--- NOTE | 2020-10-31 14:55 | DS.PDOC ---
Discharge Summary General Date of Admission Oct 21, 2020 at 22:21 Date of Discharge 10/31/20 Discharge Summary PROCEDURES PERFORMED DURING STAY: [None]. ADMITTING DIAGNOSES: Metabolic encephalopathy Hypertensive emergency Type 2 diabetes Hyperlipidemia Depression and anxiety Asthma DISCHARGE DIAGNOSES: Metabolic encephalopathy Hypertensive emergency Type 2 diabetes Hyperlipidemia Depression and anxiety Asthma COMPLICATIONS/CHIEF COMPLAINT: encephalopathy ACUTE. HISTORY OF PRESENT ILLNESS: Patient is 65 years old female with past medical history of EtOH abuse and benzodiazepine abuse presented to the hospital with altered mental status HOSPITAL COURSE: During the hospital stay the following issue addressed Metabolic encephalopathy Resolved Most likely secondary to benzodiazepine withdrawal Continue risperidone 2 mg at bedtime for maintenance dose for the next 2 to 4 weeks. Titrated Klonopin to 0.5 1 time daily and today stopped Hypertensive emergency Resolved Blood pressure under control Continue lisinopril Type 2 diabetes Insulin sliding scale Glucose level under control Hyperlipidemia Continue statin Asthma Continue inhalers Not in acute exacerbation Depression and anxiety Continue Klonopin for now with titration DISCHARGE MEDICATIONS: Please see below. ALLERGIES: Please see below. PHYSICAL EXAMINATION ON DISCHARGE: VITAL SIGNS: Please see below. GENERAL APPEARANCE: NAD HEENT: no scleral icterus, no JVD, EOMI CARDIOVASCULAR: S1S2 LUNGS: CTA ABDOMEN: soft & not tender w palpation MUSCULOSKELETAL: no cyanosis, no swelling INTEGUMENT: no generalized pallor NEUROLOGICAL: cranial nerve function from 2-12 intact, follows commands, speech not dysarthric LABORATORY DATA: Please see below. PROGNOSIS: Fair ACTIVITY: [As tolerated]. DIET: Cardiac DISPOSITION: 01 Home, Self-Care. DISCHARGE INSTRUCTIONS: Stop taking benzodiazepines ITEMS TO FOLLOWUP ON ON OUTPATIENT: Follow-up with PCP and psychiatry team DISCHARGE CONDITION: [Stable]. TIME SPENT ON DISCHARGE: 40 minutes. Vital Signs/I&Os Vital Signs Date Time Temp Pulse Resp B/P (MAP) Pulse Ox O2 Delivery O2 Flow Rate FiO2 10/31/20 08:52 126/74 10/31/20 06:00 97.5 63 18 97 Room Air I&O- Last 24 Hours up to 6 AM 10/31/20 06:00 Intake Total 1110 ml Output Total 700 ml Balance 410 ml Laboratory Data Labs 24H Laboratory Tests 2 10/30/20 16:55: Bedside Glucose (Misc Panel) 128H 10/30/20 20:29: Bedside Glucose (Misc Panel) 149H 10/31/20 05:30: Bedside Glucose (Misc Panel) 130H 10/31/20 11:58: Bedside Glucose (Misc Panel) 95 FSBS Laboratory Tests Test 10/30/20 16:55 10/30/20 20:29 10/31/20 05:30 10/31/20 11:58 Range/Units Bedside Glucose (Misc Panel) 128 149 130 95 80-115 MG/DL Microbiology Microbiology 10/21/20 Urine Culture - Final, Complete Discharge Medications Scheduled Ascorbic Acid (Vitamin C) 500 Mg Tablet, 1,000 MG PO DAILY, (Reported) Aspirin (Aspirin EC) 81 Mg Tablet.dr, 81 MG PO DAILY, (Reported) Atorvastatin Calcium (Atorvastatin Calcium) 20 Mg Tablet, 20 MG PO DAILY, (Reported) Dulaglutide (Trulicity) 1.5 Mg/0.5 Ml Pen.injctr, 1.5 MG SC QWEEK, (Reported) Fluoxetine Hcl (Fluoxetine HCl) 20 Mg Capsule, 40 MG PO DAILY, (Reported) Lisinopril (Lisinopril) 10 Mg Tablet, 10 MG PO DAILY, (Reported) [place]-3 Fatty Acids/Fish Oil (Fish Oil 1,000 mg Capsule) 1 Each Capsule, 1,000 MG PO DAILY, (Reported) Risperidone (Risperidone) 2 Mg Tablet, 2 MG PO QHS Sennosides (Senna) 8.6 Mg Tablet, 1 TAB PO DAILY, (Reported) Scheduled PRN Albuterol Sulfate (Proair Hfa) 8.5 Gm Hfa.aer.ad, 2 PUFF INH QID PRN for SHORTNESS OF BREATH, (Reported) Sodium Chloride (Saline Nasal [place]) 44 Ml [place], 1 SPRAY NA QID PRN for NASAL DRYNESS, (Reported) Trazodone HCl (Trazodone HCl) 50 Mg Tab, 50 MG PO QHS PRN for INSOMNIA, (Reported) Allergies Coded Allergies: iodine (Verified Allergy, Severe, anaphylaxis, 08/19/20) shellfish derived (Verified Allergy, Severe, anaphylaxis, 08/19/20) LIVIA SHANKAR DO Oct 31, 2020 14:55
== END 2020-10-31 14:30 | disposition home or self-care (01) | DRG 52 ==
LOC: M ED 22:20 → M ED INP 22:21 → M PCU 10-22 03:37 → M MSPAV 10-23 17:37
PROVIDERS: ADMIT Family Medicine; ATTEND Internal Medicine
DX: G93.41 Metabolic encephalopathy (principal); F10.251 Alcohol dependence with alcohol-induced psychotic disorder with hallucinations; I10 Essential (primary) hypertension; I16.1 Hypertensive emergency; E11.9 Type 2 diabetes mellitus without complications; E78.5 Hyperlipidemia, unspecified; F32.9 Major depressive disorder, single episode, unspecified; F41.9 Anxiety disorder, unspecified; J45.909 Unspecified asthma, uncomplicated; F11.23 Opioid dependence with withdrawal; Z79.82 Long term (current) use of aspirin; Z79.899 Other long term (current) drug therapy; Z88.8 Allergy status to other drugs, medicaments and biological substances; Z91.013 Allergy to seafood; Z86.73 Personal history of transient ischemic attack (TIA), and cerebral infarction without residual deficits; G43.909 Migraine, unspecified, not intractable, without status migrainosus

== ENCOUNTER → 2021-03-02 | Outpatient (CLI) | payer OTHER ==
[~2021-03-02] MED LIST changes: +ATIV1TAB7 PO; +FISH1000 PO; +FLUO20CA20 PO; +HM S0.65; +OXAZ10CA3 PO; +OXAZ15CA4 PO; +PROAAER10 INH; +RISP-9 PO; +SENN8.6T28 PO; +ZALE10CA PO
[2021-03-02 13:26] LABS: HEMOGLOBIN A1c 6.1 %
[2021-03-02 13:36] LABS: BLOOD UREA NITROGEN 17 MG/DL (7-18); CALCIUM LEVEL 10.6 MG/DL (8.8-10.2); CARBON DIOXIDE LEVEL 30 MEQ/L (21-32); CHLORIDE LEVEL 102 MEQ/L (98-107); CHOLESTEROL LEVEL 220 MG/DL (<200); CHOLESTEROL RISK RATIO 1.929 (<5); CREATININE FOR GFR 0.78 MG/DL (0.55-1.30); GLOMERULAR FILTRATION RATE > 60.0 (>45); GLUCOSE, FASTING 95 MG/DL (70-100); HDL CHOLESTEROL 114 MG/DL (>40); LDL CHOLESTEROL 82 MG/DL (<100); NON-HDL-C 106 MG/DL; POTASSIUM SERUM 4.9 MEQ/L (3.5-5.1); SODIUM LEVEL 139 MEQ/L (136-145); TRIGLYCERIDES LEVEL 121 MG/DL (<150)
== END ==
LOC: M PLALAB 11:17
PROVIDERS: ATTEND Student in an Organized Health Care Education/Training Program
DX: E11.9 Type 2 diabetes mellitus without complications (principal)

== ENCOUNTER → 2021-03-18 | Outpatient (CLI) | payer OTHER ==
[2021-03-18 13:09] LABS: BLOOD UREA NITROGEN 13 MG/DL (7-18); CALCIUM LEVEL 10.2 MG/DL (8.8-10.2); CARBON DIOXIDE LEVEL 30 MEQ/L (21-32); CHLORIDE LEVEL 105 MEQ/L (98-107); CREATININE FOR GFR 0.84 MG/DL (0.55-1.30); GLOMERULAR FILTRATION RATE > 60.0 (>45); GLUCOSE, FASTING 152 MG/DL (70-100); PHOSPHORUS LEVEL 3.4 MG/DL (2.5-4.9); POTASSIUM SERUM 4.5 MEQ/L (3.5-5.1); PTH INTACT 55.1 PG/ML (18.5-88.0); SODIUM LEVEL 138 MEQ/L (136-145)
== END ==
LOC: M LAB 11:15
PROVIDERS: ATTEND Student in an Organized Health Care Education/Training Program
DX: E83.52 Hypercalcemia (principal)

== ENCOUNTER → 2021-04-21 | Outpatient (REF) | payer OTHER ==
[~2021-04-21] MED LIST changes: +FLUO-96 PO; -FLUO20CA20 PO
== END ==
LOC: M SFHCWAGY 09:45
PROVIDERS: ATTEND Student in an Organized Health Care Education/Training Program
DX: N76.4 Abscess of vulva (principal)

== ENCOUNTER → 2021-06-22 | Outpatient (CLI) | payer MEDICARE | LOC: M PLAIMG 15:56 | PROVIDERS: ATTEND Physician Assistant | DX: R05.9 Cough, unspecified (principal) ==

== ENCOUNTER → 2021-07-25 | Outpatient (CLI) | payer MEDICARE ==
[2021-07-25 17:25] LABS: BLOOD UREA NITROGEN 13 MG/DL (7-18); CALCIUM LEVEL 9.9 MG/DL (8.8-10.2); CARBON DIOXIDE LEVEL 29 MEQ/L (21-32); CHLORIDE LEVEL 105 MEQ/L (98-107); CREATININE FOR GFR 0.81 MG/DL (0.55-1.30); GLOMERULAR FILTRATION RATE > 60.0 (>45); GLUCOSE, FASTING 100 MG/DL (70-100); POTASSIUM SERUM 4.2 MEQ/L (3.5-5.1); SODIUM LEVEL 138 MEQ/L (136-145)
[2021-07-25 17:36] LABS: MALB URINE SIEMENS 6.4 MG/L; MAU/CREAT RATIO 10.1 MCG/MG (0.0-30.0)
[2021-07-25 18:33] LABS: HEMOGLOBIN A1c 6.4 %
== END ==
LOC: M PLALAB 14:24
PROVIDERS: ATTEND Student in an Organized Health Care Education/Training Program
DX: E11.9 Type 2 diabetes mellitus without complications (principal)

== ENCOUNTER → 2021-07-25 | Outpatient (REF) | payer MEDICARE | LOC: M SFHCPLAZ 14:07 | PROVIDERS: ATTEND Family Medicine | DX: Z53.20 Procedure and treatment not carried out because of patient's decision for unspecified reasons (principal) ==

== ENCOUNTER → 2021-08-03 | Outpatient (CLI) | payer MEDICARE | LOC: M PLALAB 09:53 | PROVIDERS: ATTEND Physician Assistant | DX: J20.9 Acute bronchitis, unspecified (principal) ==

== ENCOUNTER → 2021-11-09 | Outpatient (REF) | payer MEDICARE | LOC: M SFHCPLAZ 11:24 | PROVIDERS: ATTEND Family Medicine | DX: I10 Essential (primary) hypertension (principal); E11.9 Type 2 diabetes mellitus without complications ==

== ENCOUNTER → 2021-11-14 | Outpatient (CLI) | payer MEDICARE ==
[2021-11-14 11:22] LABS: CHOLESTEROL RISK RATIO 1.809 (<5)
== END ==
LOC: M PLALAB 08:22
PROVIDERS: ATTEND Student in an Organized Health Care Education/Training Program
DX: I25.10 Atherosclerotic heart disease of native coronary artery without angina pectoris (principal)

== ENCOUNTER → 2021-11-14 | Outpatient (CLI) | payer MEDICARE ==
[2021-11-14 11:21] LABS: BLOOD UREA NITROGEN 15 MG/DL (7-18); GLUCOSE, FASTING 123 MG/DL (70-100)
[2021-11-14 11:22] LABS: ALBUMIN 3.7 GM/DL (3.2-5.2); ALT/SGPT 19 U/L (12-78); BILIRUBIN,TOTAL 0.7 MG/DL (0.2-1.0); CALCIUM LEVEL 9.8 MG/DL (8.8-10.2); CARBON DIOXIDE LEVEL 27 MEQ/L (21-32); CHLORIDE LEVEL 104 MEQ/L (98-107); CREATININE FOR GFR 0.74 MG/DL (0.55-1.30); GLOMERULAR FILTRATION RATE > 60.0 (>45); POTASSIUM SERUM 4.5 MEQ/L (3.5-5.1); SODIUM LEVEL 136 MEQ/L (136-145); TOTAL PROTEIN 6.8 GM/DL (6.4-8.2)
[2021-11-14 11:44] LABS: HEMOGLOBIN A1c 6.6 %
== END ==
LOC: M PLAIMG 08:20
PROVIDERS: ATTEND Student in an Organized Health Care Education/Training Program
DX: I10 Essential (primary) hypertension (principal); E11.9 Type 2 diabetes mellitus without complications

== ENCOUNTER → 2021-11-29 | Outpatient (CLI) | payer MEDICARE ==
[2021-11-29 18:40] LABS: C REACTIVE PROTEIN QUANTITATIV < 0.30 MG/DL (0.00-0.30); FREE T4 0.97 NG/DL (0.76-1.46); THYROID STIMULATING HORMONE 0.659 uIU/ML (0.358-3.740)
[2021-11-29 19:35] LABS: TOTAL 25(OH) VITAMIN D 33.5 NG/ML (30.0-100.0)
== END ==
LOC: M PLALAB 14:45
PROVIDERS: ATTEND Student in an Organized Health Care Education/Training Program
DX: R15.2 Fecal urgency (principal); E55.9 Vitamin D deficiency, unspecified; Z13.29 Encounter for screening for other suspected endocrine disorder; Z79.899 Other long term (current) drug therapy

== ENCOUNTER 2022-02-12 14:27 | Emergency (ER) | payer MEDICARE ==
[~2022-02-12] VITALS: Ht 167.6 cm; Wt 83.6 kg
[2022-02-12 14:58] LABS: BASO % 0.8 % (0.0-1.0); EOS # 0.2 10^3/uL (0.0-0.5); EOS % 3.5 % (0.0-3.0); HEMATOCRIT 42.1 % (36.0-47.0); HEMOGLOBIN 13.9 g/dl (12.0-15.5); LYMPH # 2.7 10^3/uL (1.5-5.0); LYMPH % 53.4 % (24.0-44.0); MEAN CORPUSCULAR HEMOGLOBIN 30.3 pg (27.0-33.0); MEAN CORPUSCULAR VOLUME 91.9 fl (80.0-96.0); MONO # 0.5 10^3/uL (0.0-0.8); MONO % 9.2 % (2.0-8.0); NEUTROPHILS # 1.7 10^3/uL (1.5-8.5); NEUTROPHILS % 32.7 % (36.0-66.0); PLATELET COUNT, AUTOMATED 239 10^3/uL (150-450); RED BLOOD COUNT 4.58 10^6/uL (4.00-5.40); WHITE BLOOD COUNT 5.1 10^3/uL (4.0-10.0)
[2022-02-12] MEDS ORDERED: hydrALAZINE 20MG/ML 1ML VIAL IV STA (15:08)
[2022-02-12 15:32] LABS: ALBUMIN 4.1 G/DL (3.2-5.2); ALKALINE PHOSPHATASE 65 U/L (46-116); ALT/SGPT 24 U/L (7.0-40); AST/SGOT 24 U/L (<34); BILIRUBIN,DIRECT 0.2 MG/DL (<0.4); BLOOD UREA NITROGEN 16 MG/DL (9-23); CARBON DIOXIDE LEVEL 29 MMOL/L (20-31); CHLORIDE LEVEL 102 MMOL/L (98-107); FREE T4 1.12 NG/DL (0.89-1.76); GLOMERULAR FILTRATION RATE > 60.0 (>45); GLUCOSE, FASTING 112 MG/DL (74-106); POTASSIUM SERUM 4.4 MMOL/L (3.5-5.1); SODIUM LEVEL 140 MMOL/L (136-145); TOTAL PROTEIN 7.2 G/DL (5.7-8.2)
[2022-02-12 16:13] LABS: RSV AMPLIFICATION NEGATIVE (NEGATIVE)
[2022-02-12] MEDS ORDERED: METF-838 PO (16:32)
[2022-02-12] MEDS ORDERED: D3 S20002 PO (16:32)
[2022-02-12] MEDS ORDERED: FLUO40CA PO (16:32)
[2022-02-12] MEDS ORDERED: LOSA25TA13 PO (16:32)
[2022-02-12] MEDS ORDERED: CETI-24 PO (16:32)
[2022-02-12] MEDS ORDERED: VENTAER INH (16:34)
[2022-02-12] MEDS ORDERED: HOME MED LIST COMPLETE! XX SCH (16:35)
[2022-02-12] MEDS ORDERED: LOSARTAN 25 MG TAB PO ONE (16:50)
[2022-02-12] MEDS ORDERED: LOSA50TA28 PO (17:47)
[2022-02-12 18:00] VITALS: BP 145/65
== END 2022-02-12 18:09 | disposition home or self-care (01) ==
LOC: M ED 14:27
DX: I10 Essential (primary) hypertension (principal); I25.2 Old myocardial infarction; R00.1 Bradycardia, unspecified; Z86.73 Personal history of transient ischemic attack (TIA), and cerebral infarction without residual deficits; E11.9 Type 2 diabetes mellitus without complications; F41.9 Anxiety disorder, unspecified; Z88.8 Allergy status to other drugs, medicaments and biological substances; Z91.013 Allergy to seafood; Z79.51 Long term (current) use of inhaled steroids; Z79.899 Other long term (current) drug therapy

== ENCOUNTER → 2022-04-15 | Outpatient (CLI) | payer MEDICARE ==
[~2022-04-15] MED LIST changes: +CETI-24 PO; +D3 S20002 PO; +FLUO40CA PO; +LOSA25TA13 PO; +LOSA50TA28 PO; +METF-838 PO; +SPIR1TAB34 PO; +VENTAER INH
[2022-04-15 16:21] LABS: ALBUMIN 3.9 G/DL (3.2-5.2); BLOOD UREA NITROGEN 22 MG/DL (9-23); CALCIUM LEVEL 9.4 MG/DL (8.3-10.6); CARBON DIOXIDE LEVEL 27 MMOL/L (20-31); CHLORIDE LEVEL 102 MMOL/L (98-107); CREATININE FOR GFR 0.83 MG/DL (0.55-1.30); GLOMERULAR FILTRATION RATE > 60.0 (>45); GLUCOSE, FASTING 134 MG/DL (74-106); PHOSPHORUS LEVEL 3.7 MG/DL (2.4-5.1); POTASSIUM SERUM 4.2 MMOL/L (3.5-5.1); SODIUM LEVEL 137 MMOL/L (136-145)
== END ==
LOC: M LAB 15:19
PROVIDERS: ATTEND Physician Assistant
DX: I10 Essential (primary) hypertension (principal)

== ENCOUNTER → 2022-04-16 | Outpatient (CLI) | payer MEDICARE ==
[~2022-04-16] MED LIST changes: -SPIR1TAB34 PO
== END ==
LOC: M LABSMTC 10:06
PROVIDERS: ATTEND Anesthesiology
DX: Z01.812 Encounter for preprocedural laboratory examination (principal); Z11.52 Encounter for screening for COVID-19

== ENCOUNTER 2022-04-19 10:35 | Day surgery (SDC) | payer MEDICARE ==
[~2022-04-19] VITALS: Ht 165.1 cm; Wt 83.6 kg
[2022-04-19] MEDS ORDERED: SPIR1TAB34 PO (11:21)
[2022-04-19] MEDS ORDERED: LIDOCAINE 2% 100MG/5ML SDV (FOR ANES.) As Ordered ONE (12:12)
[2022-04-19] MEDS ORDERED: propofoL 200 MG/20 ML VIAL As Ordered ONE ×4 (12:12→12:37)
[2022-04-19] MEDS ORDERED: hydrALAZINE 20MG/ML 1ML VIAL As Ordered ONE (12:30)
[2022-04-19 13:10] VITALS: BP 105/52
== END 2022-04-19 13:14 | disposition home or self-care (01) ==
LOC: M OPP 10:35
PROVIDERS: ATTEND Internal Medicine Gastroenterology
DX: D12.6 Benign neoplasm of colon, unspecified (principal); K64.0 First degree hemorrhoids; K62.5 Hemorrhage of anus and rectum; K57.30 Diverticulosis of large intestine without perforation or abscess without bleeding; Z79.02 Long term (current) use of antithrombotics/antiplatelets; Z79.84 Long term (current) use of oral hypoglycemic drugs; Z79.899 Other long term (current) drug therapy; Z88.8 Allergy status to other drugs, medicaments and biological substances; Z91.013 Allergy to seafood; E78.5 Hyperlipidemia, unspecified; J45.909 Unspecified asthma, uncomplicated; E11.9 Type 2 diabetes mellitus without complications; I10 Essential (primary) hypertension
CPT/HCPCS: 45380; 88305; J0360

== ENCOUNTER 2022-06-29 08:59 | Emergency (ER) | payer MEDICARE ==
[~2022-06-29] VITALS: Ht 167.6 cm; Wt 80.4 kg
[~2022-06-29 08:59] MED LIST changes: +SPIR1TAB34 PO
[2022-06-29 10:25] LABS: BLOOD UREA NITROGEN 14 MG/DL (9-23); CALCIUM LEVEL 10.1 MG/DL (8.3-10.6); CARBON DIOXIDE LEVEL 27 MMOL/L (20-31); CHLORIDE LEVEL 103 MMOL/L (98-107); CREATININE FOR GFR 0.73 MG/DL (0.55-1.30); GLOMERULAR FILTRATION RATE > 60.0 (>45); GLUCOSE, FASTING 135 MG/DL (74-106); POTASSIUM SERUM 4.3 MMOL/L (3.5-5.1); SODIUM LEVEL 137 MMOL/L (136-145)
[2022-06-29] MEDS ORDERED: AMLO1TAB24 PO (11:07)
[2022-06-29 11:32] VITALS: BP 156/74
== END 2022-06-29 11:34 | disposition home or self-care (01) ==
LOC: M ED 08:59
DX: I10 Essential (primary) hypertension (principal); E11.9 Type 2 diabetes mellitus without complications; F41.9 Anxiety disorder, unspecified; I25.2 Old myocardial infarction; Z91.013 Allergy to seafood; Z79.899 Other long term (current) drug therapy

== ENCOUNTER → 2022-07-05 | Outpatient (REF) | payer MEDICARE ==
[~2022-07-05] MED LIST changes: +AMLO1TAB24 PO
[2022-07-11 23:07] LABS: DOPAMINE 167 ug/24 hr (0-510); DOPAMINE TOTAL URINE 93 ug/L (Undefined); EPINEPHRINE 4 ug/24 hr (0-20); EPINEPHRINE TOTAL URINE 2 ug/L (Undefined); METANEPHRINE TOTAL URINE 37 ug/L (Undefined); METANEPHRINE URINE 67 ug/24 hr (36-209); NOREPINEPHRINE 40 ug/24 hr (0-135); NOREPINEPHRINE TOTAL URINE 22 ug/L (Undefined); NORMETANEPHRINE TOTAL URINE 186 ug/L (Undefined); NORMETANEPHRINE URINE 335 ug/24 hr (131-612)
== END ==
LOC: M LAB REF 14:16
PROVIDERS: ATTEND Physician Assistant
DX: I10 Essential (primary) hypertension (principal)

== ENCOUNTER → 2022-07-14 | Outpatient (CLI) | payer MEDICARE ==
[2022-07-14 15:28] LABS: ALBUMIN 4.1 G/DL (3.2-5.2); ALKALINE PHOSPHATASE 60 U/L (46-116); ALT/SGPT 26 U/L (7.0-40); AST/SGOT 25 U/L (<34); BILIRUBIN,TOTAL 1.3 MG/DL (0.3-1.2); BLOOD UREA NITROGEN 17 MG/DL (9-23); CALCIUM LEVEL 9.9 MG/DL (8.3-10.6); CARBON DIOXIDE LEVEL 30 MMOL/L (20-31); CHLORIDE LEVEL 95 MMOL/L (98-107); CREATININE FOR GFR 0.79 MG/DL (0.55-1.30); GLOMERULAR FILTRATION RATE > 60.0 (>45); GLUCOSE, FASTING 109 MG/DL (74-106); POTASSIUM SERUM 3.1 MMOL/L (3.5-5.1); SODIUM LEVEL 135 MMOL/L (136-145); TOTAL PROTEIN 7.5 G/DL (5.7-8.2)
== END ==
LOC: M PLALAB 13:33
PROVIDERS: ATTEND Student in an Organized Health Care Education/Training Program
DX: I10 Essential (primary) hypertension (principal)

== ENCOUNTER 2022-07-24 10:54 | Emergency (ER) | payer MEDICARE ==
[~2022-07-24] VITALS: Ht 167.6 cm; Wt 77.3 kg
[2022-07-24 12:00] LABS: BASO % 0.5 % (0.0-1.0); EOS # 0.1 10^3/uL (0.0-0.5); EOS % 1.2 % (0.0-3.0); HEMATOCRIT 40.9 % (36.0-47.0); LYMPH % 35.4 % (24.0-44.0); MEAN CORPUSCULAR HEMOGLOBIN 30.8 pg (27.0-33.0); MEAN CORPUSCULAR HGB CONC 34.2 g/dl (32.0-36.5); MEAN CORPUSCULAR VOLUME 90.1 fl (80.0-96.0); MONO # 0.5 10^3/uL (0.0-0.8); MONO % 8.2 % (2.0-8.0); NEUTROPHILS # 3.1 10^3/uL (1.5-8.5); NEUTROPHILS % 54.5 % (36.0-66.0); PLATELET COUNT, AUTOMATED 260 10^3/uL (150-450); RED BLOOD COUNT 4.54 10^6/uL (4.00-5.40); WHITE BLOOD COUNT 5.7 10^3/uL (4.0-10.0)
[2022-07-24 12:07] LABS: APPEARANCE, URINE HAZY (CLEAR); BACTERIA, URINE AUTO 1+ (NEGATIVE); BILIRUBIN, URINE AUTO NEGATIVE (NEGATIVE); BLOOD, URINE BLOOD NEGATIVE (NEGATIVE); COLOR, URINE AMBER (YELLOW); GLUCOSE, URINE (UA) AUTO NEGATIVE (NEGATIVE); KETONE, URINE AUTO 1+ mg/dL (NEGATIVE); LEUKOCYTE ESTERASE, URINE AUTO TRACE (NEGATIVE); MUCUS, URINE SMALL (NEGATIVE); NITRITE, URINE AUTO NEGATIVE (NEGATIVE); PROTEIN, URINE AUTO 1+ mg/dL (NEGATIVE); RBC, URINE AUTO 1 /HPF (0-3); SQUAMOUS EPITHELIAL CELL UR AU 10 /HPF (0-6); WBC, URINE AUTO 4 /HPF (0-3)
[2022-07-24 12:16] LABS: INR 0.92; PROTHROMBIN TIME 12.6 SECONDS (12.5-14.5)
[2022-07-24 12:20] LABS: LIPASE 49 U/L (12-53)
[2022-07-24 12:21] LABS: CK-MB VALUE MASS < 1.0 NG/ML (<3.6)
[2022-07-24 12:22] LABS: ALKALINE PHOSPHATASE 58 U/L (46-116); ALT/SGPT 29 U/L (7.0-40); AST/SGOT 23 U/L (<34); BILIRUBIN,DIRECT 0.4 MG/DL (<0.4); BILIRUBIN,TOTAL 1.5 MG/DL (0.3-1.2); CPK CREATINE PHOSPHOKINASE 113 U/L (34-145); MB/CK RELATIVE INDEX 0.88 (< OR =4); TOTAL PROTEIN 7.2 G/DL (5.7-8.2)
[2022-07-24] MEDS ORDERED: ISOVUE-370 76% 100ML VIAL As Ordered ONE (14:11)
[2022-07-24 14:55] LABS: CK-MB VALUE MASS < 1.0 NG/ML (<3.6)
[2022-07-24 14:57] LABS: CPK CREATINE PHOSPHOKINASE 107 U/L (34-145); MB/CK RELATIVE INDEX 0.93 (< OR =4)
[2022-07-24 16:45] VITALS: BP 132/63
== END 2022-07-24 16:54 | disposition home or self-care (01) ==
LOC: M ED 10:54
DX: R55 Syncope and collapse (principal); R07.9 Chest pain, unspecified; E11.9 Type 2 diabetes mellitus without complications; I10 Essential (primary) hypertension; G43.909 Migraine, unspecified, not intractable, without status migrainosus; E03.9 Hypothyroidism, unspecified; F10.10 Alcohol abuse, uncomplicated; F41.9 Anxiety disorder, unspecified; Z91.013 Allergy to seafood; Z79.899 Other long term (current) drug therapy; Z79.51 Long term (current) use of inhaled steroids
CPT/HCPCS: 71045; 71275; 80047; 80076; 81001; 82550; 82553; 83690; 84484; 85025; 85610; 93005; 93041; 94760; 99285; Q9967

== ENCOUNTER 2022-09-01 14:28 | Emergency (ER) | payer MEDICARE ==
[~2022-09-01] VITALS: Ht 165.1 cm; Wt 78.0 kg
[2022-09-01] MEDS ORDERED: NAPR-837 PO (17:59)
[2022-09-01] MEDS ORDERED: BACL10TA2 PO (17:59)
[2022-09-01] MEDS ORDERED: LIDO5DIS41 TD (17:59)
[2022-09-01 18:10] VITALS: BP 146/76; TEMP 97.2; O2SAT 99
== END 2022-09-01 18:12 | disposition home or self-care (01) ==
LOC: M ED 14:28
DX: M25.552 Pain in left hip (principal); I10 Essential (primary) hypertension; E11.9 Type 2 diabetes mellitus without complications; M54.9 Dorsalgia, unspecified; F41.9 Anxiety disorder, unspecified; F32.A Depression, unspecified; F19.10 Other psychoactive substance abuse, uncomplicated; Z86.73 Personal history of transient ischemic attack (TIA), and cerebral infarction without residual deficits; H81.4 Vertigo of central origin; G47.33 Obstructive sleep apnea (adult) (pediatric); F60.3 Borderline personality disorder; F12.90 Cannabis use, unspecified, uncomplicated; Z91.013 Allergy to seafood; Z79.899 Other long term (current) drug therapy

== ENCOUNTER → 2022-09-06 | Outpatient (CLI) | payer MEDICARE ==
[~2022-09-06] MED LIST changes: +BACL10TA2 PO; +LIDO5DIS41 TD; +NAPR-837 PO
[2022-09-06 13:07] LABS: BASO % 0.7 % (0.0-1.0); EOS # 0.3 10^3/uL (0.0-0.5); EOS % 7.7 % (0.0-3.0); HEMATOCRIT 42.9 % (36.0-47.0); HEMOGLOBIN 13.6 g/dl (12.0-15.5); LYMPH % 47.5 % (24.0-44.0); MEAN CORPUSCULAR HEMOGLOBIN 29.9 pg (27.0-33.0); MEAN CORPUSCULAR HGB CONC 31.7 g/dl (32.0-36.5); MEAN CORPUSCULAR VOLUME 94.3 fl (80.0-96.0); MONO # 0.4 10^3/uL (0.0-0.8); MONO % 9.4 % (2.0-8.0); NEUTROPHILS # 1.5 10^3/uL (1.5-8.5); NEUTROPHILS % 34.5 % (36.0-66.0); PLATELET COUNT, AUTOMATED 234 10^3/uL (150-450); RED BLOOD COUNT 4.55 10^6/uL (4.00-5.40); WHITE BLOOD COUNT 4.3 10^3/uL (4.0-10.0)
[2022-09-06 13:20] LABS: ERYTHROCYTE SEDIMENTATION RATE 10 mm/hr (0-30)
[2022-09-06 13:24] LABS: C REACTIVE PROTEIN QUANTITATIV < 0.40 MG/DL (<1.0)
[2022-09-06 13:26] LABS: ALBUMIN 3.9 G/DL (3.2-5.2); ALKALINE PHOSPHATASE 60 U/L (46-116); ALT/SGPT 34 U/L (7.0-40); AST/SGOT 23 U/L (<34); BILIRUBIN,TOTAL 1.2 MG/DL (0.3-1.2); BLOOD UREA NITROGEN 19 MG/DL (9-23); CALCIUM LEVEL 9.9 MG/DL (8.3-10.6); CARBON DIOXIDE LEVEL 28 MMOL/L (20-31); CHLORIDE LEVEL 106 MMOL/L (98-107); CREATININE FOR GFR 0.88 MG/DL (0.55-1.30); GLOMERULAR FILTRATION RATE > 60.0 (>45); GLUCOSE, FASTING 93 MG/DL (74-106); POTASSIUM SERUM 4.8 MMOL/L (3.5-5.1); SODIUM LEVEL 139 MMOL/L (136-145); TOTAL PROTEIN 6.7 G/DL (5.7-8.2)
[2022-09-06 14:00] LABS: RHEUMATOID FACTOR QUANT < 3.5 IU/ML (<14)
[2022-09-07 10:09] LABS: ANTINUCLEAR ANTIBODIES DIRECT Negative (Negative)
== END ==
LOC: M LAB 12:16
PROVIDERS: ATTEND Student in an Organized Health Care Education/Training Program
DX: M54.16 Radiculopathy, lumbar region (principal); M25.552 Pain in left hip

== ENCOUNTER → 2022-11-10 | Outpatient (CLI) | payer MEDICARE ==
[~2022-11-10] MED LIST changes: -HM S0.65; -HM S0.65 NARES; +SALI0.6531; +SALI0.6531 NARES
[2022-11-10 17:16] LABS: BLOOD UREA NITROGEN 13 MG/DL (9-23); CALCIUM LEVEL 9.4 MG/DL (8.3-10.6); CARBON DIOXIDE LEVEL 28 MMOL/L (20-31); CHLORIDE LEVEL 104 MMOL/L (98-107); CREATININE FOR GFR 0.75 MG/DL (0.55-1.30); GLOMERULAR FILTRATION RATE > 60.0 (>45); GLUCOSE, FASTING 89 MG/DL (74-106); POTASSIUM SERUM 4.5 MMOL/L (3.5-5.1); SODIUM LEVEL 140 MMOL/L (136-145)
== END ==
LOC: M PLALAB 14:15
PROVIDERS: ATTEND Student in an Organized Health Care Education/Training Program
DX: E87.6 Hypokalemia (principal)

== ENCOUNTER → 2022-11-10 | Outpatient (CLI) | payer MEDICARE | LOC: M RAD 08:09 | PROVIDERS: ATTEND Student in an Organized Health Care Education/Training Program | DX: I10 Essential (primary) hypertension (principal) ==

== ENCOUNTER → 2022-11-10 | Outpatient (CLI) | payer MEDICARE ==
[2022-11-10 17:34] LABS: HEMOGLOBIN A1c 5.8 % (4.0-6.0)
== END ==
LOC: M PLALAB 14:12
PROVIDERS: ATTEND Student in an Organized Health Care Education/Training Program
DX: E11.9 Type 2 diabetes mellitus without complications (principal)

== ENCOUNTER 2023-05-07 13:50 | Outpatient (RCR) | payer MEDICAID, MEDICARE, OTHER ==
[~2023-05-07 13:50] MED LIST changes: +MECL-209 PO; -MECL1TAB31 PO
== END 2023-05-17 ==
LOC: M PT 13:50
PROVIDERS: ATTEND Specialist
DX: N81.6 Rectocele (principal)

== ENCOUNTER → 2023-05-11 | Outpatient (CLI) | payer MEDICARE ==
[2023-05-11 14:14] LABS: ALBUMIN 3.7 G/DL (3.2-5.2); ALKALINE PHOSPHATASE 66 U/L (46-116); ALT/SGPT 25 U/L (7.0-40); AST/SGOT 16 U/L (<34); BLOOD UREA NITROGEN 16 MG/DL (9-23); CALCIUM LEVEL 10.1 MG/DL (8.3-10.6); CARBON DIOXIDE LEVEL 31 MMOL/L (20-31); CHLORIDE LEVEL 103 MMOL/L (98-107); CHOLESTEROL LEVEL 170 MG/DL (<200); CHOLESTEROL RISK RATIO 1.87 (<5); CREATININE FOR GFR 0.86 MG/DL (0.55-1.30); GLOMERULAR FILTRATION RATE > 60.0 (>45); GLUCOSE, FASTING 94 MG/DL (74-106); HDL CHOLESTEROL 90.6 MG/DL (>40); NON-HDL-C 79.4 MG/DL; POTASSIUM SERUM 4.9 MMOL/L (3.5-5.1); SODIUM LEVEL 137 MMOL/L (136-145); TOTAL PROTEIN 6.9 G/DL (5.7-8.2); TRIGLYCERIDES LEVEL 72 MG/DL (<150)
== END ==
LOC: M PLALAB 11:47
PROVIDERS: ATTEND Physician Assistant
DX: I10 Essential (primary) hypertension (principal)

== ENCOUNTER 2023-06-11 13:37 | Outpatient (RCR) | payer MEDICARE ==
[~2023-06-11 13:37] MED LIST changes: +RISP-106 PO; -RISP-9 PO
== END 2023-06-17 ==
LOC: M PT 13:37
PROVIDERS: ATTEND Specialist
DX: N81.6 Rectocele (principal)

== ENCOUNTER → 2023-08-17 | Outpatient (CLI) | payer MEDICARE, OTHER ==
[~2023-08-17] MED LIST changes: +BUPR-597; -BUPR300T92; +FLUO-365; +FLUO-365 PO; -FLUO20CA22; -FLUO20CA22 PO
== END ==
LOC: M RAD 17:20
PROVIDERS: ATTEND Student in an Organized Health Care Education/Training Program
DX: K59.00 Constipation, unspecified (principal)

== ENCOUNTER → 2024-03-04 | Outpatient (CLI) | payer MEDICARE, OTHER ==
[~2024-03-04] MED LIST changes: +GABA-1172; -GABA-282
[2024-03-04 13:55] LABS: CREATININE, URINE 17.9 MG/DL; MALB URINE SIEMENS < 3.0 MG/L
[2024-03-04 14:13] LABS: THYROID STIMULATING HORMONE 1.148 uIU/ML (0.55-4.78); TOTAL 25(OH) VITAMIN D 42.5 NG/ML (20.0-100.0)
[2024-03-04 14:14] LABS: FREE T4 1.32 NG/DL (0.89-1.76)
== END ==
LOC: M PLALAB 09:19
PROVIDERS: ATTEND Student in an Organized Health Care Education/Training Program
DX: Z00.00 Encounter for general adult medical examination without abnormal findings (principal); E11.9 Type 2 diabetes mellitus without complications; Z79.899 Other long term (current) drug therapy

== ENCOUNTER → 2024-03-25 | Outpatient (REF) | payer MEDICARE | LOC: M LAB REF 17:41 | PROVIDERS: ATTEND Physician Assistant | DX: J06.9 Acute upper respiratory infection, unspecified (principal) ==

== ENCOUNTER → 2024-03-27 | Outpatient (CLI) | payer MEDICARE | LOC: M WUC 12:03 | PROVIDERS: ATTEND Nurse Practitioner Family | DX: R05.9 Cough, unspecified (principal) ==

== ENCOUNTER → 2024-04-23 | Outpatient (CLI) | payer MEDICARE ==
[~2024-04-23] MED LIST changes: +AMLO1TAB25 PO; +ECOT81TA5 PO; +GABA-284 PO; +LOSA100T46 PO; +MIRA3350 PO; +SEMA0.257; +SPIR-10 PO
[2024-04-23 16:11] LABS: HEMATOCRIT 40.2 % (36.0-47.0); HEMOGLOBIN 13.1 g/dl (12.0-15.5); MEAN CORPUSCULAR HEMOGLOBIN 29.8 pg (27.0-33.0); MEAN CORPUSCULAR HGB CONC 32.6 g/dl (32.0-36.5); MEAN CORPUSCULAR VOLUME 91.6 fl (80.0-96.0); PLATELET COUNT, AUTOMATED 260 10^3/uL (150-450); RED BLOOD COUNT 4.39 10^6/uL (4.00-5.40); WHITE BLOOD COUNT 5.3 10^3/uL (4.0-10.0)
[2024-04-23 16:34] LABS: ALBUMIN 3.7 G/DL (3.2-5.2); ALKALINE PHOSPHATASE 75 U/L (35-104); ALT/SGPT 19 U/L (7.0-40); AST/SGOT 18 U/L (<34); BILIRUBIN,TOTAL 0.7 MG/DL (0.3-1.2); BLOOD UREA NITROGEN 13 MG/DL (9-23); CALCIUM LEVEL 9.9 MG/DL (8.3-10.6); CARBON DIOXIDE LEVEL 28 MMOL/L (20-31); CHLORIDE LEVEL 106 MMOL/L (98-107); CHOLESTEROL LEVEL 170 MG/DL (<200); CHOLESTEROL RISK RATIO 1.85 (<5); CREATININE FOR GFR 0.74 MG/DL (0.55-1.30); GLOMERULAR FILTRATION RATE > 60.0 (>45); GLUCOSE, FASTING 93 MG/DL (74-106); HDL CHOLESTEROL 91.7 MG/DL (>40); LDL CHOLESTEROL 66.1 MG/DL (<100); NON-HDL-C 78.3 MG/DL; POTASSIUM SERUM 4.8 MMOL/L (3.5-5.1); SODIUM LEVEL 142 MMOL/L (136-145); TOTAL PROTEIN 6.9 G/DL (5.7-8.2); TRIGLYCERIDES LEVEL 61 MG/DL (<150)
== END ==
LOC: M PLALAB 11:56
PROVIDERS: ATTEND Physician Assistant
DX: Z01.810 Encounter for preprocedural cardiovascular examination (principal); I10 Essential (primary) hypertension; E78.2 Mixed hyperlipidemia

== ENCOUNTER 2024-05-01 06:59 | Day surgery (SDC) | payer MEDICARE ==
[~2024-05-01] VITALS: Ht 165.1 cm; Wt 75.7 kg
[~2024-05-01 06:59] MED LIST changes: +PHENYLEPHRINE 10% OPHTH SOL 5ML OD PRN
[2024-05-01] MEDS: OFLOXACIN 0.3 % (OCUFLOX) OPTH SOL 5ML OD ONE (07:23)
[2024-05-01] MEDS: TROPICAMIDE 1% OPHTH SOLN 15ML OD SCH (07:23)
[2024-05-01] MEDS: PHENYLEPHRINE 2.5% OPHTH SOL 2ML OD SCH (07:23)
[2024-05-01] MEDS: CYCLOPENTOLATE 1% OPHTH SOLN 2ML BTL OD SCH (07:23)
[2024-05-01] MEDS: LIDOCAINE 3.5 % 1ML OPHTH TOPICAL GEL OU ONE (07:24)
[2024-05-01] MEDS ORDERED: MIDAZOLAM INJ 2MG/2ML VIAL As Ordered ONE (07:36)
[2024-05-01] MEDS ORDERED: fentaNYL 100 MCG/2 ML INJECTION As Ordered ONE (07:36)
[2024-05-01] MEDS: CEFUROXIME 1MG/0.1ML INTRACAMERAL INJ As Ordered ONE (08:40)
[2024-05-01] MEDS: LIDOCAINE 1% SDV 5ML VIAL As Ordered ONE (08:40)
[2024-05-01] MEDS: BSS IRRIG/VANCO(10MG)/TOBRA(5MG)/EPINEPH(1:1000-0.5CC)500ML BAG-ORONLY As Ordered ONE (08:40)
[2024-05-01 08:55] VITALS: BP 121/63; TEMP 97.2; O2SAT 96
== END 2024-05-01 09:36 | disposition home or self-care (01) ==
LOC: M SDC 06:59
PROVIDERS: ATTEND Ophthalmology
DX: H25.11 Age-related nuclear cataract, right eye (principal); E11.36 Type 2 diabetes mellitus with diabetic cataract; I10 Essential (primary) hypertension; E78.00 Pure hypercholesterolemia, unspecified; I25.2 Old myocardial infarction; G47.33 Obstructive sleep apnea (adult) (pediatric); Z79.899 Other long term (current) drug therapy; Z79.82 Long term (current) use of aspirin; Z79.85 Long-term (current) use of injectable non-insulin antidiabetic drugs; Z86.73 Personal history of transient ischemic attack (TIA), and cerebral infarction without residual deficits; Z91.013 Allergy to seafood; Z90.49 Acquired absence of other specified parts of digestive tract; E78.2 Mixed hyperlipidemia
CPT/HCPCS: 66984; J0697; J2250; J3010; V2632

== ENCOUNTER 2024-05-08 09:29 | Day surgery (SDC) | payer MEDICARE ==
[~2024-05-08] VITALS: Ht 165.1 cm; Wt 76.7 kg
[~2024-05-08 09:29] MED LIST changes: +LIDOCAINE 2% 100MG/5ML SDV (FOR ANES.) As Ordered ONE; -PHENYLEPHRINE 10% OPHTH SOL 5ML OD PRN; +PHENYLEPHRINE 10% OPHTH SOL 5ML OS PRN; +propofoL 200 MG/20 ML VIAL As Ordered ONE
[2024-05-08] MEDS: TROPICAMIDE 1% OPHTH SOLN 15ML OS SCH (10:05)
[2024-05-08] MEDS: PHENYLEPHRINE 2.5% OPHTH SOL 2ML OS SCH (10:05)
[2024-05-08] MEDS: LIDOCAINE 3.5 % 1ML OPHTH TOPICAL GEL OU ONE (10:05)
[2024-05-08] MEDS: OFLOXACIN 0.3 % (OCUFLOX) OPTH SOL 5ML OS ONE (10:05)
[2024-05-08] MEDS: CYCLOPENTOLATE 1% OPHTH SOLN 2ML BTL OS SCH (10:05)
[2024-05-08] MEDS ORDERED: fentaNYL 100 MCG/2 ML INJECTION As Ordered ONE (10:40)
[2024-05-08] MEDS: LIDOCAINE 1% SDV 5ML VIAL As Ordered ONE (10:59)
[2024-05-08] MEDS: CEFUROXIME 1MG/0.1ML INTRACAMERAL INJ As Ordered ONE (10:59)
[2024-05-08] MEDS: BSS IRRIG/VANCO(10MG)/TOBRA(5MG)/EPINEPH(1:1000-0.5CC)500ML BAG-ORONLY As Ordered ONE (11:00)
[2024-05-08 11:15] VITALS: BP 133/74; TEMP 96.9; O2SAT 96
== END 2024-05-08 11:35 | disposition home or self-care (01) ==
LOC: M SDC 09:29
PROVIDERS: ATTEND Ophthalmology
DX: E11.36 Type 2 diabetes mellitus with diabetic cataract (principal); H25.12 Age-related nuclear cataract, left eye; I10 Essential (primary) hypertension; E78.00 Pure hypercholesterolemia, unspecified; G47.30 Sleep apnea, unspecified; I25.2 Old myocardial infarction; Z79.82 Long term (current) use of aspirin; Z79.899 Other long term (current) drug therapy; Z79.85 Long-term (current) use of injectable non-insulin antidiabetic drugs; Z91.013 Allergy to seafood
CPT/HCPCS: 66984; J0697; J3010; V2632

== ENCOUNTER → 2024-05-28 | Outpatient (CLI) | payer MEDICARE ==
[~2024-05-28] MED LIST changes: -LIDOCAINE 2% 100MG/5ML SDV (FOR ANES.) As Ordered ONE; -PHENYLEPHRINE 10% OPHTH SOL 5ML OS PRN; -propofoL 200 MG/20 ML VIAL As Ordered ONE
== END ==
LOC: M PLALAB 12:12
PROVIDERS: ATTEND Student in an Organized Health Care Education/Training Program
DX: E11.9 Type 2 diabetes mellitus without complications (principal)

== ENCOUNTER 2024-07-10 09:36 | Emergency (ER) | payer MEDICARE ==
[~2024-07-10] VITALS: Ht 165.1 cm; Wt 78.3 kg
[~2024-07-10 09:36] MED LIST changes: -BUPR-597; +BUPR-766
[2024-07-10 10:10] LABS: BASO % 0.7 % (0.0-1.0); EOS # 0.3 10^3/uL (0.0-0.5); EOS % 4.9 % (0.0-3.0); HEMATOCRIT 43.6 % (36.0-47.0); HEMOGLOBIN 14.3 g/dl (12.0-15.5); LYMPH # 2.6 10^3/uL (1.5-5.0); LYMPH % 45.1 % (24.0-44.0); MEAN CORPUSCULAR HEMOGLOBIN 29.4 pg (27.0-33.0); MEAN CORPUSCULAR HGB CONC 32.8 g/dl (32.0-36.5); MEAN CORPUSCULAR VOLUME 89.5 fl (80.0-96.0); MONO # 0.5 10^3/uL (0.0-0.8); MONO % 8.3 % (2.0-8.0); NEUTROPHILS # 2.3 10^3/uL (1.5-8.5); NEUTROPHILS % 40.8 % (36.0-66.0); PLATELET COUNT, AUTOMATED 237 10^3/uL (150-450); RED BLOOD COUNT 4.87 10^6/uL (4.00-5.40); WHITE BLOOD COUNT 5.7 10^3/uL (4.0-10.0)
[2024-07-10] MEDS ORDERED: ISOVUE-370 76% 100ML VIAL As Ordered ONE (10:24)
[2024-07-10 10:26] LABS: INR 0.94; PARTIAL THROMBOPLASTIN TIME 26.7 SECONDS (24.8-34.2); PROTHROMBIN TIME 12.9 SECONDS (12.5-14.5)
[2024-07-10 10:36] LABS: LIPASE 40 U/L (12-53)
[2024-07-10 10:38] LABS: ALKALINE PHOSPHATASE 70 U/L (35-104); ALT/SGPT 32 U/L (7.0-40); AST/SGOT 24 U/L (<34); BILIRUBIN,DIRECT 0.3 MG/DL (<0.4); BLOOD UREA NITROGEN 9 MG/DL (9-23); CALCIUM LEVEL 9.8 MG/DL (8.3-10.6); CARBON DIOXIDE LEVEL 30 MMOL/L (20-31); CHLORIDE LEVEL 103 MMOL/L (98-107); CK-MB VALUE MASS < 1.0 NG/ML (<3.6); CREATININE FOR GFR 0.75 MG/DL (0.55-1.30); GLOMERULAR FILTRATION RATE 86.7 (>45); GLUCOSE, FASTING 104 MG/DL (74-106); POTASSIUM SERUM 4.4 MMOL/L (3.5-5.1); SODIUM LEVEL 137 MMOL/L (136-145); TOTAL PROTEIN 7.2 G/DL (5.7-8.2)
[2024-07-10 10:40] LABS: FREE T4 1.26 NG/DL (0.89-1.76); THYROID STIMULATING HORMONE 1.458 uIU/ML (0.55-4.78)
[2024-07-10 10:48] LABS: CPK CREATINE PHOSPHOKINASE 80 U/L (34-145); MB/CK RELATIVE INDEX 1.25 (< OR =4)
[2024-07-10 11:28] LABS: CK-MB VALUE MASS < 1.0 NG/ML (<3.6)
[2024-07-10 11:29] LABS: CPK CREATINE PHOSPHOKINASE 68 U/L (34-145); MB/CK RELATIVE INDEX 1.47 (< OR =4)
[2024-07-10 12:26] VITALS: BP 117/59; TEMP 97.2; O2SAT 96
== END 2024-07-10 12:26 | disposition home or self-care (01) ==
LOC: M ED 09:36
DX: R07.89 Other chest pain (principal); K80.20 Calculus of gallbladder without cholecystitis without obstruction; E11.9 Type 2 diabetes mellitus without complications; I25.10 Atherosclerotic heart disease of native coronary artery without angina pectoris; F41.9 Anxiety disorder, unspecified; G43.909 Migraine, unspecified, not intractable, without status migrainosus; G47.33 Obstructive sleep apnea (adult) (pediatric); Z98.61 Coronary angioplasty status; F12.10 Cannabis abuse, uncomplicated; Z79.82 Long term (current) use of aspirin; Z79.4 Long term (current) use of insulin; Z79.899 Other long term (current) drug therapy; Z91.013 Allergy to seafood
CPT/HCPCS: 70491; 71045; 71275; 80047; 80048; 80076; 82550; 82553; 83690; 83880; 84439; 84443; 84484; 85025; 85610; 85730; 87486; 87581; 87633; 87798; 93005; 93041; 94760; 99285; Q9967

== ENCOUNTER → 2024-07-16 | Outpatient (CLI) | payer MEDICARE ==
[2024-07-16 17:14] LABS: FREE T4 1.14 NG/DL (0.89-1.76); THYROID STIMULATING HORMONE 2.358 uIU/ML (0.55-4.78)
[2024-07-16 17:17] LABS: TOTAL T3 97.9 NG/DL (60.0-181.0)
== END ==
LOC: M LAB 16:03
PROVIDERS: ATTEND Otolaryngology
DX: E06.9 Thyroiditis, unspecified (principal)

== ENCOUNTER → 2024-07-31 | Outpatient (CLI) | payer MEDICARE ==
[~2024-07-31] MED LIST changes: +LIDO1ADH93 TD; -LIDO5DIS41 TD
== END ==
LOC: M RAD 13:02
PROVIDERS: ATTEND Otolaryngology
DX: E06.9 Thyroiditis, unspecified (principal)

== ENCOUNTER → 2024-11-11 | Outpatient (CLI) | payer MEDICARE ==
[2024-11-11 13:01] LABS: ALT/SGPT 26.0 U/L (7.0-40); AST/SGOT 24.0 U/L (<34); CALCIUM LEVEL 9.8 MG/DL (8.3-10.6); CARBON DIOXIDE LEVEL 31.0 MMOL/L (20-31); CHLORIDE LEVEL 104.0 MMOL/L (98-107); CHOLESTEROL LEVEL 245.0 MG/DL (<200); CHOLESTEROL RISK RATIO 2.61 (<5); CREATININE FOR GFR 0.83 MG/DL (0.55-1.30); GLOMERULAR FILTRATION RATE 76.7 (>45); LDL CHOLESTEROL 133.8 MG/DL (<100); NON-HDL-C 151.4 MG/DL; POTASSIUM SERUM 4.5 MMOL/L (3.5-5.1); SODIUM LEVEL 142.0 MMOL/L (136-145); TRIGLYCERIDES LEVEL 88.0 MG/DL (<150)
== END ==
LOC: M PLALAB 07:44
PROVIDERS: ATTEND Physician Assistant
DX: I10 Essential (primary) hypertension (principal); E78.2 Mixed hyperlipidemia

== ENCOUNTER → 2024-12-01 | Outpatient (CLI) | payer MEDICARE ==
[~2024-12-01] MED LIST changes: +ZOLP10TA11 PO; -ZOLP10TA2 PO
== END ==
LOC: M RAD 13:14
DX: R42 Dizziness and giddiness (principal); R09.89 Other specified symptoms and signs involving the circulatory and respiratory systems